=== PATIENT | female | born 1990 | race Caucasian/White ===

== ENCOUNTER 2016-11-01 17:18 | Emergency (ER) | payer OTHER ==
[~2016-11-01] VITALS: Ht 152.4 cm; Wt 67.6 kg
[~2016-11-01 17:18] MED LIST: ALBU0.08 INH; ALBUAER19 INH; BCPILLS PO; ESCI1TAB10 PO; HYOS0.1255 PO; MRC50 PO; ONDA4TAB7 SL; RMCI IV; TRAM-10 PO
[2016-11-01 17:34] VITALS: Ht 152.4 cm; Wt 67.6 kg
[2016-11-01] MEDS ORDERED: SODIUM CHLORIDE 0.9% 1000ML 1,000 ML IV STA (18:01)
[2016-11-01] MEDS ORDERED: ONDANSETRON INJ 2 MG/ML 2 ML VIAL IV STA (18:01)
[2016-11-01] MEDS ORDERED: MoRPHine SULFATE 4 MG/ML 1 ML CARP\\VIAL IV STA ×2 (18:01→19:39)
[2016-11-01 18:14] LABS: URINE APPEARANCE CLEAR (CLEAR); URINE BILIRUBIN NEG (NEG); URINE COLOR YELLOW; URINE EPITHELIAL CELL AUTO >30 /lpf (0-5); URINE NITRITE NEG (NEG); URINE SPECIFIC GRAVITY 1.011 (1.000-1.030); UROBILINOGEN NEG (NEG)
[2016-11-01 18:15] LABS: PREG INTERNAL NEGATIVE QC NEG CLEAR BACKGROUND; PREG INTERNAL POSITIVE QC POS CONTROL LINE
[2016-11-01] MEDS ORDERED: VNTHFA/IN INH (18:19)
[2016-11-01] MEDS ORDERED: HYOS1TAB PO (18:19)
[2016-11-01] MEDS ORDERED: JNL12021 PO (18:19)
[2016-11-01 18:21] LABS: MANUAL MICROSCOPIC REQUIRED? NO; REVIEW REQ? NO
[2016-11-01] MEDS ORDERED: ONDA4TAB10 SL (18:21)
[2016-11-01] MEDS ORDERED: ACET-1256 PO (18:24)
[2016-11-01] MEDS ORDERED: ALBINS/ INH (18:24)
[2016-11-01 18:33] LABS: BASO % 1.1 %; BASO ABS # 0.09 K/uL (0-0.2); COMPLETE YES; EOS % 1.6 %; HEMATOCRIT 38.3 % (37-47); IG% 0.1 %; LYMPH % 40.4 %; LYMPH ABS # 3.38 K/uL (1.2-3.4); MEAN CELL VOLUME 85.3 fL (80-100); MEAN CORPUSCULAR HEMOGLOBIN 29.8 pg (25-34); MEAN PLATELET VOLUME 10.8 fL (7.4-10.4); MONO % 5.7 %; NEUT % 51.1 %; PLATELET COUNT 309 K/uL (130-400); RED BLOOD COUNT 4.49 M/uL (4.2-5.4); WHITE BLOOD COUNT 8.36 K/uL (4.8-10.8)
[2016-11-01 18:59] LABS: BUN/CREATININE RATIO 12.1 (10-20); CALCIUM 8.8 mg/dl (8.5-10.1); CREATININE 0.76 mg/dl (0.60-1.20); POTASSIUM 3.4 mmol/L (3.5-5.1)
[2016-11-01] MEDS ORDERED: KETOROLAC TROMETHAMINE 30 MG/ML VIAL IV STA (19:39)
--- NOTE | 2016-11-01 21:01 | DIAGNOSTIC IMAGING REPORT ---
ULTRASOUND OF THE APPENDIX CLINICAL HISTORY: Right lower quadrant abdominal pain. COMPARISON STUDY: Multiple prior abdominal CT scans, most recently dated 09/08/2016 FINDINGS: Real-time, grayscale, and color flow sonography of the right lower quadrant was performed to assess for acute appendicitis. The appendix was not discretely visualized. No inflammatory changes or free fluid are seen in the right lower quadrant. No lymphadenopathy was seen. IMPRESSION: Nonvisualization of the appendix. Note that this does not exclude acute appendicitis. Electronically signed by: Alex Nichole M.D. 11/01/2016 8:59 PM Dictated Date/Time: 11/01/2016 8:59 PM
--- NOTE | 2016-11-01 21:03 | DIAGNOSTIC IMAGING REPORT ---
ULTRASOUND OF THE PELVIS CLINICAL HISTORY: Right pelvic pain. COMPARISON STUDY: Multiple prior pelvic CT scans, most recently dated 09/08/2016. TECHNIQUE: Real-time, grayscale, and color flow sonography of the pelvis is performed both transabdominally and endovaginally. Images are reviewed in the transverse and longitudinal planes. FINDINGS: Uterus: The uterus is normal in size and echotexture, measuring 8.6 x 2.9 x 4.9 cm. A small nabothian cyst is incidentally noted in the cervix. Endometrium: The endometrium is normal in appearance, and the endometrial stripe is normal in thickness measuring up to 0.5 cm. Ovaries: The ovaries are normal in size and morphology . The right ovary was only seen transabdominally. The right ovary measures 3.1 x 1.4 x 2.0 cm and the left ovary measures 2.4 x 1.3 x 1.8 cm. There are bilateral ovarian follicles. Normal Doppler waveforms are shown within both ovaries. Pelvis: There is no free fluid in the cul-de-sac. No concerning adnexal lesion is seen. IMPRESSION: Unremarkable sonographic assessment of the pelvis. Electronically signed by: Alex Nichole M.D. 11/01/2016 9:01 PM Dictated Date/Time: 11/01/2016 9:00 PM
[2016-11-01] MEDS ORDERED: OXYCODONE HCL IR 5 MG TAB (IMMEDIATE RELEASE) PO STA (21:26)
[2016-11-01 21:40] VITALS: BP 122/70; PULSE 87; TEMP 36.9; O2SAT 98
--- NOTE | 2016-11-02 01:20 | EMERGENCY ROOM VISIT NOTE ---
History Report prepared by Rc: Luanne Marina Under the Supervision of: Dr. Luis Jolly M.D. First contact with patient: 17:45 Chief Complaint: ABDOMINAL PAIN Stated Complaint: ABDOMINAL PAIN History of Present Illness The patient is a 25 year old female who presents to the Emergency Room with complaints of persistent lower abdominal pain since yesterday. She describes the pain as sharp. The patient notes that today, she has been increased pain when she tries to push to urinate and defecate. She had about 5 episodes of loose, watery diarrhea today. She also vomited once just prior to arrival, and her mother notes that she does not usually vomit and so brought her in for evaluation. Currently, she feels nauseated. She ate very little yesterday and has not eaten anything today. The patient has a history of Crohn's disease and is on Remicade. She states that she is unsure to tell if her current symptoms feel like Crohn's disease. Her mother notes that she gets abdominal pain frequently, sometimes 1-2 times a week. Her most recent flare-up was about 3 weeks ago. It is typical for her to have a decreased appetite during Crohn's flare ups. Denies fever, abnormal vaginal discomfort/bleeding, chance of , or other complaints. Source of History: patient, parent Onset: yesterday Position: abdomen (lower) Quality: sharp Timing: other (persistent) Modifying Factors (Worsening): urination, defecation Associated Symptoms: + diarrhea, + nausea, + vomiting, No fevers Review of Systems See HPI for pertinent positives & negatives. A total of 10 systems reviewed and were otherwise negative. Past Medical & Surgical Medical Problems: (1) Anemia due to blood loss (2) Asthma (3) Crohns disease (4) Ovarian cyst Surgical Problems: (1) section (2) Hx of cholecystectomy Family History Hypertension Kidney disease Kidney stones Social History Smoking Status: Never Smoker Alcohol Use: none Drug Use: none Marital Status: single Housing Status: lives with family Occupation Status: employed Current/Historical Medications Scheduled Escitalopram Oxalate (Lexapro), 20 MG PO QPM Ethinyl Estradiol/Norethindr (10/27), 1 TAB PO DAILY Infliximab (Remicade), 1 DOSE IV Q8WK Mercaptopurine (Mercaptopurine), 50 MG PO DAILY Scheduled PRN Acetaminophen (Tylenol), 1,000 MG PO Q6H PRN for Pain or Fever Albuterol Hfa (Ventolin Hfa), 2 PUFFS INH QID PRN for Asthma Symptoms Albuterol Sulf (Proventil 0.083% 2.5MG/3ML), 2.5 MG INH QID PRN for Wheezing Hyoscyamine Sulfate (Levsin), 0.25 MG PO TID PRN for Abdominal Pain/Cramping Ondasetron Odt (Zofran Odt), 4 MG SL Q6H PRN for Nausea or Vomiting Allergies Coded Allergies: No Known Allergies (Verified , `, 09/08/16) Physical Exam Vital Signs Date Time Temp Pulse Resp B/P Pulse Ox O2 Delivery O2 Flow Rate FiO2 11/01/16 21:40 36.9 87 16 122/70 98 11/01/16 21:13 87 16 122/70 98 Room Air 11/01/16 19:22 85 16 124/82 100 Room Air 11/01/16 17:34 36.9 108 18 139/87 100 Room Air Physical Exam Constitutional: Vital signs reviewed. Eyes: Pupils are equal round reactive to light. Conjunctiva are noninjected. ENT: Pharynx is clear without erythema or exudate. Mucous membranes are moist. Neck supple without meningeal signs. Respiratory: Clear to auscultation bilaterally. Breath sounds are equal bilaterally. Cardiovascular: Regular rate and rhythm. No rubs or gallops. GI: Soft, nondistended, right lower quadrant tenderness. No guarding. Positive obturator and psoas sign. Negative Rovsing's sign. Bowel sounds are present. Musculoskeletal: No peripheral edema. Integumentary: No cyanosis. Neurological: The patient is awake and alert. No focal deficits. Psychiatric: Normal affect. Medical Decision & Procedures ER Provider Diagnostic Interpretation: US results as stated below per my review and radiologist interpretation. ULTRASOUND OF THE PELVIS CLINICAL HISTORY: Right pelvic pain. COMPARISON STUDY: Multiple prior pelvic CT scans, most recently dated 09/08/2016. TECHNIQUE: Real-time, grayscale, and color flow sonography of the pelvis is performed both transabdominally and endovaginally. Images are reviewed in the transverse and longitudinal planes. FINDINGS: Uterus: The uterus is normal in size and echotexture, measuring 8.6 x 2.9 x 4.9 cm. A small nabothian cyst is incidentally noted in the cervix. Endometrium: The endometrium is normal in appearance, and the endometrial stripe is normal in thickness measuring up to 0.5 cm. Ovaries: The ovaries are normal in size and morphology . The right ovary was only seen transabdominally. The right ovary measures 3.1 x 1.4 x 2.0 cm and the left ovary measures 2.4 x 1.3 x 1.8 cm. There are bilateral ovarian follicles. Normal Doppler waveforms are shown within both ovaries. Pelvis: There is no free fluid in the cul-de-sac. No concerning adnexal lesion is seen. IMPRESSION: Unremarkable sonographic assessment of the pelvis. Electronically signed by: Alex Nichole M.D. 11/01/2016 9:01 PM Dictated Date/Time: 11/01/2016 9:00 PM ULTRASOUND OF THE PELVIS CLINICAL HISTORY: Right pelvic pain. COMPARISON STUDY: Multiple prior pelvic CT scans, most recently dated 09/08/2016. TECHNIQUE: Real-time, grayscale, and color flow sonography of the pelvis is performed both transabdominally and endovaginally. Images are reviewed in the transverse and longitudinal planes. FINDINGS: Uterus: The uterus is normal in size and echotexture, measuring 8.6 x 2.9 x 4.9 cm. A small nabothian cyst is incidentally noted in the cervix. Endometrium: The endometrium is normal in appearance, and the endometrial stripe is normal in thickness measuring up to 0.5 cm. Ovaries: The ovaries are normal in size and morphology . The right ovary was only seen transabdominally. The right ovary measures 3.1 x 1.4 x 2.0 cm and the left ovary measures 2.4 x 1.3 x 1.8 cm. There are bilateral ovarian follicles. Normal Doppler waveforms are shown within both ovaries. Pelvis: There is no free fluid in the cul-de-sac. No concerning adnexal lesion is seen. IMPRESSION: Unremarkable sonographic assessment of the pelvis. Electronically signed by: Alex Nichole M.D. 11/01/2016 9:01 PM Dictated Date/Time: 11/01/2016 9:00 PM ULTRASOUND OF THE APPENDIX CLINICAL HISTORY: Right lower quadrant abdominal pain. COMPARISON STUDY: Multiple prior abdominal CT scans, most recently dated 09/08/2016 FINDINGS: Real-time, grayscale, and color flow sonography of the right lower quadrant was performed to assess for acute appendicitis. The appendix was not discretely visualized. No inflammatory changes or free fluid are seen in the right lower quadrant. No lymphadenopathy was seen. IMPRESSION: Nonvisualization of the appendix. Note that this does not exclude acute appendicitis. Electronically signed by: Alex Nichole M.D. 11/01/2016 8:59 PM Dictated Date/Time: 11/01/2016 8:59 PM Laboratory Results 11/01/16 18:19 Red Blood Count 4.49, Mean Corpuscular Volume 85.3, Mean Corpuscular Hemoglobin 29.8, Mean Corpuscular Hemoglobin Concent 35.0, Mean Platelet Volume 10.8, Neutrophils (%) (Auto) 51.1, Lymphocytes (%) (Auto) 40.4, Monocytes (%) (Auto) 5.7, Eosinophils (%) (Auto) 1.6, Basophils (%) (Auto) 1.1, Neutrophils # (Auto) 4.27, Lymphocytes # (Auto) 3.38, Monocytes # (Auto) 0.48, Eosinophils # (Auto) 0.13, Basophils # (Auto) 0.09 11/01/16 18:19 Test 11/01/16 18:00 11/01/16 18:19 Urine Color YELLOW Urine Appearance CLEAR (CLEAR) Urine pH 7.0 (4.5-7.5) Urine Specific [place] 1.011 (1.000-1.030) Urine Protein NEG (NEG) Urine Glucose (UA) NEG (NEG) Urine Ketones NEG (NEG) Urine Occult Blood NEG (NEG) Urine Nitrite NEG (NEG) Urine Bilirubin NEG (NEG) Urine Urobilinogen NEG (NEG) Urine Leukocyte Esterase TRACE (NEG) Urine WBC (Auto) 5-10 /hpf (0-5) Urine RBC (Auto) 0-4 /hpf (0-4) Urine Hyaline Casts (Auto) 1-5 /lpf (0-5) Urine Epithelial Cells (Auto) >30 /lpf (0-5) Urine Bacteria (Auto) NEG (NEG) Urine Test NEG (NEG) White Blood Count 8.36 K/uL (4.8-10.8) Red Blood Count 4.49 M/uL (4.2-5.4) Hemoglobin 13.4 g/dL (12.0-16.0) Hematocrit 38.3 % (37-47) Mean Corpuscular Volume 85.3 fL (80-100) Mean Corpuscular Hemoglobin 29.8 pg (25-34) Mean Corpuscular Hemoglobin Concent 35.0 g/dl (32-36) Platelet Count 309 K/uL (130-400) Mean Platelet Volume 10.8 fL (7.4-10.4) Neutrophils (%) (Auto) 51.1 % Lymphocytes (%) (Auto) 40.4 % Monocytes (%) (Auto) 5.7 % Eosinophils (%) (Auto) 1.6 % Basophils (%) (Auto) 1.1 % Neutrophils # (Auto) 4.27 K/uL (1.4-6.5) Lymphocytes # (Auto) 3.38 K/uL (1.2-3.4) Monocytes # (Auto) 0.48 K/uL (0.11-0.59) Eosinophils # (Auto) 0.13 K/uL (0-0.5) Basophils # (Auto) 0.09 K/uL (0-0.2) RDW Standard Deviation 39.5 fL (36.4-46.3) RDW Coefficient of Variation 12.6 % (11.5-14.5) Immature Granulocyte % (Auto) 0.1 % Immature Granulocyte # (Auto) 0.01 K/uL (0.00-0.02) Anion Gap 12.0 mmol/L (3-11) Est Creatinine Clear Calc Drug Dose 95.4 ml/min Estimated GFR () 124.6 Estimated GFR (Non- 107.5 BUN/Creatinine Ratio 12.1 (10-20) Calcium Level 8.8 mg/dl (8.5-10.1) Total Bilirubin 0.6 mg/dl (0.2-1) Direct Bilirubin 0.1 mg/dl (0-0.2) Aspartate Amino Transf (AST/SGOT) 16 U/L (15-37) Alanine Aminotransferase (ALT/SGPT) 16 U/L (12-78) Alkaline Phosphatase 65 U/L (45-117) Total Protein 8.3 gm/dl (6.4-8.2) Albumin 4.0 gm/dl (3.4-5.0) Lipase 167 U/L (73-393) Laboratory results as reviewed by me. Medications Administered Medications (Trade) Dose Ordered Sig/Justice Route Start Time Stop Time Status Last Admin Dose Admin Morphine Sulfate (MoRPHine SULFATE INJ) 4 mg ONE STAT IV 11/01/16 18:01 11/01/16 18:03 DC 11/01/16 18:51 4 MG Ondansetron HCl 4 mg 4 mg NOW STAT IV 11/01/16 18:01 11/01/16 18:03 DC 11/01/16 18:50 4 MG Sodium Chloride (Nss 1000ml) 1,000 ml @ 999 mls/hr Q1H1M STAT IV 11/01/16 18:01 11/01/16 19:01 DC 11/01/16 18:49 999 MLS/HR Ketorolac Tromethamine (Toradol Inj) 10 mg NOW STAT IV 11/01/16 19:39 11/01/16 19:41 DC 11/01/16 20:01 10 MG Morphine Sulfate (MoRPHine SULFATE INJ) 4 mg NOW STAT IV 11/01/16 19:39 11/01/16 19:41 DC 11/01/16 20:01 4 MG Oxycodone HCl (Roxicodone Immediate Rel Tab) 5 mg NOW STAT PO 11/01/16 21:26 11/01/16 21:27 DC 11/01/16 21:41 5 MG ED Course 1750: The patient was evaluated in room C11. A complete history and physical exam was performed. 1800: Ordered NSS 1000 ml @ 999 mls/hr IV, Zofran Inj 4 mg IV, Morphine Sulfate 4 mg IV. 1938: I reassessed the patient. She was still having pain. We talked further and she does not want a CT scan but agrees to a ultrasound of the pelvis and right lower quadrant. Ordered Morphine Sulfate 4 mg IV, Toradol Inj 10 mg IV. 2119: I reassessed the patient. She still does not want a CT scan. She feels better, but said that it hurt when her abdomen was pressed on with the ultrasound probe. She said that she will follow up with her doctor tomorrow. The patient will be discharged home. 2125: Ordered Oxycodone HCl 5 mg PO. Medical Decision This is a 25-year-old female presents with right lower quadrant pain. Differential diagnosis includes Crohn's disease exacerbation, appendicitis, ovarian cyst, ectopic , ovarian torsion. I did perform a limited focused review of portions of the patient's old chart on the electronic medical record. She has been here multiple times for abdominal pain from Crohn's disease. She was most recently here September 08 and had an abdominal CT which was negative for acute process. I did evaluate the patient as noted above. The patient is presenting with pain in her right lower quadrant. This is where she frequently gets pain due to her Crohn's disease. Today her pain feels similar to her prior episodes but she vomited which is not common for her. She gets pain from her Crohn's disease at least 1-2 times a week according to her mother. She is tender in the right lower quadrant which is also common for her when she has this pain. 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 IV access was established. I did treat patient with IV morphine and Zofran. I did order and personally review the patient's urinalysis as described above. I did order and review the patient's blood work as noted in the electronic medical record. Her white blood cell count is not elevated. I did reevaluate the patient. She is still having pain and was given additional morphine IV. I did have a discussion with her about the possibility of appendicitis and obtaining a CT scan. I was hesitant to do so given the number frequent CTs she has had and the risk of radiation exposure. She and her mother agreed that such exposure was not desirable. She does understand that I cannot definitively rule out appendicitis without a CT scan. After further discussion I did order an ultrasound of the right lower quadrant and pelvis. I did review the images myself as well as the radiology report as described above. There is no evidence of ovarian cyst or torsion. Her right lower quadrant ultrasound was indeterminate. I did reassess the patient. She does state that her pain is better but was somewhat worsened by the pressure from the ultrasound probe. After further discussion with her and her mother it was decided that she would wait 12-24 hours and be reassessed rather than have a CT scan at this time. She was given an oxycodone for pain because of the ultrasound but she will return immediately should her pain get much worse or she develop fever. She will try to see her doctor tomorrow for reassessment but in the event that she is unable to do so and has significant pain she will return here for assessment and possible CT scan depending on her symptoms. While her symptoms may be due to Crohn's disease I did not wish to give her prednisone at this time as it may falsely elevate her white blood cell count and if she is assessed tomorrow I did not wish for this to undergo a influence the decision-making regarding a CT scan. She was in agreement with this. She was discharged in good condition. Impression Primary Impression: RLQ abdominal pain Additional Impression: Crohns disease Scribe Attestation I did perform a limited focused review of portions of the patient's old chart on the electronic medical record. The patient has had no recent pertinent visits to this hospital. Departure Information Dispostion Home / Self-Care Referrals No Doctor, Assigned (PCP) Patient Instructions ED Abd Pain Appendx Poss Fem, My [facility] Additional Instructions You have been examined and treated today on an emergency basis only. This is not a substitute for, or an effort to provide, complete comprehensive medical care. It is impossible to recognize and treat all injuries or illnesses in a single emergency department visit. It is therefore important that you follow up closely with your physician in 24 hours. Call as soon as possible for an appointment. Return for worsening symptoms or if you develop fever, vomiting, or any other concerning symptoms. Return here if unable to see your doctor and you are still having persistent pain. Problem Qualifiers Additional Impression: Crohns disease Gastrointestinal tract location: unspecified location
== END 2016-11-01 21:40 | disposition home or self-care (01) ==
LOC: C.EDB 17:19 → C.EDC 21:40
DX: R10.31 Right lower quadrant pain (principal); K50.90 Crohn's disease, unspecified, without complications; J45.909 Unspecified asthma, uncomplicated; Z90.49 Acquired absence of other specified parts of digestive tract; Z82.49 Family history of ischemic heart disease and other diseases of the circulatory system; Z79.899 Other long term (current) drug therapy

== ENCOUNTER → 2017-08-16 | Outpatient (CLI) | payer OTHER ==
[~2017-08-16] MED LIST changes: +ACET-1256 PO; +ALBINS/ INH; -ALBU0.08 INH; -ALBUAER19 INH; -BCPILLS PO; +GADAVIST IV PRN; +GLUCAGON FOR INJ 1 MG VIAL ONE; -HYOS0.1255 PO; +HYOS1TAB PO; +JNL12021 PO; +NURSING VERBAL MED ORDER ONE; +ONDA4TAB10 SL; -ONDA4TAB7 SL; -TRAM-10 PO; +VNTHFA/IN INH
--- NOTE | 2017-08-16 10:38 | DIAGNOSTIC IMAGING REPORT ---
MRI ENTEROGRAPHY OF THE ABDOMEN AND PELVIS WITH AND WITHOUT CONTRAST CLINICAL HISTORY: Crohn's disease. COMPARISON STUDY: CT of the abdomen and pelvis 09/08/2016. Abdominal enterography 06/23/2016. TECHNIQUE: The patient ingested 2 bottles of the Volumen. 1 mg of glucagon was administered IM at 9:30 AM. Utilizing 1.5 Ava magnet, multiplanar, multi echo imaging the abdomen and pelvis was performed pre and postcontrast ministration. Injection of 7.5 cc of Gadavist IV was uneventful. 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 The dominant 1.6 cm lesion within the upper pole of the left kidney is now T1 hyperintense consistent with a proteinaceous/hemorrhagic cyst. There is a duplicated IVC. Normal appendix. The liver, spleen, adrenal glands and pancreas are normal. There is no ascites or lymphadenopathy within the abdomen or the pelvis. There is no evidence for a bowel obstruction. There is apparent mild wall thickening of the terminal ileum that extends for 3 cm. This is best shown on coronal postcontrast image 43 of 88. This has improved. No additional sites of bowel wall thickening are present. No fistula or abscess is identified within the abdomen or the pelvis. IMPRESSION: Slight wall thickening with a 3 cm segment of the terminal ileum which has improved. This favors a mild ileitis rather than underdistention and would be consistent with the provided history of Crohn's disease. No abscess, fistula or bowel obstruction. No additional sites of bowel wall thickening. Electronically signed by: Farzad Conde M.D. 08/16/2017 10:36 AM Dictated Date/Time: 08/16/2017 10:18 AM
== END | disposition home or self-care (01) ==
LOC: C.MRI 07:49
PROVIDERS: ATTEND Internal Medicine
DX: K50.90 Crohn's disease, unspecified, without complications (principal)

== ENCOUNTER → 2017-09-20 | Outpatient (CLI) | payer OTHER ==
[~2017-09-20] MED LIST changes: -GADAVIST IV PRN; -GLUCAGON FOR INJ 1 MG VIAL ONE; -NURSING VERBAL MED ORDER ONE
[2017-09-20 13:02] LABS: BASO % 0.5 %; BASO ABS # 0.03 K/uL (0-0.2); COMPLETE YES; EOS % 8.8 %; HEMATOCRIT 37.5 % (37-47); IG% 0.2 %; LYMPH % 28.4 %; LYMPH ABS # 1.64 K/uL (1.2-3.4); MEAN CELL VOLUME 87.8 fL (80-100); MEAN CORPUSCULAR HEMOGLOBIN 30.7 pg (25-34); MEAN CORPUSCULAR HGB CONC 34.9 g/dl (32-36); MEAN PLATELET VOLUME 11.5 fL (7.4-10.4); MONO % 8.8 %; NEUT % 53.3 %; PLATELET COUNT 263 K/uL (130-400); RED BLOOD COUNT 4.27 M/uL (4.2-5.4); WHITE BLOOD COUNT 5.77 K/uL (4.8-10.8)
[2017-09-20 13:30] LABS: ALT/SGPT 31 U/L (12-78); AST/SGOT 34 U/L (15-37); BLOOD UREA NITROGEN 8 mg/dl (7-18); BUN/CREATININE RATIO 11.3 (10-20); C-REACTIVE PROTEIN 0.72 mg/dl (0-0.29); CALCIUM 7.9 mg/dl (8.5-10.1); CARBON DIOXIDE 22 mmol/L (21-32); CHLORIDE 107 mmol/L (98-107); CREATININE 0.71 mg/dl (0.60-1.20); GLUCOSE 92 mg/dl (70-99); POTASSIUM 3.5 mmol/L (3.5-5.1); SODIUM 137 mmol/L (136-145)
[2017-09-20 13:33] LABS: ALB/GLOB RATIO 0.9 (0.9-2); ALKALINE PHOSPHATASE 68 U/L (45-117)
== END | disposition home or self-care (01) ==
LOC: C.LAB1850 12:08
PROVIDERS: ATTEND Physician Assistant
DX: K50.90 Crohn's disease, unspecified, without complications (principal); R19.7 Diarrhea, unspecified

== ENCOUNTER → 2017-10-15 | Day surgery (SDC) | payer OTHER ==
[2017-09-27 13:20] VITALS: Ht 152.4 cm; Wt 74.1 kg
[~2017-10-15] VITALS: Ht 152.4 cm; Wt 74.1 kg
[~2017-10-15] MED LIST changes: -ACET-1256 PO; -ESCI1TAB10 PO; +FENTANYL CITRATE INJ 50 MCG/1 ML 2 ML VIAL ONE; +LIDOCAINE HCL 2% 2 ML VIAL (20MG/ML) ONE; -ONDA4TAB10 SL; +ONDA4TAB46 PO; +PRED10TA PO; +PROPOFOL IV EMULSION 10 MG/ML 20 ML VIAL IV ONE; +SODIUM CHLORIDE 0.9% 500ML 500 ML IV ONE
[2017-10-15 14:03] VITALS: TEMP 37.1
--- NOTE | 2017-10-15 14:25 | Endo History and Physical ---
History & Physical Date of Service: Oct 15, 2017. Chief Complaint: Crohn's Disease Referring Physician: Dr. Charles History of Present Illness 26 yo CF who presents for colonoscopy secondary to Crohn's Disease. Past Medical History Asthma, Gastrointestinal Disorder, Depression Past Surgical History Hx Cardiac Surgery: No Hx Internal Defibrillator: No Hx Pacemaker: No Hx Abdominal Surgery: Yes (VISH, X 1) Hx of Implantable Prosthesis: No Hx Post-Op Nausea and Vomiting: No Hx Cancer Surgery: No Hx Thoracic Surgery: No Hx Orthopedic: No Hx Urinary Tract Surgery: No Family History None Social History Smoking Status: Never Smoker Hx Substance Use: No Hx Alcohol Use: No Allergies Coded Allergies: No Known Allergies (Verified , `, 10/15/17) Current Medications Reported Home Medications Medications Dose Route/Sig Max Daily Dose Days Date Category Dose Instructions Prednisone 10 Mg Tab 0 PO UD 09/27/17 Reported STERAPRED 10MG 12 DAY Zofran (Ondansetron HCl) 4 Mg Tab 4 Mg PO Q6H PRN 09/27/17 Reported Levsin (Hyoscyamine Sulfate) 0.125 Mg Tab 0.125 Mg PO TID PRN 09/27/17 Reported Proventil 0.083% 2.5MG/3ML (Albuterol Sulf) 2.5 Mg/3 Ml Nebu 2.5 Mg INH QID PRN 11/01/16 Reported Ventolin Hfa (Albuterol) 200 Puffs/05114 Mcg Aers 2 Puffs INH QID PRN 11/01/16 Reported Junel 10/27 (Ethinyl Estradiol/Norethindrone) 1 Ea Tab 1 Tab PO QAM 11/01/16 Reported Mercaptopurine 50 Mg Tab 50 Mg PO QAM 11/18/15 Reported Remicade (Infliximab) 100 Mg/10 Ml Inj 1 Dose IV Q8WK 11/05/15 Reported Vital Signs Weight (Kilograms): 74.09 Height (Feet): 5 Height (Inches): 0 Date Time Temp Pulse Resp B/P (MAP) Pulse Ox O2 Delivery O2 Flow Rate FiO2 10/15/17 14:03 37.1 77 24 120/68 (85) 96 Room Air Physical Exam General Appearance: WD/WN, no apparent distress Respiratory/Chest: Auscultation: breath sounds normal Cardiovascular: Heart Auscultation: RRR Abdomen: Bowel Sounds: normal Inspection & Palpation: soft, non-distended, no tenderness, guarding & rebound Assessment and Plan Assessment: 26 yo CF who presents for colonoscopy secondary to Crohn's Disease. Plan: Proceed with colonoscopy.
--- NOTE | 2017-10-15 15:14 | GI REPORT ---
Procedure Date: 10/15/2017 2:23 PM Procedure: Colonoscopy Indications: Follow-up of Crohn's disease Medicines: Monitored Anesthesia Care Complications: No immediate complications. Estimated Blood Loss: Estimated blood loss: none. Procedure: Pre-Anesthesia Assessment: - Prior to the procedure, a History and Physical was performed, and patient medications and allergies were reviewed. The patient's tolerance of previous anesthesia was also reviewed. The risks and benefits of the procedure and the sedation options and risks were discussed with the patient. All questions were answered, and informed consent was obtained. Prior Anticoagulants: The patient has taken no previous anticoagulant or antiplatelet agents. ASA Grade Assessment: II - A patient with mild systemic disease. After reviewing the risks and benefits, the patient was deemed in satisfactory condition to undergo the procedure. After I obtained informed consent, the scope was passed under direct vision. Throughout the procedure, the patient's blood pressure, pulse, and oxygen saturations were monitored continuously. The scope was introduced through the anus and advanced to the terminal ileum. The colonoscopy was performed without difficulty. The patient tolerated the procedure well. The quality of the bowel preparation was good. The terminal ileum, ileocecal valve, appendiceal orifice, and rectum were photographed. Findings: The perianal and digital rectal examinations were normal. The terminal ileum appeared normal. Biopsies were taken with a cold forceps for histology. The colon (entire examined portion) appeared normal. Biopsies were taken with a cold forceps for histology. Impression: - The examined portion of the ileum was normal. Biopsied. - The entire examined colon is normal. Biopsied. Recommendation: - Resume previous diet. - Continue present medications. - Repeat colonoscopy for surveillance based on pathology results. - Return to GI office as previously scheduled. Shay Yeager DO 10/15/2017 3:13:57 PM This report has been signed electronically. Note Initiated On: 10/15/2017 2:23 PM I attest to the content of the Intraoperative Record and orders documented therein, exceptions below
--- NOTE | 2017-10-15 15:20 | Anesthesiology Progress Note ---
Anesthesia Post Op Note Date & Time Oct 15, 2017 at 15:19 Vital Signs Pain Intensity: 0 Vital Signs Past 12 Hours Date Time Temp Pulse Resp B/P (MAP) Pulse Ox O2 Delivery O2 Flow Rate FiO2 10/15/17 15:10 89 16 100/58 (72) 94 Room Air 10/15/17 14:03 37.1 77 24 120/68 (85) 96 Room Air Notes Mental Status: alert / awake / arousable, participated in evaluation Pt Amnestic to Procedure: Yes Nausea / Vomiting: adequately controlled Pain: adequately controlled Airway Patency, RR, SpO2: stable & adequate BP & HR: stable & adequate Hydration State: stable & adequate Anesthetic Complications: no major complications apparent
--- NOTE | 2017-10-15 15:21 | Discharge Instructions ---
Endoscopy Patient Instructions Date / Procedure(s) Performed Oct 15, 2017. Colonoscopy Allergy Information Coded Allergies: No Known Allergies (Verified , `, 10/15/17) Discharge Date / Findings Oct 15, 2017. Random biopsies of Terminal ileum and colon. No evidence of Crohn's disease activity on this exam. Medication Instructions OK to resume all medications today as prescribed Reported Home Medications Medications Dose Route/Sig Max Daily Dose Days Date Category Dose Instructions Prednisone 10 Mg Tab 0 PO UD 09/27/17 Reported STERAPRED 10MG 12 DAY Zofran (Ondansetron HCl) 4 Mg Tab 4 Mg PO Q6H PRN 09/27/17 Reported Levsin (Hyoscyamine Sulfate) 0.125 Mg Tab 0.125 Mg PO TID PRN 09/27/17 Reported Proventil 0.083% 2.5MG/3ML (Albuterol Sulf) 2.5 Mg/3 Ml Nebu 2.5 Mg INH QID PRN 11/01/16 Reported Ventolin Hfa (Albuterol) 200 Puffs/[id number] Mcg Aers 2 Puffs INH QID PRN 11/01/16 Reported Junel 10/27 (Ethinyl Estradiol/Norethindrone) 1 Ea Tab 1 Tab PO QAM 11/01/16 Reported Mercaptopurine 50 Mg Tab 50 Mg PO QAM 11/18/15 Reported Remicade (Infliximab) 100 Mg/10 Ml Inj 1 Dose IV Q8WK 11/05/15 Reported Provider Instructions Activity Restrictions - No exercising or heavy lifting for 24 hours. - Do not drink alcohol the day of the procedure. - Do not drive a car or operate machinery until the day after the procedure. - Do not make any important decisions or sign important papers in 24 hours after the procedure. Following Day: - Return to full activity which may include returning to work/school. Diet Start your diet with liquids and light foods (jello, soup, juice, toast). Then eat your usual diet if not nauseated. Treatment For Common After Affects For mild abdominal pain, bloating, or excessive gas: - Rest - Eat lightly - Lie on right side Follow-Up Information Follow-up with Dr. Charles as scheduled Anesthesia Information What You Should Know You have had a procedure that required some medicine to reduce anxiety and discomfort. This treatment is called moderate sedation. After receiving the treatment, you may be sleepy, but you will be able to breathe on your own. The effects of the treatment may last for several hours. Follow these instructions along with Activity/Diet recommendations noted above: * Do NOT do anything where dizziness or clumsiness would be dangerous. * Rest quietly at home today, then you can be up and about tomorrow. * Have a responsible person stay with you the rest of today. * You may have had an I.V. today. If so, you may take the dressing off later today. Recommendations Call your doctor if: * Trouble breathing * Continuous vomiting for more than 24 hours * Temperature above 101 degrees * Severe abdominal pain or bloating * Pain not relieved by pain medicine ordered * There is increased drainage or redness from any incision * A large amount of rectal bleeding greater than 2-3 tablespoons. (If you had a polyp/s removed or have hemorrhoids, a small amount of blood - from the rectum is to be expected.) * You have any unanswered questions or concerns. IN THE EVENT OF A SERIOUS EMERGENCY, GO TO THE NEAREST EMERGENCY ROOM Your discharge instructions were prepared by provider Shay Yeager. Patient Instructions Signature Page Chiquita Gama Patient (or Guardian) Signature/Date: I have read and understand the instructions given to me by my caregivers. Caregiver/RN/Doctor Signature/Date: The above-named patient and/or guardian has received patient instructions on this date. + Original Patient Signature Page (only) stays with chart. Please make copy for patient.
[2017-10-15 15:40] VITALS: BP 103/57; PULSE 81; O2SAT 97
== END | disposition home or self-care (01) ==
LOC: C.GI 13:38
PROVIDERS: ATTEND Internal Medicine
DX: Z09 Encounter for follow-up examination after completed treatment for conditions other than malignant neoplasm (principal); K50.90 Crohn's disease, unspecified, without complications; J45.909 Unspecified asthma, uncomplicated; Z79.899 Other long term (current) drug therapy; E66.9 Obesity, unspecified; Z68.31 Body mass index [BMI] 31.0-31.9, adult; Z90.89 Acquired absence of other organs; Z90.49 Acquired absence of other specified parts of digestive tract

== ENCOUNTER 2018-05-26 19:11 | Emergency (ER) | payer OTHER ==
[~2018-05-26] VITALS: Ht 152.4 cm; Wt 71.3 kg
[~2018-05-26 19:11] MED LIST changes: -FENTANYL CITRATE INJ 50 MCG/1 ML 2 ML VIAL ONE; -LIDOCAINE HCL 2% 2 ML VIAL (20MG/ML) ONE; -PRED10TA PO; -PROPOFOL IV EMULSION 10 MG/ML 20 ML VIAL IV ONE; +RIFA550T2 PO; -SODIUM CHLORIDE 0.9% 500ML 500 ML IV ONE
[2018-05-26 19:14] VITALS: TEMP 36.8; Ht 152.4 cm; Wt 71.3 kg
[2018-05-26] MEDS ORDERED: KETOROLAC TROMETHAMINE 30 MG/ML VIAL IV STA (19:28)
[2018-05-26] MEDS ORDERED: ONDANSETRON INJ 2 MG/ML 2 ML VIAL IV STA (19:28)
[2018-05-26] MEDS ORDERED: SODIUM CHLORIDE 0.9% 1000ML 1,000 ML IV STA (19:28)
[2018-05-26] MEDS ORDERED: OPTIRAY 320 IV PRN (19:45)
[2018-05-26 19:51] LABS: BASO % 0.8 %; BASO ABS # 0.07 K/uL (0-0.2); EOS % 1.5 %; EOS ABS # 0.14 K/uL (0-0.5); HEMATOCRIT 36.5 % (37-47); IG# 0.02 K/uL (0.00-0.02); LYMPH % 36.8 %; LYMPH ABS # 3.43 K/uL (1.2-3.4); MEAN CELL VOLUME 83.9 fL (80-100); MEAN CORPUSCULAR HEMOGLOBIN 27.6 pg (25-34); MEAN CORPUSCULAR HGB CONC 32.9 g/dl (32-36); MEAN PLATELET VOLUME 10.9 fL (7.4-10.4); MONO % 6.4 %; NEUT % 54.3 %; NEUT ABS # 5.07 K/uL (1.4-6.5); PLATELET COUNT 264 K/uL (130-400); RED CELL DISTRIBUTION WIDTH CV 13.1 % (11.5-14.5); RED CELL DISTRIBUTION WIDTH SD 39.9 fL (36.4-46.3); WHITE BLOOD COUNT 9.33 K/uL (4.8-10.8)
[2018-05-26 20:11] LABS: ALBUMIN 3.2 gm/dl (3.4-5.0); ALKALINE PHOSPHATASE 65 U/L (45-117); ALT/SGPT 10 U/L (12-78); AST/SGOT 7 U/L (15-37); BLOOD UREA NITROGEN 9 mg/dl (7-18); CALCIUM 8.5 mg/dl (8.5-10.1); CARBON DIOXIDE 25 mmol/L (21-32); GLUCOSE 98 mg/dl (70-99); LIPASE 179 U/L (73-393); POTASSIUM 3.1 mmol/L (3.5-5.1); SODIUM 141 mmol/L (136-145); TOTAL PROTEIN 7.7 gm/dl (6.4-8.2)
--- NOTE | 2018-05-26 20:24 | EMERGENCY ROOM VISIT NOTE ---
History Report prepared by Rc: Paty Hutchins Under the Supervision of: Dr. Juice Amaral D.O. First contact with patient: 19:17 Chief Complaint: FLANK PAIN Stated Complaint: STOMACH PAIN, BACK PAIN, R FLANK PAIN History of Present Illness The patient is a 27 year old female who presents to the Emergency Room with complaints of constant right flank pain starting 2 days ago. The patient states that she awoke with abdominal pain 2 days ago that radiates into her back. She states that she went to her PCP that day who recommended she come to the ED, but she didn't want to come at that time. The patient complains of nausea and pain when trying to push to urinate. The patient denies vomiting, anything making it better or worse, the pain wrapping around her side to her back, vaginal discharge, chance of , burning with urination, and a history of UTIs. The patient notes a history of a cholecystectomy, but denies a history of an appendectomy. The patient notes that she is on oral control and her LNMP was a week ago. She notes that she has been having spotting for the past 2 weeks. Source of History: patient Onset: 2 days ago Position: other (right flank) Quality: other (radiating) Timing: constant Associated Symptoms: + nausea, + back pain, + urinary symptoms (pain when trying to urinate), No vomiting Note: The patient complains of spotting. The patient denies anything making it better/ worse, the pain wrapping around her side to her back, vaginal discharge, chance of , and burning with urination. Review of Systems See HPI for pertinent positives & negatives. A total of 10 systems reviewed and were otherwise negative. Past Medical & Surgical Medical Problems: (1) Anemia due to blood loss (2) Asthma (3) Crohns disease (4) Ovarian cyst Surgical Problems: (1) section (2) Hx of cholecystectomy Family History Hypertension Kidney disease Kidney stones Social History Smoking Status: Never Smoker Alcohol Use: none Drug Use: none Marital Status: single Housing Status: lives with family Occupation Status: employed Current/Historical Medications Scheduled Cephalexin (Keflex), 1 CAP PO TID Ethinyl Estradiol/Norethindr (Junel 10/27), 1 TAB PO QAM Infliximab (Remicade), 1 DOSE IV Q8WK Mercaptopurine (Mercaptopurine), 50 MG PO QAM Rifaximin (Xifaxan), 1 TAB PO BID Scheduled PRN Albuterol Hfa (Ventolin Hfa), 2 PUFFS INH QID PRN for Asthma Symptoms Albuterol Sulf (Proventil 0.083% 2.5MG/3ML), 2.5 MG INH QID PRN for Wheezing Hyoscyamine Sulfate (Levsin), 0.125 MG PO TID PRN for Pain Ondansetron Hcl (Zofran), 4 MG PO Q6H PRN for Nausea Allergies Coded Allergies: No Known Allergies (Verified , `, 05/23/18) Physical Exam Vital Signs Date Time Temp Pulse Resp B/P (MAP) Pulse Ox O2 Delivery O2 Flow Rate FiO2 05/26/18 21:15 05/26/18 20:50 90 16 120/66 96 Room Air 05/26/18 19:14 36.8 89 18 137/88 97 Room Air Physical Exam GENERAL: Sitting up in bed, alert, well appearing, well nourished, no distress, non-toxic EYE EXAM: normal conjunctiva. OROPHARYNX: no exudate, no erythema, lips, buccal mucosa, and tongue normal and mucous membranes are moist NECK: supple, no nuchal rigidity, no adenopathy, non-tender LUNGS: Clear to auscultation. Normal chest wall mechanics HEART: no murmurs, S1 normal and S2 normal ABDOMEN: abdomen soft, minimal tenderness in RLQ, normo-active bowel sounds, no masses, no rebound or guarding. BACK: Back is symmetrical on inspection and there is no deformity, no midline tenderness, no CVA tenderness. SKIN: no rashes and no bruising UPPER EXTREMITIES: upper extremities are grossly normal. LOWER EXTREMITIES: No pitting edema. NEURO EXAM: Normal sensorium, cranial nerves II-XII grossly intact, normal speech, no gross weakness of arms, no gross weakness of legs. Medical Decision & Procedures ER Provider Diagnostic Interpretation: Radiology results as stated below per my review and the radiologist's interpretation: CT OF THE ABDOMEN AND PELVIS WITH CONTRAST CLINICAL HISTORY: Right lower quadrant abdominal pain. COMPARISON STUDY: CT of the abdomen and pelvis September 08, 2016 and pelvic ultrasound November 01, 2016. TECHNIQUE: Following IV administration of 122 mL of Optiray-320, axial images of the abdomen and pelvis were obtained from the lung bases to the proximal femurs. Images were reviewed in the axial, sagittal, and coronal planes. IV contrast was administered without complication. A dose lowering technique was utilized adhering to the principles of ALARA. CT DOSE: 294.08 mGy.cm FINDINGS: Lung bases are clear. The liver, spleen, adrenal glands and pancreas are normal. There is no biliary ductal dilatation status post cholecystectomy. There is no peripancreatic infiltration. 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 Prominence of the collecting systems is unchanged. A few cysts are noted within the kidney. A 1.3 cm intermediate attenuation focus within the upper aspect of the left renal moiety has decreased in size since prior CT. Therefore, this is benign. The caliber and wall thickness of small and large bowel are normal. The appendix is normal. There is no free fluid. There is no lymphadenopathy. No suspicious osseous lesion is present. No ureteral calculi are identified. IMPRESSION: 1. No acute process within the abdomen and pelvis. 2. Normal appendix. No bowel obstruction. 3. Horseshoe kidney. Electronically signed by: David Arreguin M.D. 05/26/2018 8:44 PM Dictated Date/Time: 05/26/2018 8:37 PM Laboratory Results 05/26/18 19:35 Red Blood Count 4.35, Mean Corpuscular Volume 83.9, Mean Corpuscular Hemoglobin 27.6, Mean Corpuscular Hemoglobin Concent 32.9, Mean Platelet Volume 10.9, Neutrophils (%) (Auto) 54.3, Lymphocytes (%) (Auto) 36.8, Monocytes (%) (Auto) 6.4, Eosinophils (%) (Auto) 1.5, Basophils (%) (Auto) 0.8, Neutrophils # (Auto) 5.07, Lymphocytes # (Auto) 3.43, Monocytes # (Auto) 0.60, Eosinophils # (Auto) 0.14, Basophils # (Auto) 0.07 05/26/18 19:35 Test 05/26/18 19:35 05/26/18 19:40 White Blood Count 9.33 K/uL (4.8-10.8) Red Blood Count 4.35 M/uL (4.2-5.4) Hemoglobin 12.0 g/dL (12.0-16.0) Hematocrit 36.5 % (37-47) Mean Corpuscular Volume 83.9 fL (80-100) Mean Corpuscular Hemoglobin 27.6 pg (25-34) Mean Corpuscular Hemoglobin Concent 32.9 g/dl (32-36) Platelet Count 264 K/uL (130-400) Mean Platelet Volume 10.9 fL (7.4-10.4) Neutrophils (%) (Auto) 54.3 % Lymphocytes (%) (Auto) 36.8 % Monocytes (%) (Auto) 6.4 % Eosinophils (%) (Auto) 1.5 % Basophils (%) (Auto) 0.8 % Neutrophils # (Auto) 5.07 K/uL (1.4-6.5) Lymphocytes # (Auto) 3.43 K/uL (1.2-3.4) Monocytes # (Auto) 0.60 K/uL (0.11-0.59) Eosinophils # (Auto) 0.14 K/uL (0-0.5) Basophils # (Auto) 0.07 K/uL (0-0.2) RDW Standard Deviation 39.9 fL (36.4-46.3) RDW Coefficient of Variation 13.1 % (11.5-14.5) Immature Granulocyte % (Auto) 0.2 % Immature Granulocyte # (Auto) 0.02 K/uL (0.00-0.02) Anion Gap 9.0 mmol/L (3-11) Est Creatinine Clear Calc Drug Dose 91.4 ml/min Estimated GFR () 115.5 Estimated GFR (Non- 99.6 BUN/Creatinine Ratio 11.6 (10-20) Calcium Level 8.5 mg/dl (8.5-10.1) Total Bilirubin 0.2 mg/dl (0.2-1) Direct Bilirubin < 0.1 mg/dl (0-0.2) Aspartate Amino Transf (AST/SGOT) 7 U/L (15-37) Alanine Aminotransferase (ALT/SGPT) 10 U/L (12-78) Alkaline Phosphatase 65 U/L (45-117) Total Protein 7.7 gm/dl (6.4-8.2) Albumin 3.2 gm/dl (3.4-5.0) Lipase 179 U/L (73-393) Urine Color RED Urine Appearance CLOUDY (CLEAR) Urine pH 8.5 (4.5-7.5) Urine Specific [place] 1.021 (1.000-1.030) Urine Protein NEG (NEG) Urine Glucose (UA) NEG (NEG) Urine Ketones TRACE (NEG) Urine Occult Blood 3+ (NEG) Urine Nitrite NEG (NEG) Urine Bilirubin NEG (NEG) Urine Urobilinogen NEG (NEG) Urine Leukocyte Esterase TRACE (NEG) Urine WBC (Auto) 10-30 /hpf (0-5) Urine RBC (Auto) >30 /hpf (0-4) Urine Hyaline Casts (Auto) 5-10 /lpf (0-5) Urine Epithelial Cells (Auto) >30 /lpf (0-5) Urine Bacteria (Auto) NEG (NEG) Urine Test NEG (NEG) Laboratory results per my review. Medications Administered Medications (Trade) Dose Ordered Sig/Justice Route Start Time Stop Time Status Last Admin Dose Admin Sodium Chloride 1,000 ml @ 999 mls/hr Q1H1M STAT IV 05/26/18 19:28 05/26/18 20:28 DC 05/26/18 19:37 999 MLS/HR Ondansetron HCl (Zofran Inj) 4 mg NOW STAT IV 05/26/18 19:28 05/26/18 19:30 DC 05/26/18 19:37 4 MG Ketorolac Tromethamine (Toradol Inj) 30 mg NOW STAT IV 05/26/18 19:28 05/26/18 19:30 DC 05/26/18 19:37 30 MG Cephalexin Monohydrate (Keflex Cap) 500 mg NOW ONCE PO 05/26/18 21:15 05/26/18 21:16 DC 05/26/18 21:16 500 MG ED Course ED COURSE: Vital signs were reviewed and showed that they were normal. The patients medical record was reviewed The above diagnostic studies were performed and reviewed. ED treatments and interventions as stated above. 1924: The patient was evaluated in room C9. A complete history and physical examination was performed. 1927: Ordered Toradol Inj 30 mg IV, Zofran Inj 4 mg IV, NSS 1000 ml @ 999 mls/ hr IV. 2101: Upon reevaluation, the patient is resting comfortably. I discussed my findings with the patient and she understands and agrees with the treatment plan. Based on the patients age, coexisting illnesses, exam and lab findings the decision to treat as an outpatient was made. The patient remained stable while under my care. The patient appeared well at the time of discharge. 2114: Ordered Keflex Cap 500 mg PO. Medical Decision Differential diagnoses includes but is not limited to gastritis, peptic ulcer disease, GERD, gallbladder disease, pancreatitis, small bowel obstruction, acute coronary syndrome, pericarditis, ischemic bowel, irritable bowel disease, irritable bowel syndrome, appendicitis, diverticulitis, malignancy, hernia, urinary tract infection, torsion, /ectopic , perforation, trauma, infectious. Patient is a 27-year-old female who presents the ER for right lower quadrant abdominal pain which is been present since this past Sunday. She does admit to some urinary complaints per vitals are stable. CBC along with BMP shows a mild hypokalemia. Bilirubin along with LFTs and lipase was normal. negative. UA was contaminated. With urinary symptoms did elect to place on Keflex. CT abdomen pelvis shows no signs of acute appendicitis. No obvious signs of ovarian torsion. Patient was updated bedside. She was given fluids and Toradol. She is discharged to follow-up with PCP as an outpatient. Discussed with Pt concerning signs and symptoms to watch out for. Pt was instructed to follow up with their PCP and discussed with the patient their option to return to the ED at anytime for persistent or worsening symptoms. The appropriate anticipatory guidance and out-patient management, including indications for return to the emergency department, were explained at length to the patient and understood. Medication Reconcilliation Current Medication List: was personally reviewed by me Blood Pressure Screening Patient's blood pressure: Normal blood pressure Blood pressure disposition: Did not require urgent referral Impression Primary Impression: Abdominal pain Scribe Attestation The scribe's documentation has been prepared under my direction and personally reviewed by me in its entirety. I confirm that the note above accurately reflects all work, treatment, procedures, and medical decision making performed by me. Departure Information Dispostion Home / Self-Care Prescriptions Cephalexin (KEFLEX) 500 Mg Cap 1 CAP PO TID for 7 Days, #21 CAP Prov: Juice Amaral, DO 05/26/18 Referrals Evaristo Charles M.D.([facility]) (PCP) Forms HOME CARE DOCUMENTATION FORM, IMPORTANT VISIT INFORMATION Patient Instructions My [facility] Additional Instructions Please follow up with your primary care doctor with in the next 24 hours. Any worsening of your symptoms, please return to the ED immediately. This includes any fevers greater than 100.4, worsening pain, chest pain, shortness breath, persistent nausea, vomiting, unable to eat or drink, or any other concerning signs or symptoms from your standpoint. Please take antibiotics as prescribed. Problem Qualifiers Primary Impression: Abdominal pain Abdominal location: unspecified location Qualified Codes: R10.9 - Unspecified abdominal pain
--- NOTE | 2018-05-26 20:45 | DIAGNOSTIC IMAGING REPORT ---
CT OF THE ABDOMEN AND PELVIS WITH CONTRAST CLINICAL HISTORY: Right lower quadrant abdominal pain. COMPARISON STUDY: CT of the abdomen and pelvis September 08, 2016 and pelvic ultrasound November 01, 2016. TECHNIQUE: Following IV administration of 122 mL of Optiray-320, axial images of the abdomen and pelvis were obtained from the lung bases to the proximal femurs. Images were reviewed in the axial, sagittal, and coronal planes. IV contrast was administered without complication. A dose lowering technique was utilized adhering to the principles of ALARA. CT DOSE: 294.08 mGy.cm FINDINGS: Lung bases are clear. The liver, spleen, adrenal glands and pancreas are normal. There is no biliary ductal dilatation status post cholecystectomy. There is no peripancreatic infiltration. 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 Prominence of the collecting systems is unchanged. A few cysts are noted within the kidney. A 1.3 cm intermediate attenuation focus within the upper aspect of the left renal moiety has decreased in size since prior CT. Therefore, this is benign. The caliber and wall thickness of small and large bowel are normal. The appendix is normal. There is no free fluid. There is no lymphadenopathy. No suspicious osseous lesion is present. No ureteral calculi are identified. IMPRESSION: 1. No acute process within the abdomen and pelvis. 2. Normal appendix. No bowel obstruction. 3. Horseshoe kidney. Electronically signed by: David Arreguin M.D. 05/26/2018 8:44 PM Dictated Date/Time: 05/26/2018 8:37 PM
[2018-05-26 20:50] VITALS: BP 120/66; PULSE 90; O2SAT 96
[2018-05-26] MEDS ORDERED: CEPH-571 PO (21:05)
[2018-05-26] MEDS ORDERED: CEPHALEXIN MONOHYDRATE 250 MG CAP PO ONE (21:15)
--- NOTE | 2018-05-28 13:13 | Pharmacy Progress Note ---
ED Pharmacist Culture FollowUp Date of Service: May 28, 2018. Patient was sent home with a prescription for Cephalexin 500mg PO TID x 7 days, which should cover the e coli and Grp B strep growing from the patient's URINE culture.
== END 2018-05-26 21:15 | disposition home or self-care (01) ==
LOC: C.EDB 19:16 → C.EDC 21:15
DX: R10.31 Right lower quadrant pain (principal); E87.6 Hypokalemia; Z90.49 Acquired absence of other specified parts of digestive tract; K50.90 Crohn's disease, unspecified, without complications; J45.909 Unspecified asthma, uncomplicated; Z79.3 Long term (current) use of hormonal contraceptives; Z79.899 Other long term (current) drug therapy; Z82.49 Family history of ischemic heart disease and other diseases of the circulatory system; Z84.1 Family history of disorders of kidney and ureter

== ENCOUNTER 2019-01-11 15:18 | Inpatient (IN) ==
[2019-01-11] MEDS ORDERED: ONDANSETRON INJ 2 MG/ML 2 ML VIAL IV STA (15:38)
[2019-01-11] MEDS ORDERED: SODIUM CHLORIDE 0.9% 1000ML 1,000 ML IV SCH (15:45)
[2019-01-11] MEDS: MoRPHine SULFATE 4 MG/ML 1 ML CARP\\VIAL IV PRN ×3 (15:54→18:58)
[2019-01-11 15:55] LABS: Basophils # (auto) 0.04 K/uL (0-0.2); Basophils % (auto) 0.5 %; Eosinophils # (auto) 0.09 K/uL (0-0.5); Eosinophils % (auto) 1.1 %; Hematocrit (blood only) 37.3 % (37-47); Hemoglobin 13.2 g/dL (12.0-16.0); Immature Granulocytes # (auto) 0.01 K/uL (0.00-0.02); Immature Granulocytes % (auto) 0.1 %; Lymphocytes % (auto) 24.5 %; Mean Corpuscular Hgb Conc 35.4 g/dL (32-36); Monocytes # (auto) 0.47 K/uL (0.11-0.59); Monocytes % (auto) 5.8 %; Neutrophils # (auto) 5.55 K/uL (1.4-6.5); Platelet Count 251 K/uL (130-400); RDW Coefficient of Variation 13.4 % (11.5-14.5); RDW Standard Deviation 40.7 fL (36.4-46.3); Red Blood Count 4.44 M/uL (4.2-5.4); White Blood Count 8.16 K/uL (4.8-10.8)
--- NOTE | 2019-01-11 15:55 | Emergency Department Note ---
Entered by Malik Acosta acting as a scribe for History of Present Illness General Chief complaint: Flank Pain Stated complaint: LOWER RIGHT SIDE AND BACK PAIN Time Seen by Provider: 01/11/19 15:32 Source: patient Limitations: no limitations History of Present Illness Onset (ago): day(s) 5 Location: right (flank) Pain Consistency: + constant Maximum Pain Intensity: 8 Quality: + constant Associated symptoms: + nausea/vomiting and + other (losing weight); no fever/chills The patient is a 28 year old female who presents to the Emergency Room with complaints of constant right flank and abdominal pain starting 5 days ago. The patient states she saw here PCP today and her PCP sent her to the ED. The patient states she lost 10 pounds in the past couple of days. The patient notes she has been taking Tylenol. The patient notes she has vomited. She denies any fevers. The patient notes she has crohn's disease and states she has not gotten any surgeries for Crohn's. She states she had her gallbladder removed. I saw the patient on January 07 for LLQ pain. Renal and pelvic US were unrevealing. Lab work was unrevealing. Urine suggested possible UTI. Patient was discharged on Omnicef. Of note, her pain is now on the right. Home Medications Home Medications Medication Instructions Recorded Confirmed Type albuterol sulfate [Ventolin HFA] 2 puff INHALATION Q6H PRN 06/15/18 01/11/19 History Remicade 100 mg IV .EVERY 6 WEEKS 11/13/18 01/11/19 History hyoscyamine sulfate 0.25 mg PO TID PRN 01/07/19 01/11/19 History mercaptopurine 75 mg PO DAILY 01/07/19 01/11/19 History ondansetron 8 mg TRANSLINGUAL Q6 PRN 01/07/19 01/11/19 History cephalexin 500 mg PO TID 01/11/19 01/11/19 History tramadol 50 mg PO Q6H PRN 01/11/19 01/11/19 History Allergies Allergy/AdvReac Type Severity Reaction Status Date / Time No Known Allergies Allergy ` Verified 01/11/19 15:52 Past Med/Surg History Medical History Depression (Chronic) Asthma (Chronic) USED RESCUE INHALER LAST "A COUPLE MONTHS" Crohns disease (Chronic) Anxiety Crohn's disease GERD (gastroesophageal reflux disease) Headache HX IBS (irritable bowel syndrome) Surgical History History of cholecystectomy (Resolved) History of colonoscopy (Resolved) History of colposcopy (Resolved) History of (Resolved) History of adenoidectomy History of tonsillectomy History of tooth extraction Family History Grandmother Kidney stone Social History Preferred Language: Northern Irish Communication Ability: Effective Beliefs That Will Affect Care: None Current Living Situation: Family Feels Safe at Home: Yes Smoking Status: Never smoker Hx Alcohol Use: No Hx Substance Use: No Review of Systems See HPI for pertinent positives & negatives. and A total of 10 systems reviewed and were otherwise negative Physical Exam Vital Signs Vital Signs - 24 hr 01/11/19 15:22 01/11/19 16:58 01/11/19 18:52 Temperature 36.5 C Temperature Source Oral Sepsis Recent Fever Within 48 Hours No Sepsis New/Unexplained Change in Mental Status No Sepsis Action Taken by Nursing No Action Required Pulse Rate 108 H Pulse Rate [Apical] 77 75 Pulse Rhythm [Apical] Regular Regular Pulse Strength [Apical] Normal Normal Respiratory Rate 18 20 18 Respiratory Effort / Characteristics Non-Labored Non-Labored Spontaneous Non-Labored Spontaneous Respiratory Depth Normal Normal Normal Blood Pressure 130/83 Blood Pressure [Right Arm] 122/79 116/80 Blood Pressure Mean 98 Blood Pressure Mean [Right Arm] 93 92 Blood Pressure Position [Right Arm] Sitting Pulse Oximetry 99 98 98 Oxygen Delivery Method Room Air Room Air Room Air GENERAL: Patient is in no acute distress. HEENT: No acute trauma, normocephalic atraumatic, mucous membranes are dry, no nasal congestion, no scleral icterus. NECK: No stridor, no adenopathy, no meningismus, trachea is midline. LUNGS: Clear to auscultation bilaterally, no wheeze, no rhonchi, breath sounds equal. HEART: Without murmurs gallops or rubs, regular rate and rhythm. ABDOMEN: Soft, bowel sounds positive, no hernias, no peritonitis. Moderately tender to RLQ and pelvis. EXTREMITIES: No cyanosis or edema, full range of motion of all the joints without pain or difficulty, no signs for acute trauma. NEUROLOGIC: Oriented x 3, no acute motor or sensory deficits, no focal weakness. SKIN: No rash, no jaundice, no diaphoresis. Course 1531: Past medical records reviewed. The patient was evaluated in room B6, and a complete history and physical examination were performed. 1745: I reevaluated the patient. I updated the patient on her labs and imaging results. I discussed the plan of admission and she agrees. 175: I reviewed the patient's case with Camille Ordonez PA-C. She will evaluate the patient for further management. Administered Medications Ioversol (Optiray 320 100ml) 94 ml IV ONCE PRN PRN Reason: Interaction Checking Stop: 01/15/19 17:11 Last Admin: 01/11/19 17:12 Dose: 94 ml Documented by: [id number] Morphine Sulfate (Morphine Sulfate) 4 mg IV Q15M PRN PRN Reason: Pain Stop: 01/25/19 15:37 Last Admin: 01/11/19 18:58 Dose: 4 mg Documented by: [id number] Admin: 01/11/19 17:02 Dose: 4 mg Documented by: [id number] Admin: 01/11/19 15:54 Dose: 4 mg Documented by: [id number] Discontinued Medications Sodium Chloride (Nss 1000ml) 1,000 mls @ 999 mls/hr IV .Q1H1M DEYSI Stop: 01/11/19 16:45 Last Infusion: 01/11/19 18:45 Dose: 0 mls/hr Documented by: [id number] Admin: 01/11/19 15:53 Dose: 999 mls/hr Documented by: [id number] Ondansetron HCl (Zofran) 4 mg IV NOW STA Stop: 01/11/19 15:39 Last Admin: 01/11/19 15:54 Dose: 4 mg Documented by: [id number] Medical Decision Making Differential Diagnosis Differential Diagnosis: Pyelonephritis, UTI, Crohn's flare-up, diverticulitis, appendicitis, ovarian cyst, dehydration, electrolyte imbalance, and hernia. Medical Records Attestation: I reviewed the patient's medical records. Home Medications Current Medication List: was personally reviewed by me Laboratory Data Attestation: I reviewed the patient's lab results. Result diagrams: 01/11/19 15:45 01/11/19 15:45 Lab Results 01/11/19 01/11/19 01/11/19 Range/Units 15:45 15:45 15:45 WBC 8.16 (4.8-10.8) K/uL RBC 4.44 (4.2-5.4) M/uL Hgb 13.2 (12.0-16.0) g/dL Hct 37.3 (37-47) % MCV 84.0 (80-100) fL MCH 29.7 (25-34) pg MCHC 35.4 (32-36) g/dL RDW Std Deviation 40.7 (36.4-46.3) fL RDW Coeff of Kervin 13.4 (11.5-14.5) % Plt Count 251 (130-400) K/uL MPV 11.0 H (7.4-10.4) fL Immature Gran % (Auto) 0.1 % Neut % (Auto) 68.0 % Lymph % (Auto) 24.5 % [place] % (Auto) 5.8 % Eos % (Auto) 1.1 % Baso % (Auto) 0.5 % Immature Gran # (Auto) 0.01 (0.00-0.02) K/uL Neut # (Auto) 5.55 (1.4-6.5) K/uL Lymph # (Auto) 2.00 (1.2-3.4) K/uL [place] # (Auto) 0.47 (0.11-0.59) K/uL Eos # (Auto) 0.09 (0-0.5) K/uL Baso # (Auto) 0.04 (0-0.2) K/uL Sodium 141 (136-145) mmol/L Potassium 3.1 L (3.5-5.1) mmol/L Chloride 111 H (98-107) mmol/L Carbon Dioxide 24 (21-32) mmol/L Anion Gap 7.0 (3-11) BUN 11 (7-18) mg/dl Creatinine 0.77 (0.6-1.2) mg/dl Est Cr Clr Drug Dosing 91.1 ml/min Est GFR ( Amer) 120.1 Est GFR (Non-Af Amer) 103.6 BUN/Creatinine Ratio 14.6 (10-20) Glucose 93 (70-99) mg/dl Calcium 9.4 (8.5-10.1) mg/dl Total Bilirubin 0.7 (0.2-1) mg/dl AST 13 L (15-37) U/L ALT 16 (12-78) U/L Alkaline Phosphatase 85 (45-117) U/L Total Protein 8.5 H (6.4-8.2) gm/dl Albumin 4.2 (3.4-5.0) gm/dl Globulin 4.3 H (2.5-4.0) gm/dl Albumin/Globulin Ratio 1.0 (0.9-2) Lipase 257 (73-393) U/L HCG, Qual Negative (Negative) Urine Color Urine Appearance (Clear) Urine pH (4.5-7.5) Ur Specific [place] (1.000-1.030) Urine Protein (Negative) Urine Glucose (UA) (Negative) Urine Ketones (Negative) Urine Blood (Negative) Urine Nitrite (Negative) Urine Bilirubin (Negative) Urine Urobilinogen (Negative) Ur Leukocyte Esterase (Negative) Urine WBC (Auto) (0-5) /hpf Urine RBC (Auto) (0-4) /hpf U Hyaline Cast (Auto) (0-5) /lpf U Epithel Cells (Auto) (0-5) /lpf Urine Bacteria (Auto) (Negative) 01/11/19 Range/Units 15:45 WBC (4.8-10.8) K/uL RBC (4.2-5.4) M/uL Hgb (12.0-16.0) g/dL Hct (37-47) % MCV (80-100) fL MCH (25-34) pg MCHC (32-36) g/dL RDW Std Deviation (36.4-46.3) fL RDW Coeff of Kervin (11.5-14.5) % Plt Count (130-400) K/uL MPV (7.4-10.4) fL Immature Gran % (Auto) % Neut % (Auto) % Lymph % (Auto) % [place] % (Auto) % Eos % (Auto) % Baso % (Auto) % Immature Gran # (Auto) (0.00-0.02) K/uL Neut # (Auto) (1.4-6.5) K/uL Lymph # (Auto) (1.2-3.4) K/uL Hamilton # (Auto) (0.11-0.59) K/uL Eos # (Auto) (0-0.5) K/uL Baso # (Auto) (0-0.2) K/uL Sodium (136-145) mmol/L Potassium (3.5-5.1) mmol/L Chloride (98-107) mmol/L Carbon Dioxide (21-32) mmol/L Anion Gap (3-11) BUN (7-18) mg/dl Creatinine (0.6-1.2) mg/dl Est Cr Clr Drug Dosing ml/min Est GFR ( Amer) Est GFR (Non-Af Amer) BUN/Creatinine Ratio (10-20) Glucose (70-99) mg/dl Calcium (8.5-10.1) mg/dl Total Bilirubin (0.2-1) mg/dl AST (15-37) U/L ALT (12-78) U/L Alkaline Phosphatase (45-117) U/L Total Protein (6.4-8.2) gm/dl Albumin (3.4-5.0) gm/dl Globulin (2.5-4.0) gm/dl Albumin/Globulin Ratio (0.9-2) Lipase (73-393) U/L HCG, Qual (Negative) Urine Color [place] Urine Appearance Cloudy H (Clear) Urine pH 5.0 (4.5-7.5) Ur Specific Bradford 1.023 (1.000-1.030) Urine Protein 1+ H (Negative) Urine Glucose (UA) Negative (Negative) Urine Ketones 1+ H (Negative) Urine Blood 3+ H (Negative) Urine Nitrite Negative (Negative) Urine Bilirubin Negative (Negative) Urine Urobilinogen Negative (Negative) Ur Leukocyte Esterase 1+ H (Negative) Urine WBC (Auto) 5-10 H (0-5) /hpf Urine RBC (Auto) >30 H (0-4) /hpf U Hyaline Cast (Auto) 1-5 (0-5) /lpf U Epithel Cells (Auto) >30 H (0-5) /lpf Urine Bacteria (Auto) Negative (Negative) Imaging Data Radiologist's Impression: Radiology results as stated below per my review and the radiologist's interpretation: ABDOMEN AND PELVIS CT WITH IV CONTRAST CT DOSE: 592.94 mGycm HISTORY: Acute nausea with right lower quadrant abdominal pain. History of inflammatory bowel disease right sided pain, nausea, h/o chrons, poss appy TECHNIQUE: Multiaxial CT images of the abdomen and pelvis were performed following the use of intravenous contrast. A dose lowering technique was utilized adhering to the principles of ALARA. COMPARISON STUDY: CT abdomen and pelvis 06/15/2018. FINDINGS: Artifact is noted secondary to positioning of the patient's upper extremities. Lung bases are generally clear. There is no pneumatosis or pneumoperitoneum. The imaged inferior cardiac chambers appear unremarkable. Prior cholecystectomy. Mild dilation of the common bile duct is likely postsurgical. Suggestion of an indeterminate 3 mm cystic focus of the pancreatic head. Pancreas is otherwise unremarkable. Spleen is mildly enlarged. Liver and adrenal glands appear normal. Cortical scarring noted about the interpolar left kidney. Renal cysts are noted measuring up to 1.2 cm. Portion morphology of the kidneys redemonstrated. There is unchanged right greater than left bilateral urothelial enhancement about the renal pelves and proximal ureters. No renal or ureteral calculi or Dr. uropathy identified. Partial distention of the urinary bladder. Suggestion of nabothian cysts. Uterus and adnexa are otherwise unremarkable. Aorta appears unremarkable. Duplicated IVC. No adenopathy. There is no bowel obstruction. Multiple scattered nondilated air and fluid- filled loops of small bowel with air-fluid levels. There is mild nonspecific wall thickening noted throughout the majority of the colon with partial distention extending from the hepatic flexure through the rectum. The terminal ileum appears unremarkable. The appendix appears noninflamed. There is no ascites. Minimal stranding is noted about the descending colon and proximal sigmoid. Mild scarring noted about the periumbilical subcutaneous tissues. Bones appear to be intact. IMPRESSION: 1. Mild wall thickening about the colon extending from the hepatic flexure through the rectum. Mild pericolonic inflammation is noted about the distal descending colon and sigmoid. Findings are suggestive of a nonspecific colitis, likely infectious or inflammatory. 2. No bowel obstruction, pneumatosis or pneumoperitoneum. 3. Normal appendix. 4. Scattered small bowel air-fluid levels throughout the abdomen. These findings may be physiologic. A mild enteritis or ileus could appear similarly. 5. Prior cholecystectomy. 6. 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 Correlate with urinalysis. Electronically signed by: Vasu Castro M.D. 01/11/2019 5:36 PM Blood Pressure Blood Pressure Findings: Normal blood pressure Blood Pressure Disposition: further management by hospitalist MDM Narrative There is no leukocytosis or concerning anemia. No significant electrolyte abnormality, kidney failure or hepatitis. There is no pancreatitis. testing is negative. Urinalysis shows some contamination and hematuria, no obvious signs of infection. Abdominal and pelvis CT suggests a colitis, the appendix was normal, there was no true bowel obstruction, no free air. On exam, the patient was not toxic or febrile. She did appear dehydrated. She was tender in the right lower quadrant. The patient received IV saline for hydration. She was given IV Zofran and IV morphine. She does feel improved. Patient has failed outpatient treatment for this issue. This is her third visit to a provider for similar symptoms. She initially had pain on the left lower side now she has pain on the right lower side. She carries a history of Crohn's disease and is on chronic Crohn's meds. She has lost weight, she seemed dehydrated. Her pain is not controlled, she is vomiting. She did not improve with antibiotics as an outpatient. I spoke to case management, I talked at length with the patient. I do think a hospital stay is warranted for further workup and care. The on-call hospitalist was consulted. Impression & Plan Lower abdominal pain, Dehydration, Weight loss, Failure of outpatient treatment, Colitis Discharge Plan Visit Data Chief Complaint: Flank Pain Stated Complaint: LOWER RIGHT SIDE AND BACK PAIN ED Provider: Alex Sarah Discharge Problem: Lower abdominal pain, Dehydration, Weight loss, Failure of outpatient treatment, Colitis Patient Disposition: Being Evaluated by Hospitalist Forms Stand Alone Forms: My [facility] [employer] Prescriptions Prescriptions: No Action albuterol sulfate [Ventolin HFA] 90 mcg/actuation Hfa Aerosol Inhaler 2 puff INHALATION Q6H PRN (Reason: Shortness Of Breath Or Wheezing) RF: 0 mercaptopurine 50 mg tablet 75 mg PO DAILY RF: 0 ondansetron 8 mg tablet,disintegrating 8 mg translingual Q6 PRN (Reason: Nausea) RF: 0 hyoscyamine sulfate 0.125 mg tablet 0.25 mg PO TID PRN (Reason: Abdominal Pain) RF: 0 tramadol 50 mg Tablet 50 mg PO Q6H PRN (Reason: Pain) RF: 0 cephalexin 500 mg Capsule 500 mg PO TID RF: 0 Remicade 100 mg Recon Soln 100 mg IV .EVERY 6 WEEKS RF: 0 Referrals Referrals: Evaristo Charles MD [Primary Care Provider] - The scribe's documentation has been prepared under my direction and personally reviewed by me in its entirety. I confirm that the note above accurately reflects all work, treatment, procedures, and medical decision making performed by me.
[2019-01-11 16:12] LABS: Appearance Urine Cloudy (Clear); Bacteria Urine Automated Negative (Negative); Blood Urine 3+ (Negative); Color Urine Orange; Epithelial Cell Urine Auto >30 /lpf (0-5); Glucose Urine UA Negative (Negative); Ketones Urine 1+ (Negative); Leukocyte Esterase Urine 1+ (Negative); Nitrite Urine Negative (Negative); Protein Urine 1+ (Negative); RBC Urine Automated >30 /hpf (0-4); Specific Gravity Urine 1.023 (1.000-1.030); Urobilinogen Urine Negative (Negative)
[2019-01-11 16:14] LABS: Albumin Level 4.2 gm/dl (3.4-5.0); BUN Creatinine Ratio 14.6 (10-20); Calcium 9.4 mg/dl (8.5-10.1); Creatinine Clr Calc Pharmacy 91.1 ml/min; Est GFR (African American) 120.1; Est GFR (Non-African American) 103.6; Potassium 3.1 mmol/L (3.5-5.1)
[2019-01-11 16:15] LABS: Bilirubin Urine Negative (Negative); Ictotest Urine Negative (Negative)
[2019-01-11 16:17] LABS: Bilirubin,Total 0.7 mg/dl (0.2-1); Globulin 4.3 gm/dl (2.5-4.0); Total Protein 8.5 gm/dl (6.4-8.2)
[2019-01-11 16:22] LABS: Pregnancy Test, Serum Negative (Negative)
[2019-01-11] MEDS ORDERED: IOVERSOL 100ml IV PRN (17:12)
--- NOTE | 2019-01-11 17:38 | CT Scan Report ---
ABDOMEN AND PELVIS CT WITH IV CONTRAST CT DOSE: 592.94 mGycm HISTORY: Acute nausea with right lower quadrant abdominal pain. History of inflammatory bowel disease right sided pain, nausea, h/o chrons, poss appy TECHNIQUE: Multiaxial CT images of the abdomen and pelvis were performed following the use of intrave nous contrast. A dose lowering technique was utilized adhering to the principles of ALARA. COMPARISON STUDY: CT abdomen and pelvis 06/15/2018. FINDINGS: Artifact is noted secondary to positioning of the patient's upper extremities. Lung bases are general ly clear. There is no pneumatosis or pneumoperitoneum. The imaged inferior cardiac chambers appear un remarkable. Prior cholecystectomy. Mild dilation of the common bile duct is likely postsurgical. Suggestion of an indeterminate 3 mm cystic focus of the pancreatic head. Pancreas is otherwise unremarkable. Spleen i s mildly enlarged. Liver and adrenal glands appear normal. Cortical scarring noted about the interpol ar left kidney. Renal cysts are noted measuring up to 1.2 cm. Portion morphology of the kidneys redem onstrated. There is unchanged right greater than left bilateral urothelial enhancement about the levar l pelves and proximal ureters. No renal or ureteral calculi or Dr. uropathy identified. Partial diste ntion of the urinary bladder. Suggestion of nabothian cysts. Uterus and adnexa are otherwise unremark able. Aorta appears unremarkable. Duplicated IVC. No adenopathy. There is no bowel obstruction. Multiple scattered nondilated air and fluid-filled loops of small tevin l with air-fluid levels. There is mild nonspecific wall thickening noted throughout the majority of t he colon with partial distention extending from the hepatic flexure through the rectum. The terminal ileum appears unremarkable. The appendix appears noninflamed. There is no ascites. Minimal stranding is noted about the descending colon and proximal sigmoid. Mild scarring noted about the periumbilical subcutaneous tissues. Bones appear to be intact. IMPRESSION: 1. Mild wall thickening about the colon extending from the hepatic flexure through the rectum. Mild p ericolonic inflammation is noted about the distal descending colon and sigmoid. Findings are suggesti ve of a nonspecific colitis, likely infectious or inflammatory. 2. No bowel obstruction, pneumatosis or pneumoperitoneum. 3. Normal appendix. 4. Scattered small bowel air-fluid levels throughout the abdomen. These findings may be physiologic. A mild enteritis or ileus could appear similarly. 5. Prior cholecystectomy. 6. 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 Correlate with u rinalysis. Electronically signed by: Vasu Castro M.D. 01/11/2019 5:36 PM
--- NOTE | 2019-01-11 18:32 | History & Physical Report ---
Date of Service January 11, 2019 Assessment & Plan (1) Colitis: Colitis -unclear of etiology at this time -CT Abdomen 1. Mild wall thickening about the colon extending from the hepatic flexure through the rectum. Mild pericolonic inflammation is noted about the distal descending colon and sigmoid. Findings are suggestive of a nonspecific colitis, likely infectious or inflammatory. 2. No bowel obstruction, pneumatosis or pneumoperitoneum. 3. Normal appendix. 4. Scattered small bowel air-fluid levels throughout the abdomen. These findings may be physiologic. A mild enteritis or ileus could appear similarly. 5. Prior cholecystectomy. 6. 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 -because patient was on oral antibiotic as outpatient for 2 days for possible urinary tract infection, C.diffcile test should be sent -will also send stool culture and FOBT -if C.difficile is rule out, can consider starting of IV Ciprofloxacin and IV Flagyl -given patient has history of Crohn's disease, this might be Crohn's flare, will continue patient's home Crohn's medication will consult gastroenterology service -continue prn tramadol for abdominal pain, prn acetaminophen Diarrhea and dehydration -give IV fluids Hypokalemia from GI loss -serum potassium 3.1 -will give IV and and oral supplements DVT ppx: SCDs, ambulate Full Code Status Family mom [phone] History of Present Illness Chief Complaint: abdominal pain and diarrhea Primary Care Provider: Evaristo Charles MD This is a 28 year old Female with Crohn's disease who was seen in the emergency room on 01/07/19 for low back pain and left quadrant monika. Patient's workup at that time was generally unremarkable with 1+ bacteria in the urine and ultrasound of horse shoe kidney but was discharged from emergency room with omnicef antibiotic in case of urinary tract infection or pyelonephritis. Patient reports since that time, she may have been taking oral antibiotics for 2 days. She reports on this presentation to the emergency [facility] on 01/11/19 that she has been having more diarrhea and this time the pain is of right lower quadrant. Urinalysis is negative and CT abdomen did not find evidence for any urinary tract obstructions. CT abdomen remarkable for Mild wall thickening about the colon extending from the hepatic flexure through the rectum. Mild pericolonic inflammation is noted about the distal descending colon and sigmoid. Findings are suggestive of a nonspecific colitis Patient on review of systems denies fever. reports poor oral intake but no vomiting. denies blood in the diarrhea. denies chest pain. denies shortness of breath. no problems with urination. denies headache or lightheadedness. all other review of systems were negative Allergies: denies Past Surgical History: history of , history of gallbladder removed Family History: mother with kidney stones Allergies Allergy/AdvReac Type Severity Reaction Status Date / Time No Known Allergies Allergy ` Verified 01/11/19 15:52 Home Medications Home Medications Medication Instructions Recorded Confirmed Type albuterol sulfate [Ventolin HFA] 2 puff INHALATION Q6H PRN 06/15/18 01/11/19 History Remicade 100 mg IV .EVERY 6 WEEKS 11/13/18 01/11/19 History hyoscyamine sulfate 0.25 mg PO TID PRN 01/07/19 01/11/19 History mercaptopurine 75 mg PO DAILY 01/07/19 01/11/19 History ondansetron 8 mg TRANSLINGUAL Q6 PRN 01/07/19 01/11/19 History cephalexin 500 mg PO TID 01/11/19 01/11/19 History tramadol 50 mg PO Q6H PRN 01/11/19 01/11/19 History Past Med/Surg History Medical History Depression (Chronic) Asthma (Chronic) USED RESCUE INHALER LAST "A COUPLE MONTHS" Crohns disease (Chronic) Anxiety Crohn's disease GERD (gastroesophageal reflux disease) Headache HX IBS (irritable bowel syndrome) Surgical History History of cholecystectomy (Resolved) History of colonoscopy (Resolved) History of colposcopy (Resolved) History of (Resolved) History of adenoidectomy History of tonsillectomy History of tooth extraction Family History Grandmother Kidney stone Social History Preferred Language: Guatemalan Communication Ability: Effective Beliefs That Will Affect Care: None Current Living Situation: Family Feels Safe at Home: Yes Smoking Status: Never smoker Hx Alcohol Use: No Hx Substance Use: No Review of Systems All systems reviewed & are unremarkable except as noted in HPI & below Physical Exam Vital Signs (Past 24 Hours): Last Vital Signs Temp 36.5 C 01/11/19 15:22 Pulse 77 01/11/19 16:58 Resp 20 01/11/19 16:58 BP 122/79 01/11/19 16:58 Pulse Ox 98 01/11/19 16:58 Constitutional: WD/WN, vitals as above Eyes: PERRL, conjunctivae normal, anicteric sclerae EOM intact bilaterally ENMT: external ear and nose normal, oropharynx normal Neck: trachea midline, no thyromegaly normal visual inspection Respiratory: normal respiratory effort, lungs clear to auscultation Cardiovascular: RRR, no murmur, no edema Gastrointestinal (Abdomen): soft, bowel sounds present, tenderness on right lower quadrant Musculoskeletal: no cyanosis or clubbing, extremities motor strength 5/5 Head/Neck/Chest: normocephalic and head atraumatic Neurologic: PERRL, EOMI, accommodation nl, no face palsy, no dysarthria CN's II-XI intact bilaterally Psychiatric: A+Ox3, euthymic affect
[2019-01-11] MEDS ORDERED: ALBUTEROL HFA 8 GM INHALER INH PRN (19:53)
[2019-01-11] MEDS ORDERED: ACETAMINOPHEN 325 MG TAB PO PRN (19:53)
[2019-01-11] MEDS ORDERED: HYOSCYAMINE SULFATE 0.125 MG TAB PO PRN (19:53)
[2019-01-11] MEDS ORDERED: POTASSIUM CHLORIDE 20 MEQ TABCR PO STA (19:53)
[2019-01-11] MEDS ORDERED: NSS + 20MEQ KCL 20 MEQ/1,000 ML BAG IV SCH (20:30)
[2019-01-11] MEDS ORDERED: MoRPHine SULFATE 4 MG/ML 1 ML CARP\\VIAL IV STA (21:31)
[2019-01-11] MEDS: ONDANSETRON INJ 2 MG/ML 2 ML VIAL IV PRN (21:44)
[2019-01-12] MEDS: TRAMADOL HCL 50 MG TABLET PO PRN ×2 (05:36→12:44)
[2019-01-12 06:08] LABS: Hemoglobin 11.4 g/dL (12.0-16.0); Mean Corpuscular Hgb Conc 34.5 g/dL (32-36); Mean Corpuscular Volume 86.4 fL (80-100); Mean Platelet Volume 11.1 fL (7.4-10.4); Platelet Count 215 K/uL (130-400); RDW Coefficient of Variation 13.7 % (11.5-14.5); RDW Standard Deviation 43.3 fL (36.4-46.3); Red Blood Count 3.82 M/uL (4.2-5.4); White Blood Count 6.17 K/uL (4.8-10.8)
[2019-01-12 06:26] LABS: BUN Creatinine Ratio 14.4 (10-20); Creatinine Clr Calc Pharmacy 101.7 ml/min; Est GFR (African American) 135.4; Est GFR (Non-African American) 116.8; Potassium 3.5 mmol/L (3.5-5.1)
[2019-01-12] MEDS ORDERED: POTASSIUM CHLORIDE 20 MEQ TABCR PO STA (07:49)
[2019-01-12] MEDS: MERCAPTOPURINE 50 MG TAB PO SCH (08:21)
[2019-01-12] MEDS: SODIUM CHLORIDE 0.9% 1000ML 1,000 ML IV SCH ×2 (08:22→21:46)
[2019-01-12] MEDS ORDERED: SODIUM CHLORIDE 0.9% 1000ML 1,000 ML IV SCH (09:00)
--- NOTE | 2019-01-12 09:28 | History & Physical Report ---
Date of Service January 12, 2019 Assessment & Plan (1) Crohn's disease: Patient with a history of inflammatory bowel disease presenting with abdominal discomfort and alteration of bowel habits. Given her long history of inflammatory bowel disease perhaps it would be reasonable to start her on low- dose prednisone at 20 mg/day. I would also suggest continued therapy for the suspected pyelonephritis as suggested on imaging studies and by urinalysis. She will be followed by Dr. Yeager upon his return tomorrow will determine if endoscopic evaluation is needed. Recommendations Continue broad-spectrum antibiotics Begin prednisone 20 mg/day Please call with any questions or concerns History of Present Illness Chief Complaint: Abdominal pain Primary Care Provider: Evaristo Charles MD The patient is a 28-year-old female with a long history of inflammatory bowel disease. She is typically managed by Dr. Yeager with the [facility]. He has been maintained on both 6-MP in addition to Remicade over several years which is resulted in long-term remission. She last had a colonoscopy and upper endoscopy several months ago which were thought to be within normal limits. She presented to the emergency room yesterday after an evaluation at an outpatient facility for persistent abdominal discomfort and alteration of her bowel habits. She reports having loose to liquid stools several times a day associate with some abdominal discomfort. Upon admission the bowel habits actually improved although she was able to have a small bowel movement this morning culture results are pending. Eyes having hematochezia, nausea or vomiting. Allergies Allergy/AdvReac Type Severity Reaction Status Date / Time No Known Allergies Allergy ` Verified 01/11/19 15:52 Home Medications Home Medications Medication Instructions Recorded Confirmed Type albuterol sulfate [Ventolin HFA] 2 puff INHALATION Q6H PRN 06/15/18 01/11/19 History Remicade 100 mg IV .EVERY 6 WEEKS 11/13/18 01/11/19 History hyoscyamine sulfate 0.25 mg PO TID PRN 01/07/19 01/11/19 History mercaptopurine 75 mg PO DAILY 01/07/19 01/11/19 History ondansetron 8 mg TRANSLINGUAL Q6 PRN 01/07/19 01/11/19 History cephalexin 500 mg PO TID 01/11/19 01/11/19 History tramadol 50 mg PO Q6H PRN 01/11/19 01/11/19 History Past Med/Surg History Medical History Depression (Chronic) Asthma (Chronic) USED RESCUE INHALER LAST "A COUPLE MONTHS" Crohns disease (Chronic) Anxiety Crohn's disease GERD (gastroesophageal reflux disease) Headache HX IBS (irritable bowel syndrome) Surgical History History of cholecystectomy (Resolved) History of colonoscopy (Resolved) History of colposcopy (Resolved) History of (Resolved) History of adenoidectomy History of tonsillectomy History of tooth extraction Family History Grandmother Kidney stone Social History Preferred Language: Cambodian Communication Ability: Effective Bulldozer Operator Required: No Beliefs That Will Affect Care: None Current Living Situation: Family Other Information That Helps Us Care for You: No Feels Safe at Home: Yes Safety Concerns: Feels Safe At This Time Smoking Status: Never smoker Hx Alcohol Use: No Hx Substance Use: No Review of Systems Constitutional: no sweats and no malaise Eyes: no diplopia Ear, Nose, Mouth, Throat: no foul smell and no facial pain Respiratory: no hemoptysis Cardiovascular: no chest pain with activity and no dyspnea at rest Gastrointestinal: + change in stools; no bloating, no nausea, no hematemesis, no fecal incontinence and no melena Genitourinary (Female): no urinary frequency and no urinary incontinence Musculoskeletal: no radicular pain Neurologic: no paralysis Psychiatric: no hopelessness and no change in appetite Endocrine: no polydipsia and no polyphagia Hematologic / Lymphatic: no easy bleeding and no coagulopathy Physical Exam Vital Signs (Past 24 Hours): Last Vital Signs Temp 36.7 C 01/12/19 07:01 Pulse 82 01/12/19 07:01 Resp 18 01/12/19 07:01 BP 104/65 01/12/19 07:01 Pulse Ox 97 01/12/19 07:01 Constitutional: well developed; not ill appearing Eyes: PERRL, conjunctivae normal, anicteric sclerae Neck: trachea midline, no thyromegaly Cardiovascular: Rate/Rhythm: regular rate and regular rhythm Gastrointestinal (Abdomen): normal bowel sounds, soft, nontender, no hepatosplenomegaly Skin: no rashes, warm and dry Results & Data Laboratory Results Laboratory Results - last 24 hr 01/11/19 01/11/19 01/11/19 15:45 15:45 15:45 WBC 8.16 RBC 4.44 Hgb 13.2 Hct 37.3 MCV 84.0 MCH 29.7 MCHC 35.4 RDW Std Deviation 40.7 RDW Coeff of Kervin 13.4 Plt Count 251 MPV 11.0 H Immature Gran % (Auto) 0.1 Neut % (Auto) 68.0 Lymph % (Auto) 24.5 [place] % (Auto) 5.8 Eos % (Auto) 1.1 Baso % (Auto) 0.5 Immature Gran # (Auto) 0.01 Neut # (Auto) 5.55 Lymph # (Auto) 2.00 [place] # (Auto) 0.47 Eos # (Auto) 0.09 Baso # (Auto) 0.04 Sodium 141 Potassium 3.1 L Chloride 111 H Carbon Dioxide 24 Anion Gap 7.0 BUN 11 Creatinine 0.77 Est Cr Clr Drug Dosing 91.1 Est GFR ( Amer) 120.1 Est GFR (Non-Af Amer) 103.6 BUN/Creatinine Ratio 14.6 Glucose 93 Calcium 9.4 Total Bilirubin 0.7 AST 13 L ALT 16 Alkaline Phosphatase 85 Total Protein 8.5 H Albumin 4.2 Globulin 4.3 H Albumin/Globulin Ratio 1.0 Lipase 257 HCG, Qual Negative Urine Color Urine Appearance Urine pH Ur Specific [place] Urine Protein Urine Glucose (UA) Urine Ketones Urine Blood Urine Nitrite Urine Bilirubin Urine Urobilinogen Ur Leukocyte Esterase Urine WBC (Auto) Urine RBC (Auto) U Hyaline Cast (Auto) U Epithel Cells (Auto) Urine Bacteria (Auto) Stool Occult Bld Scrn Stl C. diff Tox B Gene 01/11/19 01/12/19 01/12/19 15:45 05:33 05:33 WBC 6.17 RBC 3.82 L Hgb 11.4 L Hct 33.0 L MCV 86.4 MCH 29.8 MCHC 34.5 RDW Std Deviation 43.3 RDW Coeff of Kervin 13.7 Plt Count 215 MPV 11.1 H Immature Gran % (Auto) Neut % (Auto) Lymph % (Auto) [place] % (Auto) Eos % (Auto) Baso % (Auto) Immature Gran # (Auto) Neut # (Auto) Lymph # (Auto) [place] # (Auto) Eos # (Auto) Baso # (Auto) Sodium 143 Potassium 3.5 Chloride 113 H Carbon Dioxide 23 Anion Gap 7.0 BUN 10 Creatinine 0.69 Est Cr Clr Drug Dosing 101.7 Est GFR ( Amer) 135.4 Est GFR (Non-Af Amer) 116.8 BUN/Creatinine Ratio 14.4 Glucose 91 Calcium 8.0 L Total Bilirubin AST ALT Alkaline Phosphatase Total Protein Albumin Globulin Albumin/Globulin Ratio Lipase HCG, Qual Urine Color [place] Urine Appearance Cloudy H Urine pH 5.0 Ur Specific [place] 1.023 Urine Protein 1+ H Urine Glucose (UA) Negative Urine Ketones 1+ H Urine Blood 3+ H Urine Nitrite Negative Urine Bilirubin Negative Urine Urobilinogen Negative Ur Leukocyte Esterase 1+ H Urine WBC (Auto) 5-10 H Urine RBC (Auto) >30 H U Hyaline Cast (Auto) 1-5 U Epithel Cells (Auto) >30 H Urine Bacteria (Auto) Negative Stool Occult Bld Scrn Stl C. diff Tox B Gene 01/12/19 01/12/19 07:31 07:31 WBC RBC Hgb Hct MCV MCH MCHC RDW Std Deviation RDW Coeff of Kevrin Plt Count MPV Immature Gran % (Auto) Neut % (Auto) Lymph % (Auto) [place] % (Auto) Eos % (Auto) Baso % (Auto) Immature Gran # (Auto) Neut # (Auto) Lymph # (Auto) [place] # (Auto) Eos # (Auto) Baso # (Auto) Sodium Potassium Chloride Carbon Dioxide Anion Gap BUN Creatinine Est Cr Clr Drug Dosing Est GFR ( Amer) Est GFR (Non-Af Amer) BUN/Creatinine Ratio Glucose Calcium Total Bilirubin AST ALT Alkaline Phosphatase Total Protein Albumin Globulin Albumin/Globulin Ratio Lipase HCG, Qual Urine Color Urine Appearance Urine pH Ur Specific [place] Urine Protein Urine Glucose (UA) Urine Ketones Urine Blood Urine Nitrite Urine Bilirubin Urine Urobilinogen Ur Leukocyte Esterase Urine WBC (Auto) Urine RBC (Auto) U Hyaline Cast (Auto) U Epithel Cells (Auto) Urine Bacteria (Auto) Stool Occult Bld Scrn Negative Stl C. diff Tox B Gene Negative Cdiff Gene Diagnostic Findings ABDOMEN AND PELVIS CT WITH IV CONTRAST CT DOSE: 592.94 mGycm HISTORY: Acute nausea with right lower quadrant abdominal pain. History of inflammatory bowel disease right sided pain, nausea, h/o chrons, poss appy TECHNIQUE: Multiaxial CT images of the abdomen and pelvis were performed following the use of intravenous contrast. A dose lowering technique was utilized adhering to the principles of ALARA. COMPARISON STUDY: CT abdomen and pelvis 06/15/2018. FINDINGS: Artifact is noted secondary to positioning of the patient's upper extremities. Lung bases are generally clear. There is no pneumatosis or pneumoperitoneum. The imaged inferior cardiac chambers appear unremarkable. Prior cholecystectomy. Mild dilation of the common bile duct is likely postsurgical. Suggestion of an indeterminate 3 mm cystic focus of the pancreatic head. Pancreas is otherwise unremarkable. Spleen is mildly enlarged. Liver and adrenal glands appear normal. Cortical scarring noted about the interpolar left kidney. Renal cysts are noted measuring up to 1.2 cm. Portion morphology of the kidneys redemonstrated. There is unchanged right greater than left bilateral urothelial enhancement about the renal pelves and proximal ureters. No renal or ureteral calculi or Dr. uropathy identified. Partial distention of the urinary bladder. Suggestion of nabothian cysts. Uterus and adnexa are otherwise unremarkable. Aorta appears unremarkable. Duplicated IVC. No adenopathy. There is no bowel obstruction. Multiple scattered nondilated air and fluid- filled loops of small bowel with air-fluid levels. There is mild nonspecific wall thickening noted throughout the majority of the colon with partial distention extending from the hepatic flexure through the rectum. The terminal ileum appears unremarkable. The appendix appears noninflamed. There is no asc ites. Minimal stranding is noted about the descending colon and proximal sigmoid. Mild scarring noted about the periumbilical subcutaneous tissues. Bones appear to be intact. IMPRESSION: 1. Mild wall thickening about the colon extending from the hepatic flexure through the rectum. Mild pericolonic inflammation is noted about the distal descending colon and sigmoid. Findings are suggestive of a nonspecific colitis, likely infectious or inflammatory. 2. No bowel obstruction, pneumatosis or pneumoperitoneum. 3. Normal appendix. 4. Scattered small bowel air-fluid levels throughout the abdomen. These findings may be physiologic. A mild enteritis or ileus could appear similarly. 5. Prior cholecystectomy. 6. 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 Correlate with urinalysis. (1) Crohn's disease Digestive disease complication type: without complication Gastrointestinal tract location: unspecified location Qualified Code(s): K50.90 - Crohn's disease, unspecified, without complications
[2019-01-12] MEDS: MoRPHine SULFATE 2 MG/ML CARP IV PRN ×2 (09:55→18:39)
--- NOTE | 2019-01-12 10:21 | Hospitalist Progress Note ---
Date of Service January 12, 2019 Assessment & Plan (1) Colitis: Colitis -unclear of etiology at this time -CT Abdomen 1. Mild wall thickening about the colon extending from the hepatic flexure through the rectum. Mild pericolonic inflammation is noted about the distal descending colon and sigmoid. Findings are suggestive of a nonspecific colitis, likely infectious or inflammatory. 2. No bowel obstruction, pneumatosis or pneumoperitoneum. 3. Normal appendix. 4. Scattered small bowel air-fluid levels throughout the abdomen. These findings may be physiologic. A mild enteritis or ileus could appear similarly. 5. Prior cholecystectomy. 6. 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 -because patient was on oral antibiotic as outpatient for 2 days for possible urinary tract infection, C.diffcile test was sent -C.difficile is negative and will start can consider starting of IV Ciprofloxacin and IV Flagyl -send stool culture pending -FOBT negative -given patient has history of Crohn's disease, this might be Crohn's flare, will continue patient's home Crohn's medication or mercaptopurine 75 mg daily, (patient takes remicade 100 mg IV q6 weeks as outpatient and reports she last had colonoscopy from Joann Yeager in November 2018) will start prednisone [address] Rolon from [facility] gastroenterology service saw initial consultation on 01/12/19 and reports that Joann Yeager will continue to follow the patient on 01/13/19 will continue clear liquid diet for now and keep NPO after midnight in case any need for GI procedures -continue prn tramadol and prn morphine for abdominal pain, prn acetaminophen on review of previous ED presentation 01/07/19 imaging and urine studies of 1 + bacteria and negative urine studies on this admission with normal CT abdomen of urinary tract There is no indication that patient ever had a Pyelonephritis recently Diarrhea and dehydration -give IV fluids and replete electrolytes Hypokalemia from GI loss -serum potassium 3.1 on admission and after initial IV and and oral supplements, serum potassium improved to 3.5 - give additional potassium supplements DVT ppx: SCDs, ambulate Full Code Status Family mom [phone] Subjective Patient did not have more bowel movements after ED presentation on 01/11/19. Made bowel movements on 01/12/19 with stool studies sent. Then reports multiple episodes of diarrhea. Yesterday night also had vomiting x 1. No vomiting today. Afebrile. Normal vital signs. Continue to have abdominal pain around right lower quadrant. no chest pain. no shortness of breath Physical Exam Vital Signs (Past 24 Hours): Last Vital Signs Temp 36.7 C 01/12/19 07:01 Pulse 82 01/12/19 07:01 Resp 18 01/12/19 07:01 BP 104/65 01/12/19 07:01 Pulse Ox 97 01/12/19 07:01 Constitutional: WD/WN, vitals as above Eyes: PERRL, conjunctivae normal, anicteric sclerae EOM intact bilaterally ENMT: external ear and nose normal, oropharynx normal Neck: trachea midline, no thyromegaly normal visual inspection Respiratory: normal respiratory effort, lungs clear to auscultation Cardiovascular: RRR, no murmur, no edema Gastrointestinal (Abdomen): Inspection/Auscultation: normal bowel sounds Percussion/Palpation: abdomen soft patient continues to report pain of right lower quadrant but no guarding on palpation Musculoskeletal: no cyanosis or clubbing, extremities motor strength 5/5 Head/Neck/Chest: normocephalic and head atraumatic Neurologic: PERRL, EOMI, accommodation nl, no face palsy, no dysarthria CN's II-XI intact bilaterally Psychiatric: A+Ox3, euthymic affect
[2019-01-12] MEDS: metroNIDAZOLE 500 MG/100 ML BAG IV SCH ×2 (10:28→20:16)
[2019-01-12] MEDS: CIPROFLOXACIN 400 MG/200 ML BAG IV SCH ×2 (10:28→21:47)
[2019-01-12] MEDS: predniSONE 20 MG TAB PO SCH (11:10)
[2019-01-12] MEDS ORDERED: KETOROLAC TROMETHAMINE 15 MG/ML VIAL IV PRN (13:12)
[2019-01-12] MEDS: OXYCODONE HCL IR 5 MG TAB (IMMEDIATE RELEASE) PO PRN ×2 (16:07→22:31)
[2019-01-12] MEDS: ONDANSETRON INJ 2 MG/ML 2 ML VIAL IV PRN (22:32)
[2019-01-13] MEDS: metroNIDAZOLE 500 MG/100 ML BAG IV SCH ×2 (02:45→12:03)
[2019-01-13] MEDS: ONDANSETRON INJ 2 MG/ML 2 ML VIAL IV PRN ×3 (05:41→19:08)
[2019-01-13] MEDS: OXYCODONE HCL IR 5 MG TAB (IMMEDIATE RELEASE) PO PRN ×3 (05:42→19:08)
[2019-01-13 06:25] LABS: BUN Creatinine Ratio 8.4 (10-20); Creatinine Clr Calc Pharmacy 106.3 ml/min; Est GFR (African American) 137.4; Est GFR (Non-African American) 118.5; Potassium 3.4 mmol/L (3.5-5.1)
[2019-01-13] MEDS ORDERED: POTASSIUM CHLORIDE 20 MEQ TABCR PO STA (07:34)
[2019-01-13] MEDS: MERCAPTOPURINE 50 MG TAB PO SCH (07:44)
[2019-01-13] MEDS: predniSONE 20 MG TAB PO SCH ×2 (07:44→20:25)
[2019-01-13] MEDS: SODIUM CHLORIDE 0.9% 1000ML 1,000 ML IV SCH ×2 (07:44→20:24)
[2019-01-13] MEDS: MoRPHine SULFATE 2 MG/ML CARP IV PRN ×2 (07:51→16:30)
--- NOTE | 2019-01-13 09:16 | Gastroenterology Progress Note ---
Date of Service January 13, 2019 Assessment & Plan (1) Crohn's disease: Patient is presently on IV steroids. She is now reported her diarrhea is improving and her pain is predominantly right sided now. CT scan was performed and indicated left sided inflammation, however the study was without po contrast. 1) Continue Prednisone, but increase to 20 mg BID. 2) Check CRP. 3) Advance to light diet as patient feels she is capable of eating at this point. 4) Supportive care per primary team. Thank you for allowing us to participate in the care of this patient. If you should have any further questions or concerns, do not hesitate to contact us. Present on Admission?: Yes Supervising Physician Co-Signing Physician Notes Agree with ROSALINA Cat as above Abd: Soft, Tender RLQ, ND, +BS Continue current therapy Continue supportive care Subjective Patient is a 28 yo female who is hospitalized with abdominal pain and diarrhea. She has a history of Crohn's Disease. She last had a colonoscopy in November 2018 that was unremarkable for disease activity as well as a normal EGD. She has had a work-up recently due to worsening symptoms, including a normal fecal calprotectin and normal trough/antibody testing in October 2018. She is currently managed on 75 mg 6MP daily along with max dose Remicade 10 mg/kg every 6 weeks. She was seen by Dr. Rolon of [facility] GI this admission. She was started on Prednisone 20 mg daily. She reports that her diarrhea has slowed down since that. She had a CT scan that indicated mild wall thickening of the hepatic flexure to the rectum and mild pericolonic inflammation noted about the distal descending colon and sigmoid. She had negative C diff testing, but other stool studies are pending. Her reported abdominal pain is right sided. It has improved some since admission. Her last Remicade infusion was 12/26/2018. Constitutional: no fever Respiratory: no cough and no dyspnea Cardiovascular: no chest pain Gastrointestinal: + abdominal pain (right sided) diarrhea Neurologic: + headache(s) Physical Exam Vital Signs (Past 24 Hours): Last Vital Signs Temp 37.0 C 01/13/19 08:18 Pulse 80 01/13/19 08:18 Resp 20 01/13/19 08:18 BP 107/71 01/13/19 08:18 Pulse Ox 96 01/13/19 08:18 Constitutional: WD/WN, vitals as above Respiratory: normal respiratory effort, lungs clear to auscultation Cardiovascular: RRR, no murmur, no edema Gastrointestinal (Abdomen): Percussion/Palpation: + abdomen tender and abdomen soft Skin: no rashes, warm and dry (1) Crohn's disease Digestive disease complication type: without complication Gastrointestinal tract location: unspecified location Qualified Code(s): K50.90 - Crohn's disease, unspecified, without complications
[2019-01-13] MEDS: CIPROFLOXACIN 400 MG/200 ML BAG IV SCH (12:03)
--- NOTE | 2019-01-13 13:53 | Hospitalist Progress Note ---
Date of Service January 13, 2019 Assessment & Plan (1) Colitis: Colitis Diarrhea, Right Lower quadrant abdominal pain -History of Crohn's disease ( had a colonoscopy in November 2018 that was unremarkable for disease activity as well as a normal EGD. She has had a work-up recently due to worsening symptoms, including a normal fecal calprotectin and normal trough/antibody testing in October 2018. She is currently managed on 75 mg 6MP daily along with max dose Remicade 10 mg/kg every 6 weeks as per [facility] gastroenterology) -admission CT Abdomen 1. Mild wall thickening about the colon extending from the hepatic flexure through the rectum. Mild pericolonic inflammation is noted about the distal descending colon and sigmoid. Findings are suggestive of a nonspecific colitis, likely infectious or inflammatory. 2. No bowel obstruction, pneumatosis or pneumoperitoneum. 3. Normal appendix. 4. Scattered small bowel air-fluid levels throughout the abdomen. These findings may be physiologic. A mild enteritis or ileus could appear similarly. 5. Prior cholecystectomy. 6. 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 -FOBT negative -because patient was on oral antibiotic as outpatient for 2 days for possible urinary tract infection, C.difficile test was sent -C.difficile is negative, was started on on IV Ciprofloxacin and IV Flagyl on 01/12/19, but stool culture returns as negative on 01/13/19 and will discontinue the antibiotics -patient was started on prednisone 20 mg on 01/13/19 in case of Crohn's flare and was increased from 20 mg BID as per [facility] gastroenterology -continue patient's home Crohn's medication or mercaptopurine 75 mg daily (have been on max dose Remicade 10 mg/kg every 6 weeks as per [facility] gastroenterology) -abdominal pain control (right lower quadrant pain): continue prn oxycodone and prn morphine for abdominal pain, and prn acetaminophen on review of previous ED presentation 01/07/19 imaging and urine studies of 1 + bacteria and negative urine studies on this admission with normal CT abdomen of urinary tract There is no indication that patient ever had a Pyelonephritis recently Diarrhea and dehydration -give IV fluids and replete electrolytes Hypokalemia from GI loss -serum potassium 3.1 on admission -give oral and IV potassium as needed to maintain serum potassium above 3.5 DVT ppx: SCDs, ambulate Full Code Status mother [phone] Subjective Continue to have abdominal pain around right lower quadrant. no chest pain. no shortness of breath. Reports 11 episodes of diarrhea yesterday. Reports 3 more episodes of diarrhea today Physical Exam Vital Signs (Past 24 Hours): Last Vital Signs Temp 37.0 C 01/13/19 08:18 Pulse 80 01/13/19 08:18 Resp 20 01/13/19 08:18 BP 107/71 01/13/19 08:18 Pulse Ox 96 01/13/19 08:18 Constitutional: WD/WN, vitals as above Eyes: PERRL, conjunctivae normal, anicteric sclerae EOM intact bilaterally ENMT: external ear and nose normal, oropharynx normal Neck: trachea midline, no thyromegaly normal visual inspection Respiratory: normal respiratory effort, lungs clear to auscultation Cardiovascular: RRR, no murmur, no edema Gastrointestinal (Abdomen): Inspection/Auscultation: normal bowel sounds Percussion/Palpation: abdomen soft Musculoskeletal: no cyanosis or clubbing, extremities motor strength 5/5 Head/Neck/Chest: normocephalic and head atraumatic Neurologic: PERRL, EOMI, accommodation nl, no face palsy, no dysarthria CN's II-XI intact bilaterally Psychiatric: A+Ox3, euthymic affect
[2019-01-14] MEDS: MoRPHine SULFATE 2 MG/ML CARP IV PRN ×3 (00:49→20:40)
[2019-01-14] MEDS: ONDANSETRON INJ 2 MG/ML 2 ML VIAL IV PRN ×2 (01:35→17:36)
[2019-01-14] MEDS: OXYCODONE HCL IR 5 MG TAB (IMMEDIATE RELEASE) PO PRN ×3 (03:10→17:36)
[2019-01-14] MEDS: SODIUM CHLORIDE 0.9% 1000ML 1,000 ML IV SCH (06:04)
[2019-01-14] MEDS ORDERED: Nursing to Pharmacy Communication ONE (07:38)
[2019-01-14 08:11] LABS: Basophils # (auto) 0.02 K/uL (0-0.2); Basophils % (auto) 0.3 %; Hematocrit (blood only) 33.5 % (37-47); Hemoglobin 11.7 g/dL (12.0-16.0); Immature Granulocytes # (auto) 0.01 K/uL (0.00-0.02); Immature Granulocytes % (auto) 0.1 %; Lymphocytes # (auto) 2.42 K/uL (1.2-3.4); Mean Corpuscular Volume 85.9 fL (80-100); Mean Platelet Volume 10.8 fL (7.4-10.4); Monocytes % (auto) 5.1 %; Neutrophils # (auto) 4.95 K/uL (1.4-6.5); Neutrophils % (auto) 63.5 %; Platelet Count 242 K/uL (130-400); RDW Coefficient of Variation 13.4 % (11.5-14.5)
[2019-01-14 08:19] LABS: Mean Corpuscular Hgb Conc 34.9 g/dL (32-36)
[2019-01-14 08:41] LABS: Albumin Level 3.5 gm/dl (3.4-5.0); BUN Creatinine Ratio 7.3 (10-20); Bilirubin,Total 0.6 mg/dl (0.2-1); Calcium 8.4 mg/dl (8.5-10.1); Creatinine Clr Calc Pharmacy 98.8 ml/min; Est GFR (African American) 132.5; Est GFR (Non-African American) 114.3; Globulin 3.6 gm/dl (2.5-4.0); Potassium 3.6 mmol/L (3.5-5.1); Total Protein 7.1 gm/dl (6.4-8.2)
--- NOTE | 2019-01-14 09:34 | Gastroenterology Progress Note ---
Date of Service January 14, 2019 Assessment & Plan (1) Crohn's disease: Patient is a 28 yo female with a history of Crohn's Disease who is hospitalized with RLQ abdominal pain and frequent bowel movements. The patient has a normal CRP, normal stool studies as an inpatient, normal Infliximab trough and antibody levels, recent normal fecal calprotectin, and an unremarkable colonoscopy [address] during this admission was without po contrast and suggested possible left sided colitis. Her pain is right sided. She is transitioning to the maximum dosage of Remicade as an outpatient. She takes 6MP 75 mg daily. 1) Continue Prednisone. Would recommend discharge on a taper starting at 40 mg daily and decreasing by 5 mg every week for a total of 8 weeks. Recommend utilizing a daily calcium & vitamin D supplement while on corticosteroid therapy. 2) Plan for outpatient MRE to assess the small bowel. If unremarkable, symptoms not likely to be related to her IBD. If abnormal, she is already scheduled to begin her new Remicade interval of 10 mg/kg q 6 weeks and will be discharged on a steroid taper. Our office will contact her to arrange the MRE. 3) Okay for discharge from a GI standpoint. Thank you for allowing us to participate in the care of this patient. If you should have any further questions or concerns, do not hesitate to contact us. Supervising Physician Co-Signing Physician Notes Agree with ROSALINA Cat as above Abd: Soft, NT, ND, +BS Continue current therapy Advance diet as tolerated Subjective Patient is a 28 yo female with Crohn's Disease currently hospitalized with abdominal pain and diarrhea. She reports improvement of her pain. She reports 10 bowel movements in the past 24 hours. She would like to go home. Constitutional: no fever and no chills Respiratory: no cough and no dyspnea Cardiovascular: no chest pain Gastrointestinal: + abdominal pain Musculoskeletal: no back pain Physical Exam Vital Signs (Past 24 Hours): Last Vital Signs Temp 36.5 C 01/14/19 07:45 Pulse 59 L 01/14/19 07:45 Resp 20 01/14/19 07:45 BP 105/69 01/14/19 07:45 Pulse Ox 98 01/14/19 07:45 Constitutional: WD/WN, vitals as above Respiratory: normal respiratory effort, lungs clear to auscultation Cardiovascular: RRR, no murmur, no edema Gastrointestinal (Abdomen): Percussion/Palpation: + abdomen tender and abdomen soft Skin: no rashes, warm and dry (1) Crohn's disease Digestive disease complication type: without complication Gastrointestinal tract location: unspecified location Qualified Code(s): K50.90 - Crohn's disease, unspecified, without complications
[2019-01-14] MEDS: predniSONE 20 MG TAB PO SCH ×2 (10:00→20:40)
[2019-01-14] MEDS: MERCAPTOPURINE 50 MG TAB PO SCH (10:00)
[2019-01-14] MEDS ORDERED: POTASSIUM CHLORIDE 20 MEQ TABCR PO STA (10:08)
--- NOTE | 2019-01-14 14:52 | Hospitalist Progress Note ---
Date of Service January 14, 2019 Assessment & Plan (1) Colitis: Colitis Diarrhea, Right Lower quadrant abdominal pain -History of Crohn's disease ( had a colonoscopy in November 2018 that was unremarkable for disease activity as well as a normal EGD. She has had a work-up recently due to worsening symptoms, including a normal fecal calprotectin and normal trough/antibody testing in October 2018. She is currently managed on 75 mg 6MP daily along with max dose Remicade 10 mg/kg every 6 weeks as per [facility] gastroenterology) -admission CT Abdomen 1. Mild wall thickening about the colon extending from the hepatic flexure through the rectum. Mild pericolonic inflammation is noted about the distal descending colon and sigmoid. Findings are suggestive of a nonspecific colitis, likely infectious or inflammatory. 2. No bowel obstruction, pneumatosis or pneumoperitoneum. 3. Normal appendix. 4. Scattered small bowel air-fluid levels throughout the abdomen. These findings may be physiologic. A mild enteritis or ileus could appear similarly. 5. Prior cholecystectomy. 6. 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 -FOBT negative -because patient was on oral antibiotic as outpatient for 2 days for possible urinary tract infection, C.difficile test was sent -C.difficile is negative, was started on on IV Ciprofloxacin and IV Flagyl on 01/12/19, but stool culture returns as negative on 01/13/19 and will discontinue the antibiotics -patient was started on prednisone 20 mg on 01/13/19 in case of Crohn's flare and was increased from 20 mg BID as per [facility] gastroenterology -continue patient's home Crohn's medication or mercaptopurine 75 mg daily (have been on max dose Remicade 10 mg/kg every 6 weeks as per [facility] gastroenterology) -abdominal pain control (right lower quadrant pain): continue prn oxycodone and prn morphine for abdominal pain, and prn acetaminophen on review of previous ED presentation 01/07/19 imaging and urine studies of 1 + bacteria and negative urine studies on this admission with normal CT abdomen of urinary tract There is no indication that patient ever had a Pyelonephritis recently Diarrhea and dehydration -has had IV fluids since admission up until today on 01/14/19 when decision made to hold off IV fluids and observe renal function as less episodes of diarrhea -will check renal function tomorrow AM Hypokalemia from GI loss -serum potassium 3.1 on admission -give oral and IV potassium as needed to maintain serum potassium above 3.5 -serum potassium 3.6 today and got additional oral potassium to maintain serum levels with losses from diarrhea DVT ppx: SCDs, ambulate Full Code Status mother [phone] disposition: keep in hospital until diarrhea improves further and/or abdominal pain improvements Subjective Patient reported 10 + diarrhea yesterday. today a total of 6 episodes so far. but diarrhea less in volume as per patient. reports abdominal pain still present. no chest pain. no shortness of breath. able to eat. denies dsyuria Physical Exam Vital Signs (Past 24 Hours): Last Vital Signs Temp 36.5 C 01/14/19 07:45 Pulse 59 L 01/14/19 07:45 Resp 20 01/14/19 07:45 BP 105/69 01/14/19 07:45 Pulse Ox 98 01/14/19 07:45 Constitutional: WD/WN, vitals as above Eyes: PERRL, conjunctivae normal, anicteric sclerae EOM intact bilaterally ENMT: external ear and nose normal, oropharynx normal Neck: trachea midline, no thyromegaly normal visual inspection Respiratory: normal respiratory effort, lungs clear to auscultation Cardiovascular: RRR, no murmur, no edema Gastrointestinal (Abdomen): Inspection/Auscultation: normal bowel sounds Percussion/Palpation: abdomen soft Musculoskeletal: no cyanosis or clubbing, extremities motor strength 5/5 He ad/Neck/Chest: normocephalic and head atraumatic Neurologic: PERRL, EOMI, accommodation nl, no face palsy, no dysarthria CN's II-XI intact bilaterally Psychiatric: A+Ox3, euthymic affect
[2019-01-15] MEDS: ONDANSETRON INJ 2 MG/ML 2 ML VIAL IV PRN ×2 (00:13→06:45)
[2019-01-15] MEDS: OXYCODONE HCL IR 5 MG TAB (IMMEDIATE RELEASE) PO PRN ×3 (00:13→13:38)
[2019-01-15] MEDS: MoRPHine SULFATE 2 MG/ML CARP IV PRN (04:42)
[2019-01-15] MEDS: predniSONE 20 MG TAB PO SCH (08:09)
[2019-01-15] MEDS: MERCAPTOPURINE 50 MG TAB PO SCH (08:09)
--- NOTE | 2019-01-15 13:32 | Hospitalist Progress Note ---
Date of Service January 15, 2019 Assessment & Plan (1) Colitis: Colitis H/O Crohn's Disease --CT ABD: Mild wall thickening about the colon extending from the hepatic flexure through the rectum. Mild pericolonic inflammation is noted about the distal descending colon and sigmoid. Findings are suggestive of a nonspecific colitis, likely infectious or inflammatory. No bowel obstruction, pneumatosis or pneumoperitoneum. Scattered small bowel air-fluid levels throughout the abdomen. These findings may be physiologic. A mild enteritis or ileus could appear similarly. Last colonoscopy in November 2018 that was unremarkable --Continue 6MP daily; Also on Remicade 10 mg/kg every 6 weeks --Appreciate GI Input --Continue Prednisone taper--- for total of 8 weeks as per GI --Planned for MRE as outpatient --Abd Pain and Diarrhea improved --Need FU with GI as outpatient Diarrhea and dehydration Received IV fluids Monitor Hypokalemia: Due to GI loss Replace electrolytes as needed Resolved DVT Px: SCDs, Encourage to ambulate Code Status Full Code Disposition: Plan to discharge home today Subjective Patient is seen and examined at bedside Abd pain and diarrhea much improved Denies chest pain, SOB, dizziness Offers no other complaints Prefers to be discharged home today Physical Exam Vital Signs (Past 24 Hours): Last Vital Signs Temp 36.7 C 01/15/19 07:29 Pulse 58 L 01/15/19 07:29 Resp 18 01/15/19 07:29 BP 98/61 L 01/15/19 07:29 Pulse Ox 98 01/15/19 07:29 Physical Exam: Physical Exam: Vitals signs as noted above General Appearance:Moderately built and nourished, no apparent distress Head: normocephalic, Atraumatic Eyes: normal inspection, EOMI Neck: supple, Trachea midline Respiratory/Chest: Normal breath sounds, CTA Cardiovascular: S1, S2, No murmur Abdomen/GI:Soft, mild tender--right side, Bowel sounds present Extremities/Musculoskelatal:normal inspection, no edema Neurologic/Psych:AAOX3, grossly no focal neurological deficits Skin: normal color, warm
--- NOTE | 2019-01-15 13:45 | Discharge Summary ---
Date of Service January 15, 2019 Admission HPI Per Admitting Provider The patient is a 28-year-old female with a long history of inflammatory bowel disease. She is typically managed by Dr. Yeager with the [facility] group. He has been maintained on both 6-MP in addition to Remicade over several years which is resulted in long-term remission. She last had a colonoscopy and upper endoscopy several months ago which were thought to be within normal limits. She presented to the emergency room yesterday after an evaluation at an outpatient facility for persistent abdominal discomfort and alteration of her bowel habits. She reports having loose to liquid stools several times a day associate with some abdominal discomfort. Upon admission the bowel habits actually improved although she was able to have a small bowel movement this morning culture results are pending. Eyes having hematochezia, nausea or vomiting. Admission Exam Per Admitting Provider Constitutional: WD/WN, vitals as above Eyes: PERRL, conjunctivae normal, anicteric sclerae EOM intact bilaterally ENMT: external ear and nose normal, oropharynx normal Neck: trachea midline, no thyromegaly normal visual inspection Respiratory: normal respiratory effort, lungs clear to auscultation Cardiovascular: RRR, no murmur, no edema Gastrointestinal (Abdomen): soft, bowel sounds present, tenderness on right lower quadrant Musculoskeletal: no cyanosis or clubbing, extremities motor strength 5/5 Head/Neck/Chest: normocephalic and head atraumatic Neurologic: PERRL, EOMI, accommodation nl, no face palsy, no dysarthria CN's II-XI intact bilaterally Psychiatric: A+Ox3, euthymic affect Principal Diagnosis Discharge Information Discharge Diagnosis Colitis Discharge Goals Decrease discomfort,Improve disease control, Improve function Discharge Activity Limitations Resume your previous activity Discharge Data Allergies Allergy/AdvReac Type Severity Reaction Status Date / Time No Known Allergies Allergy ` Verified 01/11/19 15:52 Consultations 01/11/19 17:48 ED Decision to Admit Stat 01/11/19 19:53 Consult Gastroenterology Routine Procedures Performed CT ABD: 1. Mild wall thickening about the colon extending from the hepatic flexure through the rectum. Mild pericolonic inflammation is noted about the distal descending colon and sigmoid. Findings are suggestive of a nonspecific colitis, likely infectious or inflammatory. 2. No bowel obstruction, pneumatosis or pneumoperitoneum. 3. Normal appendix. 4. Scattered small bowel air-fluid levels throughout the abdomen. These findings may be physiologic. A mild enteritis or ileus could appear similarly. 5. Prior cholecystectomy. 6. 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 Correlate with urinalysis. Ordered Studies 01/11/19 15:38 CT abd pelvis IV con only Stat Hospital Course (1) Colitis: Colitis H/O Crohn's Disease --CT ABD: Mild wall thickening about the colon extending from the hepatic flexure through the rectum. Mild pericolonic inflammation is noted about the distal descending colon and sigmoid. Findings are suggestive of a nonspecific colitis, likely infectious or inflammatory. No bowel obstruction, pneumatosis or pneumoperitoneum. Scattered small bowel air-fluid levels throughout the abdomen. These findings may be physiologic. A mild enteritis or ileus could appear similarly. Last colonoscopy in November 2018 that was unremarkable --Continue 6MP daily; Also on Remicade 10 mg/kg every 6 weeks --Appreciate GI Input --Continue Prednisone taper--- for total of 8 weeks as per GI --Planned for MRE as outpatient --Abd Pain and Diarrhea improved --Need FU with GI as outpatient Diarrhea and dehydration Received IV fluids Monitor Hypokalemia: Due to GI loss Replace electrolytes as needed Resolved DVT Px: SCDs, Encourage to ambulate Code Status Full Code Disposition: Plan to discharge home today Total Time Total Time Spent Total Time Spent (In Minutes): 38 minutes Total Time Includes: Examination of the Patient, Discharge Planning, Medication Reconciliation, Communication With Other Providers and Other Discharge Plan Discharge Items Patient Disposition: Home - Self-Care Reason For Visit: COLITIS Discharge Diagnosis: Colitis Discharge Goals: Decrease discomfort, Improve disease control and Improve function Activity: Resume your previous activity Exercise/Sports: Gradually increase as tolerated Non-emergency contact: Primary Care Provider and Funeral Car Driver Call non-emergency contact if: you have any medication questions, your symptoms worsen, your pain is not controlled, your pain is worsening, your pain is unusual for you, your pain is concerning for you and you have a fever Follow-up/Referrals: Evaristo Charles MD [Primary Care Provider] - Diet: Regular Addtl Provider Instructions: Follow up with your PCP on January 16, 2019 at 10:55 AM Follow up with your Funeral Car Driver in 2 weeks Complete the Prednisone course as prescribed Seek immediate medical attention if your symptoms reoccur or worsen Prednisone Taper Course: Start taking Prednisone 40mg for 5 days, then 35mg for 7 days, then 30mg for 7 days, then 25mg for 7 days, then 20mg for 7 days, then 15mg for 7 days, then 10mg for 7 days, then 5mg for 7 days and STOP Prescriptions: New prednisone 10 mg tablet 10 mg PO UD Qty: 104 RF: 0 prednisone 5 mg tablet 5 mg PO UD Qty: 28 RF: 0 Continued albuterol sulfate [Ventolin HFA] 90 mcg/actuation Hfa Aerosol Inhaler 2 puff INHALATION Q6H PRN (Reason: Shortness Of Breath Or Wheezing) RF: 0 mercaptopurine 50 mg tablet 75 mg PO DAILY RF: 0 ondansetron 8 mg tablet,disintegrating 8 mg translingual Q6 PRN (Reason: Nausea) RF: 0 hyoscyamine sulfate 0.125 mg tablet 0.25 mg PO TID PRN (Reason: Abdominal Pain) RF: 0 tramadol 50 mg Tablet 50 mg PO Q6H PRN (Reason: Pain) 2 Days Qty: 6 RF: 0 Remicade 100 mg Recon Soln 100 mg IV .EVERY 6 WEEKS RF: 0 Discontinued cephalexin 500 mg Capsule 500 mg PO TID RF: 0 Stand-Alone Forms: [facility]charge Orders: Discharge Order (Routine); Ordered 01/15/19 Ordered By: Meir Bueno Admission Data Admit Date/Time: 01/13/19 14:06 Attending Provider: Meir Bueno Admit Provider: Miguel Amaral Primary Care Provider: Evaristo Charles Other Providers: Christopher Rolon ; Miguel Amaral Service: Medical Other Interventions: Discharge Summary Assessment (RN) Last Done: 01/15/19 13:46 Pending Studies at Discharge: No DC Date/Time DO NOT enter until pt leaves facility: 01/15/19 14:02
--- NOTE | 2019-01-16 12:17 | Coding Query ---
CODING QUERY To promote full compliance with coding requirements relating to patient care, provider participation is requested in all cases of hands hanger uncertainty. Please assist us with the question(s) below: Coding Question(s): The Discharge Summary documents Colitis and H/O Crohn's Disease. Please clarify below, in your clinical opinion. ( ) Colitis is unspecified and not likely related to the history of Crohn's Disease ( ) Colitis is infectious and not likely related to the history of Crohn's Disease ( ) Colitis is Crohn's Disease (X ) Other: Please Specify Colitis--Unsure currently if it is IBD/Crohn's disease Physician's Response(s): Thank you Demetra Quintanilla Principal Diagnosis: "that condition established after study, to be chiefly responsible for occasioning the admission of the patient to the hospital for care." Co-Existing Principal Diagnosis: "when two or more diagnoses equally meet the criteria for principal diagnosis as determined by the circumstances of admission, diagnostic work up, and/or therapy provided, and the Alphabetic Index, Tabular List, or another coding guideline does not provide sequencing direction, any one of the diagnoses may be sequenced first." "When the physician has documented what appears to be a current diagnosis in the body of the record, but has not included the diagnosis in the final diagnostic statement, the physician should be asked whether the diagnosis should be added." (Source Coding [facility] 2 QTR90. p3-4) RANDY
== END 2019-01-15 14:02 | disposition home or self-care (01) | DRG 386 ==
LOC: ED 15:18 → 2W 15:18 → SUATTDRO 01-13 14:06 → 4W 01-14 01:17

== ENCOUNTER 2019-03-02 21:11 | Inpatient (IN) ==
[2019-03-02] MEDS ORDERED: KETOROLAC TROMETHAMINE 15 MG/ML VIAL IV STA (21:40)
[2019-03-02] MEDS ORDERED: ONDANSETRON INJ 2 MG/ML 2 ML VIAL IV STA (21:40)
[2019-03-02] MEDS ORDERED: SODIUM CHLORIDE 0.9% 1000ML 1,000 ML IV ONE ×2 (21:40→23:30)
[2019-03-02] MEDS ORDERED: MoRPHine SULFATE 4 MG/ML 1 ML CARP\\VIAL IV STA ×2 (21:40→23:23)
[2019-03-02 22:09] LABS: Appearance Urine Cloudy (Clear); Bacteria Urine Automated 4+ (Negative); Bilirubin Urine Negative (Negative); Color Urine Dark Yellow; Epithelial Cell Urine Auto >30 /lpf (0-5); Glucose Urine UA Negative (Negative); Ketones Urine Negative (Negative); Leukocyte Esterase Urine 2+ (Negative); Nitrite Urine Positive (Negative); Protein Urine 1+ (Negative); Specific Gravity Urine 1.021 (1.000-1.030); Urobilinogen Urine Negative (Negative); WBC Urine Automated >30 /hpf (0-5); pH Urine 5.5 (4.5-7.5)
[2019-03-02 22:19] LABS: Basophils # (auto) 0.02 K/uL (0-0.2); Basophils % (auto) 0.1 %; Hematocrit (blood only) 30.4 % (37-47); Immature Granulocytes # (auto) 0.03 K/uL (0.00-0.02); Immature Granulocytes % (auto) 0.2 %; Lymphocytes # (auto) 1.01 K/uL (1.2-3.4); Lymphocytes % (auto) 7.6 %; Mean Corpuscular Hgb Conc 36.2 g/dL (32-36); Mean Corpuscular Volume 82.8 fL (80-100); Monocytes # (auto) 2.54 K/uL (0.11-0.59); Neutrophils # (auto) 9.75 K/uL (1.4-6.5); Neutrophils % (auto) 73.1 %; Platelet Count 206 K/uL (130-400); RDW Coefficient of Variation 12.7 % (11.5-14.5); RDW Standard Deviation 38.6 fL (36.4-46.3); Red Blood Count 3.67 M/uL (4.2-5.4); White Blood Count 13.35 K/uL (4.8-10.8)
--- NOTE | 2019-03-02 22:20 | Emergency Department Note ---
History of Present Illness General Chief complaint: Abdominal Pain Stated complaint: BACK PAIN,LOWER PELVIC PAIN, FEVER Source: patient Mode of arrival: ambulatory Limitations: no limitations History of Present Illness Maximum Pain Intensity: 8 This patient is a 28-year-old female who presents to the emergency department complaining of right lower abdominal/pelvic pain. The patient states that she has had a sharp pain in her right lower abdomen with radiation into the back and legs for the past 4 days. She reports that she has had fevers for the past 2 days up to 103 F. She has been taking Tylenol for this. She does have nausea and vomiting, but has been taking Zofran for this. She reports she has a hi story of Crohn's and follows with Dr. Yeager of gastroenterology. She is currently on Remicade and 6-MP and has been fairly well controlled. She states that her Crohn's flareups do typically cause right-sided pain, however her pain today is different. She states the pain is worsened when she is breathing, walking or moving and rates her discomfort an 8/10. She has had a prior C- section and cholecystectomy. She denies urinary symptoms, changes in bowel movements or abnormal vaginal discharge. Home Medications Home Medications Medication Instructions Recorded Confirmed Type albuterol sulfate [Ventolin HFA] 2 puff INHALATION Q6H PRN 06/15/18 03/02/19 History Remicade 100 mg IV .EVERY 6 WEEKS 11/13/18 03/02/19 History hyoscyamine sulfate 0.25 mg PO TID PRN 01/07/19 03/02/19 History mercaptopurine 75 mg PO DAILY 01/07/19 03/02/19 History ondansetron 8 mg TRANSLINGUAL Q6 PRN 01/07/19 03/02/19 History acetaminophen [Tylenol Extra 2,000 mg PO BID PRN 03/02/19 03/02/19 History Strength] Allergies Allergy/AdvReac Type Severity Reaction Status Date / Time No Known Allergies Allergy ` Verified 03/02/19 21:47 Past Med/Surg History Medical History Depression (Chronic) Asthma (Chronic) USED RESCUE INHALER LAST "A COUPLE MONTHS" Crohns disease (Chronic) Anxiety Crohn's disease GERD (gastroesophageal reflux disease) Headache HX IBS (irritable bowel syndrome) Surgical History History of cholecystectomy (Resolved) History of colonoscopy (Resolved) History of colposcopy (Resolved) H/O cystoscopy History of (Resolved) History of adenoidectomy History of tonsillectomy History of tooth extraction Social History Preferred Language: Kosovan Communication Ability: Effective Beliefs That Will Affect Care: None Current Living Situation: Family current occupation: [employer] Other Information That Helps Us Care for You: No Feels Safe at Home: Yes Safety Concerns: Feels Safe At This Time Smoking Status: Never smoker Do You Dip or Chew Tobacco: No Second Hand Exposure: No Hx Alcohol Use: No Hx Substance Use: No Review of Systems A total of 10 systems reviewed and were otherwise negative Physical Exam Vital Signs Vital Signs - 24 hr 03/02/19 21:13 03/02/19 21:59 03/02/19 22:01 Temperature 38.2 C H Temperature Source Oral Sepsis Recent Fever Within 48 Hours No Sepsis Action Taken by Nursing No Action Required Pulse Rate 118 H 82 Pulse Rate [Finger] 94 H Pulse Rate from SpO2 Sensor Pulse Rhythm Regular Pulse Strength Normal Respiratory Rate 20 20 17 Respiratory Effort / Characteristics Non-Labored Spontaneous Respiratory Depth Normal Respiratory Pattern Regular Blood Pressure 128/73 101/79 Blood Pressure [Right Arm] 128/102 H Blood Pressure Mean 91 86 Blood Pressure Mean [Right Arm] 110 Blood Pressure Position Sitting Pulse Oximetry 97 98 Oxygen Delivery Method Room Air Room Air 03/02/19 22:18 03/02/19 22:20 03/02/19 22:30 Temperature Temperature Source Sepsis Recent Fever Within 48 Hours Sepsis Action Taken by Nursing Pulse Rate 84 82 83 Pulse Rate [Finger] Pulse Rate from SpO2 Sensor 87 83 Pulse Rhythm Pulse Strength Respiratory Rate 15 17 14 Respiratory Effort / Characteristics Respiratory Depth Respiratory Pattern Blood Pressure Blood Pressure [Right Arm] Blood Pressure Mean Blood Pressure Mean [Right Arm] Blood Pressure Position Pulse Oximetry 97 97 Oxygen Delivery Method 03/02/19 22:31 03/02/19 22:40 03/02/19 22:50 Temperature Temperature Source Sepsis Recent Fever Within 48 Hours Sepsis Action Taken by Nursing Pulse Rate 83 85 86 Pulse Rate [Finger] Pulse Rate from SpO2 Sensor 83 84 87 Pulse Rhythm Pulse Strength Respiratory Rate 15 16 17 Respiratory Effort / Characteristics Respiratory Depth Respiratory Pattern Blood Pressure 101/54 L Blood Pressure [Right Arm] Blood Pressure Mean 69 Blood Pressure Mean [Right Arm] Blood Pressure Position Pulse Oximetry 98 97 98 Oxygen Delivery Method 03/02/19 22:57 03/02/19 23:00 03/02/19 23:01 Temperature Temperature Source Sepsis Recent Fever Within 48 Hours Sepsis Action Taken by Nursing Pulse Rate 90 105 H Pulse Rate [Finger] 98 H Pulse Rate from SpO2 Sensor 89 104 H Pulse Rhythm Pulse Strength Respiratory Rate 17 16 16 Respiratory Effort / Characteristics Respiratory Depth Respiratory Pattern Blood Pressure 92/52 L Blood Pressure [Right Arm] 101/54 L Blood Pressure Mean 65 Blood Pressure Mean [Right Arm] 69 Blood Pressure Position Pulse Oximetry 98 97 98 Oxygen Delivery Method Room Air 03/02/19 23:35 03/02/19 23:36 03/02/19 23:39 Temperature Temperature Source Sepsis Recent Fever Within 48 Hours Sepsis Action Taken by Nursing Pulse Rate 91 H 86 Pulse Rate [Finger] 85 Pulse Rate from SpO2 Sensor 85 Pulse Rhythm Pulse Strength Respiratory Rate 14 19 Respiratory Effort / Characteristics Respiratory Depth Respiratory Pattern Blood Pressure 90/40 L Blood Pressure [Right Arm] 90/40 L Blood Pressure Mean 56 Blood Pressure Mean [Right Arm] 56 Blood Pressure Position Pulse Oximetry 97 98 Oxygen Delivery Method Room Air 03/02/19 23:40 03/02/19 23:50 03/03/19 00:00 Temperature Temperature Source Sepsis Recent Fever Within 48 Hours Sepsis Action Taken by Nursing Pulse Rate 85 84 89 Pulse Rate [Finger] Pulse Rate from SpO2 Sensor 85 84 88 Pulse Rhythm Pulse Strength Respiratory Rate 14 17 16 Respiratory Effort / Characteristics Respiratory Depth Respiratory Pattern Blood Pressure Blood Pressure [Right Arm] Blood Pressure Mean Blood Pressure Mean [Right Arm] Blood Pressure Position Pulse Oximetry 98 100 100 Oxygen Delivery Method 03/03/19 00:01 03/03/19 00:02 03/03/19 00:31 Temperature Temperature Source Sepsis Recent Fever Within 48 Hours Sepsis Action Taken by Nursing Pulse Rate 83 86 86 Pulse Rate [Finger] Pulse Rate from SpO2 Sensor 84 86 Pulse Rhythm Pulse Strength Respiratory Rate 14 15 Respiratory Effort / Characteristics Respiratory Depth Respiratory Pattern Blood Pressure 70/49 L Blood Pressure [Right Arm] Blood Pressure Mean 56 Blood Pressure Mean [Right Arm] Blood Pressure Position Pulse Oximetry 100 100 Oxygen Delivery Method 03/03/19 00:33 03/03/19 00:40 03/03/19 00:41 Temperature Temperature Source Sepsis Recent Fever Within 48 Hours Sepsis Action Taken by Nursing Pulse Rate 88 89 Pulse Rate [Finger] 102 H 90 Pulse Rate from SpO2 Sensor 89 Pulse Rhythm Pulse Strength Respiratory Rate 19 17 17 Respiratory Effort / Characteristics Respiratory Depth Respiratory Pattern Blood Pressure 93/50 L Blood Pressure [Right Arm] 93/50 L Blood Pressure Mean 64 Blood Pressure Mean [Right Arm] 64 Blood Pressure Position Pulse Oximetry 98 100 Oxygen Delivery Method Room Air Room Air 03/03/19 00:50 03/03/19 01:00 03/03/19 01:01 Temperature Temperature Source Sepsis Recent Fever Within 48 Hours Sepsis Action Taken by Nursing Pulse Rate 87 95 H 95 H Pulse Rate [Finger] Pulse Rate from SpO2 Sensor 88 95 H 95 H Pulse Rhythm Pulse Strength Respiratory Rate 16 15 17 Respiratory Effort / Characteristics Respiratory Depth Respiratory Pattern Blood Pressure 91/55 L Blood Pressure [Right Arm] Blood Pressure Mean 67 Blood Pressure Mean [Right Arm] Blood Pressure Position Pulse Oximetry 93 99 99 Oxygen Delivery Method 03/03/19 01:10 03/03/19 01:20 03/03/19 01:30 Temperature Temperature Source Sepsis Recent Fever Within 48 Hours Sepsis Action Taken by Nursing Pulse Rate 105 H 113 H 93 H Pulse Rate [Finger] Pulse Rate from SpO2 Sensor 106 H 112 H 93 H Pulse Rhythm Pulse Strength Respiratory Rate 20 21 24 Respiratory Effort / Characteristics Respiratory Depth Respiratory Pattern Blood Pressure Blood Pressure [Right Arm] Blood Pressure Mean Blood Pressure Mean [Right Arm] Blood Pressure Position Pulse Oximetry 100 99 99 Oxygen Delivery Method 03/03/19 01:31 03/03/19 01:40 03/03/19 01:50 Temperature Temperature Source Sepsis Recent Fever Within 48 Hours Sepsis Action Taken by Nursing Pulse Rate 95 H 102 H 107 H Pulse Rate [Finger] Pulse Rate from SpO2 Sensor 95 H 102 H Pulse Rhythm Pulse Strength Respiratory Rate 24 27 H 21 Respiratory Effort / Characteristics Respiratory Depth Respiratory Pattern Blood Pressure 94/55 L Blood Pressure [Right Arm] Blood Pressure Mean 68 Blood Pressure Mean [Right Arm] Blood Pressure Position Pulse Oximetry 100 99 Oxygen Delivery Method 03/03/19 01:55 03/03/19 02:00 03/03/19 02:01 Temperature Temperature Source Sepsis Recent Fever Within 48 Hours Sepsis Action Taken by Nursing Pulse Rate 99 H 96 H Pulse Rate [Finger] 94 H Pulse Rate from SpO2 Sensor 99 H 100 H Pulse Rhythm Pulse Strength Respiratory Rate 17 24 15 Respiratory Effort / Characteristics Respiratory Depth Respiratory Pattern Blood Pressure 100/52 L Blood Pressure [Right Arm] 94/55 L Blood Pressure Mean 68 Blood Pressure Mean [Right Arm] 68 Blood Pressure Position Pulse Oximetry 99 98 99 Oxygen Delivery Method Room Air 03/03/19 02:10 03/03/19 02:20 03/03/19 02:30 Temperature Temperature Source Sepsis Recent Fever Within 48 Hours Sepsis Action Taken by Nursing Pulse Rate 94 H 97 H 101 H Pulse Rate [Finger] Pulse Rate from SpO2 Sensor 94 H 98 H 102 H Pulse Rhythm Pulse Strength Respiratory Rate 24 25 H 26 H Respiratory Effort / Characteristics Respiratory Depth Respiratory Pattern Blood Pressure Blood Pressure [Right Arm] Blood Pressure Mean Blood Pressure Mean [Right Arm] Blood Pressure Position Pulse Oximetry 96 96 96 Oxygen Delivery Method 03/03/19 02:31 03/03/19 02:40 03/03/19 02:44 Temperature Temperature Source Sepsis Recent Fever Within 48 Hours Sepsis Action Taken by Nursing Pulse Rate 102 H 100 H Pulse Rate [Finger] 108 H Pulse Rate from SpO2 Sensor 102 H 100 H Pulse Rhythm Pulse Strength Respiratory Rate 24 26 H 18 Respiratory Effort / Characteristics Respiratory Depth Respiratory Pattern Blood Pressure 101/66 Blood Pressure [Right Arm] 101/66 Blood Pressure Mean 77 Blood Pressure Mean [Right Arm] 77 Blood Pressure Position Pulse Oximetry 97 96 97 Oxygen Delivery Method Room Air VITALS: Vitals are noted on the nurse's note and reviewed by myself. Vital signs stable. GENERAL: This is a 28-year-old female, uncomfortable appearing, well-developed well-nourished. SKIN: The skin was without rashess. EARS: External auditory canals clear, tympanic membranes pearly forte without erythema or effusion bilaterally. EYES: Pupils equal round and reactive to light and accommodation. MOUTH: Mucous membranes moist. Tonsils are not enlarged. Pharynx without erythema or exudate. NECK: Supple without nuchal rigidity. No lymphadenopathy. HEART: Regular rate and rhythm without murmurs gallops or rubs. LUNGS: Clear to auscultation bilaterally without wheezes, rales or rhonchi. ABDOMEN: Positive bowel sounds x 4. Soft, moderate tenderness to palpation in the right lower quadrant. No guarding or rebound tenderness. NEURO: Patient was alert and oriented to person place and time. Course Reevaluation(s) Reevaluation #1: Patient was reassessed and informed of the findings. She was ordered a K rider and a dose of oral potassium. A dose of Rocephin was ordered for UTI. She is agreeable to admission. Consultations Consultation #1: Dr. Fatemeh Ordonez hospitalist Administered Medications Acetaminophen (Tylenol) 650 mg PO Q4H PRN PRN Reason: Pain or Fever Stop: 04/02/19 03:43 Last Admin: 03/03/19 11:14 Dose: 650 mg Documented by: [id number] Admin: 03/03/19 04:07 Dose: 650 mg Documented by: [id number] Enoxaparin Sodium (Lovenox) 30 mg SQ QAM [facility] Stop: 04/02/19 08:59 Last Admin: 03/03/19 09:29 Dose: 30 mg Documented by: [id number] Cefepime HCl (Maxipime) 2,000 mg in 20 mls @ 5 mls/min IV Q12H [facility]; Protocol Stop: 03/13/19 05:59 Last Admin: 03/03/19 17:01 Dose: 5 mls/min Documented by: [id number] Admin: 03/03/19 05:47 Dose: 5 mls/min Documented by: [id number] Promethazine HCl 12.5 mg/ (Sodium Chloride) 50.5 mls @ 202 mls/hr IV Q6H PRN PRN Reason: Nausea And Vomiting Stop: 04/02/19 03:43 Last Admin: 03/03/19 17:31 Dose: 202 mls/hr Documented by: [id number] Infusion: 03/03/19 11:29 Dose: 0 mls/hr Documented by: [id number] Admin: 03/03/19 11:14 Dose: 202 mls/hr Documented by: [id number] Sodium Chloride (Nss 1000ml) 1,000 mls @ 80 mls/hr IV .[id number] [facility] Stop: 04/02/19 10:14 Last Admin: 03/03/19 10:30 Dose: 80 mls/hr Documented by: [id number] Ketorolac Tromethamine (Toradol) 15 mg IV Q4H PRN PRN Reason: Pain Stop: 03/08/19 03:43 Last Admin: 03/03/19 17:00 Dose: 15 mg Documented by: [id number] Admin: 03/03/19 08:04 Dose: 15 mg Documented by: [id number] Admin: 03/03/19 03:59 Dose: 15 mg Documented by: [id number] Oxycodone/Acetaminophen (Percocet 5mg/325mg) 1 tab PO Q4H PRN PRN Reason: Pain Stop: 03/17/19 04:49 Last Admin: 03/03/19 15:39 Dose: 1 tab Documented by: [id number] Admin: 03/03/19 10:33 Dose: 1 tab Documented by: [id number] Admin: 03/03/19 05:46 Dose: 1 tab Documented by: [id number] Discontinued Medications Acetaminophen (Tylenol) 650 mg PO NOW STA Stop: 03/02/19 23:49 Last Admin: 03/03/19 02:54 Dose: Not Given Documented by: [id number] Acetaminophen (Tylenol) 650 mg PO NOW STA Stop: 03/03/19 02:23 Last Admin: 03/03/19 02:47 Dose: Not Given Documented by: [id number] Sodium Chloride (Nss 1000ml) 1,000 mls @ 999 mls/hr IV .Q1H1M ONE Stop: 03/02/19 22:40 Last Infusion: 03/02/19 23:22 Dose: 0 mls/hr Documented by: [id number] Admin: 03/02/19 22:07 Dose: 999 mls/hr Documented by: [id number] Potassium Chloride (K Ra / Wtr) 10 meq in 100 mls @ 100 mls/hr IV ONE ONE Stop: 03/02/19 23:54 Last Infusion: 03/03/19 01:19 Dose: 0 mls/hr Documented by: [id number] Admin: 03/02/19 23:37 Dose: 100 mls/hr Documented by: [id number] Ceftriaxone Sodium (Rocephin) 1,000 mg in 50 mls @ 100 mls/hr IV NOW STA Stop: 03/02/19 23:46 Last Infusion: 03/03/19 00:29 Dose: 0 mls/hr Documented by: [id number] Admin: 03/02/19 23:38 Dose: 100 mls/hr Documented by: [id number] Sodium Chloride (Nss 1000ml) 1,000 mls @ 999 mls/hr IV .Q1H1M ONE Stop: 03/03/19 00:30 Last Infusion: 03/03/19 00:29 Dose: 0 mls/hr Documented by: [id number] Admin: 03/02/19 23:40 Dose: 999 mls/hr Documented by: [id number] Potassium Chloride/Sodium Chloride (Normal Saline W/20 Meq Kcl) 20 meq in 1,000 mls @ 80 mls/hr IV .[id number] DEYSI Stop: 04/02/19 01:44 Last Infusion: 03/03/19 04:39 Dose: 0 mls/hr Documented by: [id number] Infusion: 03/03/19 03:04 Dose: 200 mls/hr Documented by: [id number] Admin: 03/03/19 01:52 Dose: 80 mls/hr Documented by: [id number] Sodium Chloride (Nss 1000ml) 1,000 mls @ 999 mls/hr IV .Q1H1M ONE Stop: 03/03/19 01:44 Last Infusion: 03/03/19 01:31 Dose: 0 mls/hr Documented by: [id number] Admin: 03/03/19 00:30 Dose: 999 mls/hr Documented by: [id number] Promethazine HCl (Phenergan) 12.5 mg in 50.5 mls @ 202 mls/hr IV NOW STA Stop: 03/03/19 00:58 Last Infusion: 03/03/19 01:30 Dose: 0 mls/hr Documented by: [id number] Admin: 03/03/19 01:12 Dose: 202 mls/hr Documented by: [id number] Acetaminophen (Ofirmev) 1,000 mg in 100 mls @ 400 mls/hr IV NOW STA Stop: 03/03/19 01:27 Last Infusion: 03/03/19 01:49 Dose: 0 mls/hr Documented by: [id number] Admin: 03/03/19 01:19 Dose: 400 mls/hr Documented by: [id number] Potassium Chloride/Sodium Chloride (Normal Saline W/20 Meq Kcl) 20 meq in 1,000 mls @ 200 mls/hr IV .Q5H ONE Stop: 03/03/19 08:02 Last Infusion: 03/03/19 09:52 Dose: 0 mls/hr Documented by: [id number] Admin: 03/03/19 04:38 Dose: 200 mls/hr Documented by: [id number] Potassium Chloride (K Ra / Wtr) 10 meq in 100 mls @ 100 mls/hr IV Q1H DEYSI Stop: 03/03/19 08:59 Last Infusion: 03/03/19 11:29 Dose: 0 mls/hr Documented by: [id number] Admin: 03/03/19 09:57 Dose: 100 mls/hr Documented by: [id number] Infusion: 03/03/19 08:57 Dose: 100 mls/hr Documented by: [id number] Admin: 03/03/19 07:57 Dose: 100 mls/hr Documented by: [id number] Infusion: 03/03/19 07:39 Dose: 100 mls/hr Documented by: [id number] Admin: 03/03/19 06:39 Dose: 100 mls/hr Documented by: [id number] Infusion: 03/03/19 06:39 Dose: 100 mls/hr Documented by: [id number] Admin: 03/03/19 05:47 Dose: 100 mls/hr Documented by: [id number] Infusion: 03/03/19 05:47 Dose: 100 mls/hr Documented by: [id number] Admin: 03/03/19 04:53 Dose: 100 mls/hr Documented by: [id number] Ioversol (Optiray 320 100ml) 94 ml IV ONCE PRN PRN Reason: Interaction Checking Stop: 03/06/19 23:11 Last Admin: 03/02/19 23:13 Dose: 94 ml Documented by: [id number] Ketorolac Tromethamine (Toradol) 15 mg IV NOW STA Stop: 03/02/19 21:41 Last Admin: 03/02/19 22:07 Dose: 15 mg Documented by: [id number] Ketorolac Tromethamine (Toradol) 15 mg IV NOW ONE Stop: 03/03/19 04:50 Last Admin: 03/03/19 05:08 Dose: 15 mg Documented by: [id number] Morphine Sulfate (Morphine Sulfate) 4 mg IV NOW STA Stop: 03/02/19 21:41 Last Admin: 03/02/19 22:07 Dose: 4 mg Documented by: [id number] Morphine Sulfate (Morphine Sulfate) 4 mg IV NOW STA Stop: 03/02/19 23:24 Last Admin: 03/02/19 23:32 Dose: 4 mg Documented by: [id number] Ondansetron HCl (Zofran) 4 mg IV NOW STA Stop: 03/02/19 21:41 Last Admin: 03/02/19 22:07 Dose: 4 mg Documented by: [id number] Potassium Chloride (Klor-Con M20) 40 meq PO NOW STA Stop: 03/02/19 23:41 Last Admin: 03/03/19 00:25 Dose: Not Given Documented by: [id number] Potassium Chloride (Klor-Con M20) 60 meq PO NOW STA Stop: 03/02/19 23:50 Last Admin: 03/03/19 00:25 Dose: 60 meq Documented by: [id number] Potassium Chloride (Klor-Con M20) 50 meq PO NOW STA Stop: 03/03/19 02:56 Last Admin: 03/03/19 03:26 Dose: Not Given Documented by: [id number] Tramadol HCl (Ultram) 25 - 50 mg PO Q4H PRN PRN Reason: Pain Stop: 04/02/19 03:43 Last Admin: 03/03/19 03:59 Dose: 50 mg Documented by: [id number] Medical Decision Making Differential Diagnosis Differential diagnosis includes Crohn's flare, UTI, pyelonephritis, appendicitis, diverticulitis, perforated viscus, intra-abdominal abscess, PID, among others. Medical Records Attestation: I reviewed the patient's medical records. Home Medications Current Medication List: was personally reviewed by me Laboratory Data Attestation: I reviewed the patient's lab results. Result diagrams: 03/03/19 06:39 03/03/19 06:39 Lab Results 03/02/19 03/02/19 03/02/19 Range/Units 21:58 22:03 22:03 WBC 13.35 H (4.8-10.8) K/uL RBC 3.67 L (4.2-5.4) M/uL Hgb 11.0 L (12.0-16.0) g/dL Hct 30.4 L (37-47) % MCV 82.8 (80-100) fL MCH 30.0 (25-34) pg MCHC 36.2 H (32-36) g/dL RDW Std Deviation 38.6 (36.4-46.3) fL RDW Coeff of Kervin 12.7 (11.5-14.5) % Plt Count 206 (130-400) K/uL MPV 11.0 H (7.4-10.4) fL Immature Gran % (Auto) 0.2 % Neut % (Auto) 73.1 % Lymph % (Auto) 7.6 % [place] % (Auto) 19.0 % Eos % (Auto) 0.0 % Baso % (Auto) 0.1 % Immature Gran # (Auto) 0.03 H (0.00-0.02) K/uL Neut # (Auto) 9.75 H (1.4-6.5) K/uL Lymph # (Auto) 1.01 L (1.2-3.4) K/uL [place] # (Auto) 2.54 H (0.11-0.59) K/uL Eos # (Auto) 0.00 (0-0.5) K/uL Baso # (Auto) 0.02 (0-0.2) K/uL Sodium (136-145) mmol/L Potassium (3.5-5.1) mmol/L Chloride (98-107) mmol/L Carbon Dioxide (21-32) mmol/L Anion Gap (3-11) BUN (7-18) mg/dl Creatinine (0.6-1.2) mg/dl Est Cr Clr Drug Dosing ml/min Est GFR ( Amer) Est GFR (Non-Af Amer) BUN/Creatinine Ratio (10-20) Glucose (70-99) mg/dl Lactate 0.8 (0.4-2.0) mmol/L Calcium (8.5-10.1) mg/dl Magnesium (1.8-2.4) mg/dl Total Bilirubin (0.2-1) mg/dl AST (15-37) U/L ALT (12-78) U/L Alkaline Phosphatase (45-117) U/L Total Protein (6.4-8.2) gm/dl Albumin (3.4-5.0) gm/dl Globulin (2.5-4.0) gm/dl Albumin/Globulin Ratio (0.9-2) HCG, Qual (Negative) Urine Color Dark Yellow Urine Appearance Cloudy A (Clear) Urine pH 5.5 (4.5-7.5) Ur Specific [place] 1.021 (1.000-1.030) Urine Protein 1+ H (Negative) Urine Glucose (UA) Negative (Negative) Urine Ketones Negative (Negative) Urine Blood 1+ H (Negative) Urine Nitrite Positive A (Negative) Urine Bilirubin Negative (Negative) Urine Urobilinogen Negative (Negative) Ur Leukocyte Esterase 2+ H (Negative) Urine WBC (Auto) >30 H (0-5) /hpf Urine RBC (Auto) 5-10 H (0-4) /hpf U Hyaline Cast (Auto) 1-5 (0-5) /lpf U Epithel Cells (Auto) >30 H (0-5) /lpf Urine Bacteria (Auto) 4+ H (Negative) 03/02/19 03/02/19 Range/Units 22:03 22:03 WBC (4.8-10.8) K/uL RBC (4.2-5.4) M/uL Hgb (12.0-16.0) g/dL Hct (37-47) % MCV (80-100) fL MCH (25-34) pg MCHC (32-36) g/dL RDW Std Deviation (36.4-46.3) fL RDW Coeff of Kervin (11.5-14.5) % Plt Count (130-400) K/uL MPV (7.4-10.4) fL Immature Gran % (Auto) % Neut % (Auto) % Lymph % (Auto) % [place] % (Auto) % Eos % (Auto) % Baso % (Auto) % Immature Gran # (Auto) (0.00-0.02) K/uL Neut # (Auto) (1.4-6.5) K/uL Lymph # (Auto) (1.2-3.4) K/uL [place] # (Auto) (0.11-0.59) K/uL Eos # (Auto) (0-0.5) K/uL Baso # (Auto) (0-0.2) K/uL Sodium 135 L (136-145) mmol/L Potassium 2.3 L* (3.5-5.1) mmol/L Chloride 101 (98-107) mmol/L Carbon Dioxide 24 (21-32) mmol/L Anion Gap 11.0 (3-11) BUN 11 (7-18) mg/dl Creatinine 0.93 (0.6-1.2) mg/dl Est Cr Clr Drug Dosing 75.0 ml/min Est GFR ( Amer) 95.6 Est GFR (Non-Af Amer) 82.5 BUN/Creatinine Ratio 12.2 (10-20) Glucose 102 H (70-99) mg/dl Lactate (0.4-2.0) mmol/L Calcium 8.4 L (8.5-10.1) mg/dl Magnesium 1.7 L (1.8-2.4) mg/dl Total Bilirubin 1.2 H (0.2-1) mg/dl AST 17 (15-37) U/L ALT 12 (12-78) U/L Alkaline Phosphatase 81 (45-117) U/L Total Protein 8.0 (6.4-8.2) gm/dl Albumin 3.3 L (3.4-5.0) gm/dl Globulin 4.7 H (2.5-4.0) gm/dl Albumin/Globulin Ratio 0.7 L (0.9-2) HCG, Qual Negative (Negative) Urine Color Urine Appearance (Clear) Urine pH (4.5-7.5) Ur Specific [place] (1.000-1.030) Urine Protein (Negative) Urine Glucose (UA) (Negative) Urine Ketones (Negative) Urine Blood (Negative) Urine Nitrite (Negative) Urine Bilirubin (Negative) Urine Urobilinogen (Negative) Ur Leukocyte Esterase (Negative) Urine WBC (Auto) (0-5) /hpf Urine RBC (Auto) (0-4) /hpf U Hyaline Cast (Auto) (0-5) /lpf U Epithel Cells (Auto) (0-5) /lpf Urine Bacteria (Auto) (Negative) Imaging Data Attestation: I personally reviewed and interpreted this imaging study as follows: Radiologist's Impression: CT ABDOMEN & PELVIS With Contrast: Fluid levels in the colon without obstruction or wall thickening, likely mild intestinal illness Normal appendix Radiologist: Keanu Xiao MD Blood Pressure Blood Pressure Findings: Low blood pressure Blood Pressure Disposition: further management by hospitalist HELEN Narrative The patient is a 28-year-old female who presents today complaining of abdominal pain and fevers. Labs revealed a leukocytosis of 13,000, mild anemia. Patient was found to have hypokalemia with potassium of 2.3. Potassium was repleted. Urinalysis was suggestive of infection. She was ordered [address] scan showed no acute findings. Patient's fever and abdominal/flank pain is most likely secondary to a pyelonephritis. She will be admitted for IV antibiotics as well as for her hypokalemia. She was given multiple doses of pain medication in the ER, including morphine, Toradol as well as IV Tylenol. She received fluid resuscitation. She remained stable throughout her stay in the emergency department. [facility]. The patient's case was discussed with Dr. Anderson, who agreed with my eval uation and treatment plan. Impression & Plan Pyelonephritis, Hypokalemia Discharge Plan Visit Data *Final* Discharge Date/Time: 03/03/19 03:24 Chief Complaint: Abdominal Pain Stated Complaint: BACK PAIN,LOWER PELVIC PAIN, FEVER Other Complaint: Back Injury/Pain ED Provider: Sherman Anderson ED Midlevel Provider: Clarisa Gutierrez Discharge Problem: Pyelonephritis, Hypokalemia Patient Disposition: Admitted As Inpatient Discharge Instructions Interventions: ED Discharge Assessment Last Done: 03/03/19 03:24
[2019-03-02 22:45] LABS: Pregnancy Test, Serum Negative (Negative)
[2019-03-02 22:53] LABS: Albumin Globulin Ratio 0.7 (0.9-2); Albumin Level 3.3 gm/dl (3.4-5.0); BUN Creatinine Ratio 12.2 (10-20); Bilirubin,Total 1.2 mg/dl (0.2-1); Calcium 8.4 mg/dl (8.5-10.1); Est GFR (African American) 95.6; Est GFR (Non-African American) 82.5; Globulin 4.7 gm/dl (2.5-4.0); Potassium 2.3 mmol/L (3.5-5.1)
[2019-03-02] MEDS ORDERED: POTASSIUM CHLORIDE / WTR 10 MEQ/100 ML PLCT IV ONE (22:55)
[2019-03-02] MEDS ORDERED: IOVERSOL 100ml IV PRN (23:12)
[2019-03-02] MEDS ORDERED: cefTRIAXone SODIUM 1,000 MG/50 ML BAG IV STA (23:17)
[2019-03-02] MEDS ORDERED: POTASSIUM CHLORIDE 20 MEQ TABCR PO STA ×2 (23:40→23:49)
[2019-03-02 23:43] LABS: Magnesium 1.7 mg/dl (1.8-2.4)
[2019-03-02] MEDS ORDERED: ACETAMINOPHEN 325 MG TAB PO STA (23:48)
[2019-03-03] MEDS ORDERED: PROMETHAZINE 12.5 MG/50.5 ML BAG IV STA (00:44)
[2019-03-03] MEDS ORDERED: SODIUM CHLORIDE 0.9% 1000ML 1,000 ML IV ONE (00:44)
[2019-03-03] MEDS ORDERED: ACETAMINOPHEN 1,000 MG/100 ML VIAL IV STA (01:13)
[2019-03-03] MEDS ORDERED: NSS + 20MEQ KCL 20 MEQ/1,000 ML BAG IV SCH (01:45)
[2019-03-03] MEDS ORDERED: ACETAMINOPHEN 325 MG TAB PO STA (02:22)
--- NOTE | 2019-03-03 02:55 | History & Physical Report ---
Date of Service March 03, 2019 Assessment & Plan (1) Sepsis: Secondary to complicated UTI Immunocompromised patient hx Crohn's disease on mercaptopurine Possible predisposition to recurrent infection by horseshoe kidney Hypokalemia secondary to illness, clinical dehydration mood disorder, stable chronic anemia baseline hemoglobin of 11 Medical telemetry Cultures, IV Cefepime Hold mercaptopurine for now May benefit from Urology consultation Re: Recurrent UTI, history horseshoe kidney Replace potassium, IVF DVT prophylaxis. Lovenox subcu Full code History of Present Illness Chief Complaint: Back pain, fever chills Primary Care Provider: Yasir Villalobos DO History obtained from patient and records. Medical history significant for Crohn's disease on mercaptopurine, mood disorder, GERD,chronic anemia baseline hemoglobin of 11. Patient confined June 2018 for right flank pain, possible pyelonephritis. 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 Recent confinement January 2019 for colitis. 4 days history of sharp lower abdominal pain going to the back. Patient somewhat constipated the last 2 days. No chest pain, no S OB. No hematuria. Some nausea, poor p.o. intake Patient noted fever chills. At the ER, patient received IV ceftriaxone for sepsis. Allergies Allergy/AdvReac Type Severity Reaction Status Date / Time No Known Allergies Allergy ` Verified 03/02/19 21:47 Home Medications Home Medications Medication Instructions Recorded Confirmed Type albuterol sulfate [Ventolin HFA] 2 puff INHALATION Q6H PRN 06/15/18 03/02/19 History Remicade 100 mg IV .EVERY 6 WEEKS 11/13/18 03/02/19 History hyoscyamine sulfate 0.25 mg PO TID PRN 01/07/19 03/02/19 History mercaptopurine 75 mg PO DAILY 01/07/19 03/02/19 History ondansetron 8 mg TRANSLINGUAL Q6 PRN 01/07/19 03/02/19 History acetaminophen [Tylenol Extra 2,000 mg PO BID PRN 03/02/19 03/02/19 History Strength] Past Med/Surg History Medical History Depression (Chronic) Asthma (Chronic) USED RESCUE INHALER LAST "A COUPLE MONTHS" Crohns disease (Chronic) Anxiety Crohn's disease GERD (gastroesophageal reflux disease) Headache HX IBS (irritable bowel syndrome) Surgical History History of cholecystectomy (Resolved) History of colonoscopy (Resolved) History of colposcopy (Resolved) H/O cystoscopy History of (Resolved) History of adenoidectomy History of tonsillectomy History of tooth extraction Social History Preferred Language: Arabic Communication Ability: Effective Beliefs That Will Affect Care: None Current Living Situation: Family current occupation: [employer] Other Information That Helps Us Care for You: No Feels Safe at Home: Yes Safety Concerns: Feels Safe At This Time Smoking Status: Never smoker Do You Dip or Chew Tobacco: No Second Hand Exposure: No Hx Alcohol Use: No Hx Substance Use: No Review of Systems Review of Systems: As per HPI, all 10 systems reviewed, all other ROS negative Physical Exam Physical Exam: GENERAL: uncomfortable, wane, no respiratory distress SKIN: Pallor , warm HEENT: [place] palpebral conjunctivae, no ptosis, dry buccal mucosa NECK : Supple, no tenderness CHEST : CTA, no tenderness HEART : Tachycardic , no obvious murmurs ABDOMEN: Some distention, hypogastric tenderness EXTREMITIES : No LE swelling/tenderness, no other conspicuous deformities noted NEUROLOGIC : Coherent, no facial asymmetry, no other gross focality Results & Data Vital Signs (Past 12 Hours) Vital Signs Temp Pulse Pulse Resp BP BP Pulse Ox 03/03/19 02:44 108 H 18 101/66 97 03/03/19 02:40 100 H 26 H 96 03/03/19 02:31 102 H 24 101/66 97 03/03/19 02:30 101 H 26 H 96 03/03/19 02:20 97 H 25 H 96 03/03/19 02:10 94 H 24 96 03/03/19 02:01 96 H 15 100/52 L 99 03/03/19 02:00 99 H 24 98 03/03/19 01:55 94 H 17 94/55 L 99 03/03/19 01:50 107 H 21 03/03/19 01:40 102 H 27 H 99 03/03/19 01:31 95 H 24 94/55 L 100 03/03/19 01:30 93 H 24 99 03/03/19 01:20 113 H 21 99 03/03/19 01:10 105 H 20 100 03/03/19 01:01 95 H 17 91/55 L 99 03/03/19 01:00 95 H 15 99 03/03/19 00:50 87 16 93 03/03/19 00:41 89 90 17 93/50 L 93/50 L 100 03/03/19 00:40 88 17 03/03/19 00:33 102 H 19 98 03/03/19 00:31 86 03/03/19 00:02 86 15 100 03/03/19 00:01 83 14 70/49 L 100 03/03/19 00:00 89 16 100 03/02/19 23:50 84 17 100 03/02/19 23:40 85 14 98 03/02/19 23:39 85 19 90/40 L 98 03/02/19 23:36 86 14 90/40 L 97 03/02/19 23:35 91 H 03/02/19 23:01 105 H 16 92/52 L 98 03/02/19 23:00 90 16 97 03/02/19 22:57 98 H 17 101/54 L 98 03/02/19 22:50 86 17 98 03/02/19 22:40 85 16 97 03/02/19 22:31 83 15 101/54 L 98 03/02/19 22:30 83 14 97 03/02/19 22:20 82 17 97 03/02/19 22:18 84 15 03/02/19 22:01 82 17 101/79 03/02/19 21:59 94 H 20 128/102 H 98 03/02/19 21:13 38.2 C H 118 H 20 128/73 97 Laboratory Results Laboratory Results WBC 13.35 K/uL (4.8-10.8) H 03/02/19 22:03 RBC 3.67 M/uL (4.2-5.4) L 03/02/19 22:03 Hgb 11.0 g/dL (12.0-16.0) L 03/02/19 22:03 Hct 30.4 % (37-47) L 03/02/19 22:03 MCV 82.8 fL (80-100) 03/02/19 22:03 MCH 30.0 pg (25-34) 03/02/19 22:03 MCHC 36.2 g/dL (32-36) H 03/02/19 22:03 RDW Std Deviation 38.6 fL (36.4-46.3) 03/02/19 22:03 RDW Coeff of [place]erv[place] 12.7 % (11.5-14.5) 03/02/19 22:03 Plt Count 206 K/uL (130-400) 03/02/19 22:03 MPV 11.0 fL (7.4-10.4) H 03/02/19 22:03 Immature Gran % (Auto) 0.2 % 03/02/19 22:03 Neut % (Auto) 73.1 % 03/02/19 22:03 Lymph % (Auto) 7.6 % 03/02/19 22:03 [place] % (Auto) 19.0 % 03/02/19 22:03 Eos % (Auto) 0.0 % 03/02/19 22:03 Baso % (Auto) 0.1 % 03/02/19 22:03 Immature Gran # (Auto) 0.03 K/uL (0.00-0.02) H 03/02/19 22:03 Neut # (Auto) 9.75 K/uL (1.4-6.5) H 03/02/19 22:03 Lymph # (Auto) 1.01 K/uL (1.2-3.4) L 03/02/19 22:03 [place] # (Auto) 2.54 K/uL (0.11-0.59) H 03/02/19 22:03 Eos # (Auto) 0.00 K/uL (0-0.5) 03/02/19 22:03 Baso # (Auto) 0.02 K/uL (0-0.2) 03/02/19 22:03 Sodium 135 mmol/L (136-145) L 03/02/19 22:03 Potassium 2.3 mmol/L (3.5-5.1) L* 03/02/19 22:03 Chloride 101 mmol/L (98-107) 03/02/19 22:03 Carbon Dioxide 24 mmol/L (21-32) 03/02/19 22:03 11.0 (3-11) 03/02/19 22:03 BUN 11 mg/dl (7-18) 03/02/19 22:03 0.93 mg/dl (0.6-1.2) 03/02/19 22:03 Est Cr Clr Drug Dosing 75.0 ml/min 03/02/19 22:03 Est GFR ( Amer) 95.6 03/02/19 22:03 Est GFR (Non-Af Amer) 82.5 03/02/19 22:03 12.2 (10-20) 03/02/19 22:03 Glucose 102 mg/dl (70-99) H 03/02/19 22:03 0.8 mmol/L (0.4-2.0) 03/02/19 22:03 Calcium 8.4 mg/dl (8.5-10.1) L 03/02/19 22:03 Magnesium 1.7 mg/dl (1.8-2.4) L 03/02/19 22:03 1.2 mg/dl (0.2-1) H 03/02/19 22:03 AST 17 U/L (15-37) 03/02/19 22:03 ALT 12 U/L (12-78) 03/02/19 22:03 81 U/L (45-117) 03/02/19 22:03 8.0 gm/dl (6.4-8.2) 03/02/19 22:03 3.3 gm/dl (3.4-5.0) L 03/02/19 22:03 4.7 gm/dl (2.5-4.0) H 03/02/19 22:03 0.7 (0.9-2) L 03/02/19 22:03 HCG, Qual Negative (Negative) 03/02/19 22:03 Dark Yellow 03/02/19 21:58 Cloudy (Clear) A 03/02/19 21:58 5.5 (4.5-7.5) 03/02/19 21:58 Ur Specific [place] 1.021 (1.000-1.030) 03/02/19 21:58 1+ (Negative) H 03/02/19 21:58 Negative (Negative) 03/02/19 21:58 Negative (Negative) 03/02/19 21:58 1+ (Negative) H 03/02/19 21:58 Positive (Negative) A 03/02/19 21:58 Negative (Negative) 03/02/19 21:58 Negative (Negative) 03/02/19 21:58 Ur Leukocyte Esterase 2+ (Negative) H 03/02/19 21:58 >30 /hpf (0-5) H 03/02/19 21:58 5-10 /hpf (0-4) H 03/02/19 21:58 U Hyaline Cast (Auto) 1-5 /lpf (0-5) 03/02/19 21:58 U Epithel Cells (Auto) >30 /lpf (0-5) H 03/02/19 21:58 4+ (Negative) H 03/02/19 21:[address] abdomen pelvis initial read: Fluid levels in the colon without obstruction or wall thickening, likely mild intestinal illness, normal appendix EKG as per my interpretation rate 95, NSR, T wave flattening anterior leads
[2019-03-03] MEDS: POTASSIUM CHLORIDE 20 MEQ TABCR PO STA ×2 (03:02→03:26)
[2019-03-03] MEDS ORDERED: NSS + 20MEQ KCL 20 MEQ/1,000 ML BAG IV ONE (03:03)
[2019-03-03] MEDS ORDERED: TRAMADOL HCL 50 MG TABLET PO PRN (03:44)
[2019-03-03] MEDS ORDERED: HYOSCYAMINE SULFATE 0.125 MG TAB PO PRN (03:44)
[2019-03-03] MEDS ORDERED: LORazepam 0.25 MG/0.5 ML VIAL IV PRN (03:44)
[2019-03-03] MEDS: KETOROLAC TROMETHAMINE 15 MG/ML VIAL IV PRN ×4 (03:59→23:31)
[2019-03-03] MEDS: ACETAMINOPHEN 325 MG TAB PO PRN ×2 (04:07→11:14)
[2019-03-03] MEDS ORDERED: CEFEPIME CONSULT ACTIVE PRN (04:22)
[2019-03-03] MEDS ORDERED: KETOROLAC TROMETHAMINE 15 MG/ML VIAL IV ONE (04:49)
[2019-03-03] MEDS: POTASSIUM CHLORIDE / WTR 10 MEQ/100 ML PLCT IV SCH ×5 (04:53→09:57)
[2019-03-03] MEDS: OXYCODONE/ACETAMINOPHEN 5mg/325mg TAB PO PRN ×4 (05:46→21:59)
[2019-03-03] MEDS: CEFEPIME 2,000 MG/20 ML VIAL IV SCH ×2 (05:47→17:01)
--- NOTE | 2019-03-03 05:54 | CT Scan Report ---
CT abd pelvis IV con only CT DOSE: 307.73 mGy.cm HISTORY: Pain. Fever. rlq abdominal pain, fever, hx crohns TECHNIQUE: Multiaxial CT images of the abdomen and pelvis were performed following the use of intrave nous contrast. A dose lowering technique was utilized adhering to the principles of ALARA. COMPARISON STUDY: 01/11/2019 FINDINGS: Mild stable splenomegaly. Lung bases are clear. Liver is unremarkable. Prior cholecystectom y. Horseshoe kidney with several cysts unchanged. Slight decreased enhancement lower pole left kidney raising the possibility of focal pyelonephritis. No evidence for hydronephrosis. Uterus is anteflexed. Bladder is midline. Nonobstructive bowel patter n. IMPRESSION: 1. Mild stable splenomegaly. 2. Possible findings of early pyelonephritis. 3. Mild nonobstructive ileus. The above report was generated using voice recognition software. It may contain grammatical, syntax or spelling errors. Electronically signed by: Uriel Brooks M.D. 03/03/2019 5:52 AM
[2019-03-03 06:59] LABS: Basophils # (auto) 0.02 K/uL (0-0.2); Basophils % (auto) 0.2 %; Eosinophils # (auto) 0.01 K/uL (0-0.5); Eosinophils % (auto) 0.1 %; Hematocrit (blood only) 26.8 % (37-47); Hemoglobin 9.7 g/dL (12.0-16.0); Immature Granulocytes # (auto) 0.03 K/uL (0.00-0.02); Immature Granulocytes % (auto) 0.3 %; Lymphocytes # (auto) 0.93 K/uL (1.2-3.4); Lymphocytes % (auto) 9.7 %; Mean Corpuscular Hgb Conc 36.2 g/dL (32-36); Mean Corpuscular Volume 83.2 fL (80-100); Mean Platelet Volume 10.8 fL (7.4-10.4); Monocytes # (auto) 1.65 K/uL (0.11-0.59); Monocytes % (auto) 17.2 %; Neutrophils # (auto) 6.95 K/uL (1.4-6.5); Neutrophils % (auto) 72.5 %; Platelet Count 173 K/uL (130-400); RDW Coefficient of Variation 13.1 % (11.5-14.5); RDW Standard Deviation 39.9 fL (36.4-46.3); Red Blood Count 3.22 M/uL (4.2-5.4); White Blood Count 9.59 K/uL (4.8-10.8)
[2019-03-03 07:09] LABS: INR 1.3 (0.9-1.1); Prothrombin Time 13.4 Seconds (9.0-12.0)
[2019-03-03 07:30] LABS: Calcium 7.8 mg/dl (8.5-10.1); Creatinine Clr Calc Pharmacy 90.3 ml/min; Est GFR (African American) 111.3; Magnesium 1.8 mg/dl (1.8-2.4); Potassium 3.7 mmol/L (3.5-5.1)
[2019-03-03] MEDS: ENOXAPARIN INJ 30 MG/0.3 ML SYR SQ SCH (09:29)
[2019-03-03] MEDS: SODIUM CHLORIDE 0.9% 1000ML 1,000 ML IV SCH ×2 (10:30→23:31)
[2019-03-03] MEDS: PROMETHAZINE HCL 12.5 MG in SODIUM CHLORIDE 0.9% 50 ML IV PRN ×2 (11:14→17:31)
--- NOTE | 2019-03-03 15:46 | Hospitalist Progress Note ---
Date of Service March 03, 2019 Assessment & Plan (1) Sepsis: Secondary to complicated UTI Immunocompromised patient H/O Crohn's disease on mercaptopurine H/O horshoe Kidney with several Cysts CTA:Mild stable splenomegaly. Possible findings of early pyelonephritis. Mild nonobstructive ileus. UA suggestive of UTI Blood/Urine Culture:L pending Continue IV Cefepime, IV fluids, Pain control May need Urology Eval as outpatient Hypokalemia Due to GI loses Replace and monitor electrolytes as needed Check Magnesium levels Mood disorder stable H/O Crohn's disease Chronic diarrhea--unchanged per patient On Remicade, mercaptopurine Hold above Meds in setting of acute infection DVT Px: Lovenox Sq Code Status Full code Subjective Patient is seen and examined at bedside Febrile this morning Complains of right flank pain radiating to the groin, dysuria Reports chills Has chronic diarrhea--unchanged Denies any chest pain, shortness of breath, hematuria, dizziness Offers no other complaints Review of Systems Review of Systems: All systems reviewed & are unremarkable except as noted in HPI & below Physical Exam Physical Exam: Physical Exam: Vitals signs as noted above General Appearance:Moderately built and nourished Head: normocephalic, Atraumatic Eyes: normal inspection, EOMI Neck: supple, Trachea midline Respiratory/Chest: Normal breath sounds, CTA Cardiovascular: S1, S2, No murmur Abdomen/GI:Soft, R flank, RLQ tender, Bowel sounds present Extremities/Musculoskelatal:normal inspection, no edema Neurologic/Psych:AAOX3, grossly no focal neurological deficits Skin: normal color, warm Results & Data Vital Signs (Past 12 Hours) Vital Signs Temp Pulse Pulse Resp BP BP Pulse Ox 03/03/19 13:32 37.5 C 03/03/19 11:00 38.8 C H 109 H 18 103/59 L 98 03/03/19 08:10 92 H 03/03/19 08:02 96/65 L 03/03/19 07:00 37.3 C 93 H 18 82/52 L 100 03/03/19 05:00 37.7 C H 03/03/19 04:00 117 H 03/03/19 03:44 38.1 C H 120 H 20 116/72 99 Pulse Ox 03/03/19 13:32 03/03/19 11:00 03/03/19 08:10 03/03/19 08:02 03/03/19 07:00 03/03/19 05:00 03/03/19 04:00 03/03/19 03:44 99 Laboratory Results Short CBC 03/02/19 03/03/19 Range/Units 22:03 06:39 WBC 13.35 H 9.59 (4.8-10.8) K/uL Hgb 11.0 L 9.7 L (12.0-16.0) g/dL Hct 30.4 L 26.8 L (37-47) % Plt Count 206 173 (130-400) K/uL BMP 03/02/19 03/03/19 22:03 06:39 Sodium 135 L 143 D Potassium 2.3 L* 3.7 D Chloride 101 114 H Carbon Dioxide 24 20 L BUN 11 7 Creatinine 0.93 0.82 Glucose 102 H 110 H Calcium 8.4 L 7.8 L Liver Function 03/02/19 Range/Units 22:03 Total Bilirubin 1.2 H (0.2-1) mg/dl AST 17 (15-37) U/L ALT 12 (12-78) U/L Alkaline Phosphatase 81 (45-117) U/L Albumin 3.3 L (3.4-5.0) gm/dl Urine 03/02/19 Range/Units 21:58 Urine Color Dark Yellow Urine Appearance Cloudy A (Clear) Urine pH 5.5 (4.5-7.5) Ur Specific [place] 1.021 (1.000-1.030) Urine Protein 1+ H (Negative) Urine Glucose (UA) Negative (Negative)
[2019-03-04] MEDS ORDERED: IBUPROFEN 200 MG TAB PO STA (00:15)
[2019-03-04] MEDS ORDERED: PIPERACILLIN/TAZOBACTAM 4.5 GM in DEXTROSE 5% 100 ML IV STA (00:16)
[2019-03-04] MEDS ORDERED: PIPERACILL/TAZOBAC CONSULT ACTIVE PRN (00:16)
--- NOTE | 2019-03-04 00:22 | Hospitalist Progress Note ---
Date of Service March 04, 2019 Subjective Made aware by RN of recurrent fever spikes despite ongoing cefepime Rx. Same achy right flank pain as per patient. AP Recurrent fever spikes Ongoing Cefepime Rx for recurrent complicated UTI, hxCrohn's disease Change Cefepime to Zosyn for expanded coverage. Will relay to AM provider. Results & Data Vital Signs (Past 12 Hours) Vital Signs Temp Pulse Pulse Resp BP BP Pulse Ox 03/04/19 00:00 98 H 03/03/19 23:34 38.5 C H 103 H 20 103/68 98 03/03/19 19:44 37.6 C H 102 H 20 106/70 97 03/03/19 16:00 83 03/03/19 15:00 37.8 C H 90 18 109/75 100 03/03/19 13:32 37.5 C
[2019-03-04] MEDS ORDERED: PIPERACILLIN/TAZOBACTAM 3.375 GM in DEXTROSE 5% 100 ML IV ONE (00:30)
[2019-03-04] MEDS: MoRPHine SULFATE 2 MG/ML CARP IV PRN ×3 (00:58→18:53)
[2019-03-04] MEDS: PIPERACILLIN/TAZOBACTAM 3.375 GM in DEXTROSE 5% 100 ML IV SCH ×3 (05:35→21:34)
[2019-03-04] MEDS: PROMETHAZINE HCL 12.5 MG in SODIUM CHLORIDE 0.9% 50 ML IV PRN ×2 (05:40→21:40)
[2019-03-04 07:29] LABS: Basophils # (auto) 0.03 K/uL (0-0.2); Basophils % (auto) 0.3 %; Eosinophils # (auto) 0.01 K/uL (0-0.5); Eosinophils % (auto) 0.1 %; Hematocrit (blood only) 26.7 % (37-47); Hemoglobin 9.5 g/dL (12.0-16.0); Immature Granulocytes # (auto) 0.04 K/uL (0.00-0.02); Immature Granulocytes % (auto) 0.4 %; Lymphocytes # (auto) 1.52 K/uL (1.2-3.4); Lymphocytes % (auto) 13.5 %; Mean Corpuscular Hgb Conc 35.6 g/dL (32-36); Mean Corpuscular Volume 84.2 fL (80-100); Mean Platelet Volume 10.9 fL (7.4-10.4); Monocytes # (auto) 1.94 K/uL (0.11-0.59); Monocytes % (auto) 17.3 %; Neutrophils % (auto) 68.4 %; Platelet Count 176 K/uL (130-400); RDW Coefficient of Variation 13.4 % (11.5-14.5); Red Blood Count 3.17 M/uL (4.2-5.4); White Blood Count 11.24 K/uL (4.8-10.8)
[2019-03-04 08:11] LABS: BUN Creatinine Ratio 8.4 (10-20); Calcium 7.8 mg/dl (8.5-10.1); Creatinine Clr Calc Pharmacy 108.9 ml/min; Est GFR (Non-African American) 117.4; Magnesium 1.7 mg/dl (1.8-2.4); Potassium 2.9 mmol/L (3.5-5.1)
[2019-03-04] MEDS: OXYCODONE/ACETAMINOPHEN 5mg/325mg TAB PO PRN ×3 (08:32→21:39)
[2019-03-04] MEDS: ENOXAPARIN INJ 30 MG/0.3 ML SYR SQ SCH (08:32)
[2019-03-04] MEDS ORDERED: POTASSIUM CHLORIDE 20 MEQ TABCR PO STA (08:55)
[2019-03-04] MEDS ORDERED: MAGNESIUM SULFATE / D5W 1 GM/100 ML BAG IV SCH (09:15)
[2019-03-04] MEDS: NSS + 20MEQ KCL 20 MEQ/1,000 ML BAG IV SCH ×2 (10:08→22:44)
[2019-03-04] MEDS: POTASSIUM CHLORIDE / WTR 10 MEQ/100 ML PLCT IV SCH ×4 (10:09→12:44)
[2019-03-04] MEDS: KETOROLAC TROMETHAMINE 15 MG/ML VIAL IV PRN (11:50)
[2019-03-04 17:41] LABS: BUN Creatinine Ratio 8.2 (10-20); Calcium 7.8 mg/dl (8.5-10.1); Creatinine Clr Calc Pharmacy 104.3 ml/min; Est GFR (African American) 132.5; Est GFR (Non-African American) 114.3; Potassium 3.9 mmol/L (3.5-5.1)
--- NOTE | 2019-03-04 18:27 | Hospitalist Progress Note ---
Date of Service March 04, 2019 Assessment & Plan (1) Sepsis: Secondary to complicated UTI Immunocompromised patient H/O Crohn's disease on mercaptopurine H/O horseshoe Kidney with several Cysts CTA:Mild stable splenomegaly. Possible findings of early pyelonephritis. Mild nonobstructive ileus. Blood Culture:No growth Urine Culture: E.coli Continue IV Cefepime>> Zosyn Continue IV fluids, Pain control May need Urology Eval as outpatient Hypokalemia Hypomagnesemia Due to GI loses Replace and monitor electrolytes as needed Mood disorder stable H/O Crohn's disease Chronic diarrhea--unchanged per patient On Remicade, mercaptopurine Hold above Meds in setting of acute infection DVT Px: Lovenox Sq Code Status Full code Subjective Patient is seen and examined at bedside Has recurrence of fever spikes overnight Afebrile this morning Antibiotics changed to IV Zosyn Continues to have right flank pain radiating to the groin Dysuria, chills resolved Has chronic diarrhea--unchanged--negative for C. difficile Denies any chest pain, shortness of breath, hematuria, dizziness Offers no other complaints Review of Systems Review of Systems: All systems reviewed & are unremarkable except as noted in HPI & below Physical Exam Physical Exam: Physical Exam: Vitals signs as noted above General Appearance:Moderately built and nourished Head: normocephalic, Atraumatic Eyes: normal inspection, EOMI Neck: supple, Trachea midline Respiratory/Chest: Normal breath sounds, CTA Cardiovascular: S1, S2, No murmur Abdomen/GI:Soft, R flank, RLQ tender, Bowel sounds present Extremities/Musculoskelatal:normal inspection, no edema Neurologic/Psych:AAOX3, grossly no focal neurological deficits Skin: normal color, warm Results & Data Vital Signs (Past 12 Hours) Vital Signs Temp Pulse Pulse Resp BP Pulse Ox 03/04/19 15:41 82 03/04/19 15:24 37.1 C 76 18 94/61 L 97 03/04/19 11:21 37.5 C 103 H 18 111/70 94 03/04/19 08:00 95 H 03/04/19 07:24 37.6 C H 95 H 18 118/69 97 Laboratory Results Short CBC 03/04/19 Range/Units 06:50 WBC 11.24 H (4.8-10.8) K/uL Hgb 9.5 L (12.0-16.0) g/dL Hct 26.7 L (37-47) % Plt Count 176 (130-400) K/uL BMP 03/04/19 03/04/19 06:50 16:59 Sodium 142 138 Potassium 2.9 L D 3.9 D Chloride 112 H 110 H Carbon Dioxide 21 23 BUN 6 L 6 L Creatinine 0.68 0.71 Glucose 94 72 Calcium 7.8 L 7.8 L
[2019-03-04] MEDS ORDERED: LEVALBUTEROL HCL 0.63 MG/3 ML NEB NEB PRN (18:51)
[2019-03-04] MEDS: ACETAMINOPHEN 325 MG TAB PO PRN (18:53)
[2019-03-05] MEDS: OXYCODONE/ACETAMINOPHEN 5mg/325mg TAB PO PRN ×4 (01:18→23:24)
[2019-03-05] MEDS: MoRPHine SULFATE 2 MG/ML CARP IV PRN ×3 (04:39→21:59)
[2019-03-05] MEDS: PROMETHAZINE HCL 12.5 MG in SODIUM CHLORIDE 0.9% 50 ML IV PRN (04:41)
[2019-03-05] MEDS: PIPERACILLIN/TAZOBACTAM 3.375 GM in DEXTROSE 5% 100 ML IV SCH ×3 (05:38→21:58)
[2019-03-05 07:54] LABS: Hematocrit (blood only) 27.2 % (37-47); Hemoglobin 9.3 g/dL (12.0-16.0); Mean Corpuscular Hgb Conc 34.2 g/dL (32-36); Mean Corpuscular Volume 85.8 fL (80-100); Platelet Count 200 K/uL (130-400); RDW Coefficient of Variation 13.6 % (11.5-14.5); Red Blood Count 3.17 M/uL (4.2-5.4); White Blood Count 8.67 K/uL (4.8-10.8)
[2019-03-05 08:28] LABS: BUN Creatinine Ratio 6.9 (10-20); Calcium 7.8 mg/dl (8.5-10.1); Creatinine Clr Calc Pharmacy 119.4 ml/min; Est GFR (Non-African American) 117.4; Magnesium 2.2 mg/dl (1.8-2.4); Potassium 3.5 mmol/L (3.5-5.1)
[2019-03-05] MEDS: ENOXAPARIN INJ 30 MG/0.3 ML SYR SQ SCH (09:06)
[2019-03-05] MEDS ORDERED: POTASSIUM CHLORIDE 20 MEQ TABCR PO STA (09:11)
[2019-03-05] MEDS: NSS + 20MEQ KCL 20 MEQ/1,000 ML BAG IV SCH ×2 (11:32→23:25)
--- NOTE | 2019-03-05 16:16 | Hospitalist Progress Note ---
Date of Service March 05, 2019 Assessment & Plan (1) Sepsis: Secondary to complicated UTI Immunocompromised patient H/O Crohn's disease on mercaptopurine H/O horseshoe Kidney with several Cysts CTA:Mild stable splenomegaly. Possible findings of early pyelonephritis. Mild nonobstructive ileus. Blood Culture:No growth Urine Culture: E.coli--pansensitive Continue IV Cefepime>> Zosyn Continue IV fluids, Pain control May need Urology Eval as outpatient Abd pain improving Hemoglobin drop likely hemo-dilutional secondary to IV fluids Monitor CBC Denies any bleeding issues Hypokalemia Hypomagnesemia Due to GI loses Replace and monitor electrolytes as needed Mood disorder stable H/O Crohn's disease Chronic diarrhea--unchanged per patient On Remicade, mercaptopurine Hold above Meds in setting of acute infection DVT Px: Lovenox Sq Code Status Full code Subjective Patient is seen and examined at bedside Has low-grade fever this morning Abdominal pain improved Nauseous this morning but denies vomiting Has chronic diarrhea--unchanged Denies any chest pain, SOB, dysuria, hematuria, dizziness No other complaints Review of Systems Review of Systems: All systems reviewed & are unremarkable except as noted in HPI & below Physical Exam Physical Exam: Physical Exam: Vitals signs as noted above General Appearance:Moderately built and nourished Head: normocephalic, Atraumatic Eyes: normal inspection, EOMI Neck: supple, Trachea midline Respiratory/Chest: Normal breath sounds, CTA Cardiovascular: S1, S2, No murmur Abdomen/GI:Soft, R flank, RLQ mild tender, Bowel sounds present Extremities/Musculoskelatal:normal inspection, no edema Neurologic/Psych:AAOX3, grossly no focal neurological deficits Skin: normal color, warm Results & Data Vital Signs (Past 12 Hours) Vital Signs Temp Pulse Resp BP BP Pulse Ox 03/05/19 14:31 37.7 C H 89 18 110/74 97 03/05/19 11:31 37.0 C 89 18 111/72 95 03/05/19 07:20 37.9 C H 117 H 18 106/69 96 Laboratory Results Short CBC 03/05/19 Range/Units 07:46 WBC 8.67 (4.8-10.8) K/uL Hgb 9.3 L (12.0-16.0) g/dL Hct 27.2 L (37-47) % Plt Count 200 (130-400) K/uL BMP 03/04/19 03/05/19 16:59 07:46 Sodium 138 141 Potassium 3.9 D 3.5 Chloride 110 H 111 H Carbon Dioxide 23 22 BUN 6 L 5 L Creatinine 0.71 0.68 Glucose 72 100 H Calcium 7.8 L 7.8 L
[2019-03-06] MEDS: PIPERACILLIN/TAZOBACTAM 3.375 GM in DEXTROSE 5% 100 ML IV SCH (05:08)
[2019-03-06] MEDS: MoRPHine SULFATE 2 MG/ML CARP IV PRN (07:52)
[2019-03-06] MEDS: ENOXAPARIN INJ 30 MG/0.3 ML SYR SQ SCH (07:54)
[2019-03-06 08:01] LABS: Hematocrit (blood only) 27.9 % (37-47); Hemoglobin 9.4 g/dL (12.0-16.0); Mean Corpuscular Hgb Conc 33.7 g/dL (32-36); Mean Corpuscular Volume 85.8 fL (80-100); Mean Platelet Volume 10.6 fL (7.4-10.4); Platelet Count 250 K/uL (130-400); RDW Coefficient of Variation 13.5 % (11.5-14.5); RDW Standard Deviation 42.9 fL (36.4-46.3); Red Blood Count 3.25 M/uL (4.2-5.4); White Blood Count 5.65 K/uL (4.8-10.8)
[2019-03-06 08:33] LABS: BUN Creatinine Ratio 8.1 (10-20); Calcium 8.3 mg/dl (8.5-10.1); Creatinine Clr Calc Pharmacy 133.9 ml/min; Est GFR (African American) 141.8; Est GFR (Non-African American) 122.3; Potassium 3.6 mmol/L (3.5-5.1)
[2019-03-06] MEDS: OXYCODONE/ACETAMINOPHEN 5mg/325mg TAB PO PRN ×2 (09:03→14:05)
[2019-03-06 11:35] VITALS: PULSE 67; TEMP 97.9; O2SAT 98
--- NOTE | 2019-03-06 12:53 | Hospitalist Progress Note ---
Date of Service March 06, 2019 Assessment & Plan (1) Sepsis: Secondary to complicated UTI Immunocompromised patient H/O Crohn's disease on mercaptopurine H/O horseshoe Kidney with several Cysts CTA:Mild stable splenomegaly. Possible findings of early pyelonephritis. Mild nonobstructive ileus. Blood Culture:No growth Urine Culture: E.coli--pansensitive Continue IV Cefepime>> Zosyn>> plan to transition to p.o. antibiotics upon discharge Received IV fluids May need Urology Eval as outpatient Hemoglobin drop likely hemo-dilutional secondary to IV fluids No overt bleeding issues Hypokalemia Hypomagnesemia Due to GI loses Replace and monitor electrolytes as needed Mood disorder stable H/O Crohn's disease Chronic diarrhea--unchanged per patient On Remicade, mercaptopurine Hold above Meds in setting of acute infection DVT Px: Lovenox Sq Code Status Full code Disposition: Plan to discharge home today Subjective Patient is seen and examined at bedside Fever resolved Abdominal pain resolved Has chronic diarrhea--unchanged Denies any chest pain, SOB, dysuria, hematuria, dizziness No other complaints Review of Systems Review of Systems: All systems reviewed & are unremarkable except as noted in HPI & below Physical Exam Physical Exam: Physical Exam: Vitals signs as noted above General Appearance:Moderately built and nourished Head: normocephalic, Atraumatic Eyes: normal inspection, EOMI Neck: supple, Trachea midline Respiratory/Chest: Normal breath sounds, CTA Cardiovascular: S1, S2, No murmur Abdomen/GI:Soft, Non tender, Bowel sounds present Extremities/Musculoskelatal:normal inspection, no edema Neurologic/Psych:AAOX3, grossly no focal neurological deficits Skin: normal color, warm Results & Data Vital Signs (Past 12 Hours) Vital Signs Temp Pulse Resp BP BP Pulse Ox 03/06/19 11:34 36.6 C 67 18 102/69 98 03/06/19 07:21 36.8 C 83 18 110/72 96 03/06/19 04:00 36.8 C 70 18 96/66 L 96 Laboratory Results Short CBC 03/06/19 Range/Units 07:41 WBC 5.65 (4.8-10.8) K/uL Hgb 9.4 L (12.0-16.0) g/dL Hct 27.9 L (37-47) % Plt Count 250 (130-400) K/uL [facility] 03/06/19 07:41 Sodium 143 Potassium 3.6 Chloride 112 H Carbon Dioxide 23 BUN 5 L Creatinine 0.60 Glucose 88 Calcium 8.3 L
--- NOTE | 2019-03-06 12:58 | Discharge Summary ---
Date of Service March 06, 2019 Admission HPI Per Admitting Provider History obtained from patient and records. Medical history significant for Crohn's disease on mercaptopurine, mood disorder, GERD,chronic anemia baseline hemoglobin of 11. Patient confined June 2018 for right flank pain, possible pyelonephritis. 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 Recent confinement January 2019 for colitis. 4 days history of sharp lower abdominal pain going to the back. Patient somewhat constipated the last 2 days. No chest pain, no S OB. No hematuria. Some nausea, poor p.o. intake Patient noted fever chills. At the ER, patient received IV ceftriaxone for sepsis. Admission Exam Per Admitting Provider GENERAL: uncomfortable, wane, no respiratory distress SKIN: Pallor , warm HEENT: [place] palpebral conjunctivae, no ptosis, dry buccal mucosa NECK : Supple, no tenderness CHEST : CTA, no tenderness HEART : Tachycardic , no obvious murmurs ABDOMEN: Some distention, hypogastric tenderness EXTREMITIES : No LE swelling/tenderness, no other conspicuous deformities noted NEUROLOGIC : Coherent, no facial asymmetry, no other gross focality Principal Diagnosis Discharge Information Discharge Diagnosis Sepsis Acute Pyelonephritis Hypokalemia Hypomagnesemia Discharge Goals Decrease discomfort,Improve disease control, Improve function Discharge Activity Limitations Resume your previous activity Discharge Data Allergies Allergy/AdvReac Type Severity Reaction Status Date / Time No Known Allergies Allergy ` Verified 03/02/19 21:47 Consultations 03/02/19 23:45 ED Decision to Admit Stat Procedures Performed CT ABD: 1. Mild stable splenomegaly. 2. Possible findings of early pyelonephritis. 3. Mild nonobstructive ileus. Ordered Studies 03/02/19 21:39 CT abd pelvis IV con only Urgent Hospital Course (1) Sepsis: Secondary to complicated UTI Immunocompromised patient H/O Crohn's disease on mercaptopurine H/O horseshoe Kidney with several Cysts CTA:Mild stable splenomegaly. Possible findings of early pyelonephritis. Mild nonobstructive ileus. Blood Culture:No growth Urine Culture: E.coli--pansensitive Continue IV Cefepime>> Zosyn>> plan to transition to p.o. antibiotics upon discharge Received IV fluids May need Urology Eval as outpatient Hemoglobin drop likely hemo-dilutional secondary to IV fluids No overt bleeding issues Hypokalemia Hypomagnesemia Due to GI loses Replace and monitor electrolytes as needed Mood disorder stable H/O Crohn's disease Chronic diarrhea--unchanged per patient On Remicade, mercaptopurine Hold above Meds in setting of acute infection DVT Px: Lovenox Sq Code Status Full code Disposition: Plan to discharge home today Total Time Total Time Spent Total Time Spent (In Minutes): 39 minutes Total Time Includes: Examination of the Patient, Discharge Planning, Medication Reconciliation, Communication With Other Providers and Other Discharge Plan Discharge Items Patient Disposition: Home - Self-Care Reason For Visit: SEPSIS Discharge Diagnosis: Sepsis Acute Pyelonephritis Hypokalemia Hypomagnesemia Discharge Goals: Decrease discomfort, Improve disease control and Improve function Activity: Resume your previous activity Exercise/Sports: Gradually increase as tolerated Non-emergency contact: Primary Care Provider and Urologist Call non-emergency contact if: you have any medication questions, your symptoms worsen, your pain is not controlled, your pain is worsening, your pain is unusual for you, your pain is concerning for you and you have a fever Follow-up/Referrals: Yasir Villalobos DO [Primary Care Provider] - Diet: Lactose Intolerant Addtl Provider Instructions: Follow-up with your primary care physician on 03/07/19 at 12:45pm Follow-up with your urologist as outpatient as per recommendations by your primary care physician Complete the antibiotic course as prescribed Avoid taking ondansetron while on antibiotic--ciprofloxacin. Seek immediate medical attention if your symptoms reoccur or worsen Prescriptions: New ciprofloxacin HCl [Cipro] 500 mg tablet 500 mg PO BID Qty: 10 RF: 0 prochlorperazine maleate [Compazine] 5 mg tablet 5 mg PO BID PRN (Reason: nausea and vomiting) 5 Days Qty: 10 RF: 0 Continued albuterol sulfate [Ventolin HFA] 90 mcg/actuation Hfa Aerosol Inhaler 2 puff INHALATION Q6H PRN (Reason: Shortness Of Breath Or Wheezing) RF: 0 mercaptopurine 50 mg tablet 75 mg PO DAILY RF: 0 ondansetron 8 mg tablet,disintegrating 8 mg translingual Q6 PRN (Reason: Nausea) RF: 0 hyoscyamine sulfate 0.125 mg tablet 0.25 mg PO TID PRN (Reason: Abdominal Pain) RF: 0 acetaminophen [Tylenol Extra Strength] 500 mg Tablet 2,000 mg PO BID PRN (Reason: Pain) RF: 0 Remicade 100 mg Recon Soln 100 mg IV .EVERY 6 WEEKS RF: 0 Stand-Alone Forms: Call Back Authorization, [facility] Discharge Orders: Discharge Order (Routine); Ordered 03/06/19 Ordered By: Meir Bueno Admission Data Admit Date/Time: 03/03/19 02:58 Attending Provider: Meir Bueno Admit Provider: Robbi Weldon Primary Care Provider: Yasir Villalobos Other Providers: Robbi Weldon Service: Telemetry Medical Other Interventions: Discharge Summary Assessment (RN) Last Done: 03/06/19 13:44 Pending Studies at Discharge: No DC Date/Time DO NOT enter until pt leaves facility: 03/06/19 15:09
[2019-03-06 13:47] VITALS: BP 110/72
== END 2019-03-06 15:09 | disposition home or self-care (01) | DRG 872 ==
LOC: ED 21:11 → 2W 03-03 02:58
DX: E83.42 Hypomagnesemia; E87.6 Hypokalemia; K21.9 Gastro-esophageal reflux disease without esophagitis; K50.90 Crohn's disease, unspecified, without complications; N10 Acute pyelonephritis; Z79.899 Other long term (current) drug therapy; J45.909 Unspecified asthma, uncomplicated; F32.9 Major depressive disorder, single episode, unspecified; D64.9 Anemia, unspecified; A41.9 Sepsis, unspecified organism; F39 Unspecified mood [affective] disorder; Q63.1 Lobulated, fused and horseshoe kidney

== ENCOUNTER 2021-08-09 16:38 | Inpatient (IN) ==
[2021-08-09] MEDS ORDERED: LACTATED RINGER'S 500 ML IV ONE (17:18)
[2021-08-09] MEDS ORDERED: LACTATED RINGER'S 1,000 ML IV PRN (17:18)
[2021-08-09 20:54] LABS: Basophils # (auto) 0.02 K/uL (0-0.2); Basophils % (auto) 0.2 %; Eosinophils # (auto) 0.05 K/uL (0-0.5); Eosinophils % (auto) 0.5 %; Hematocrit (blood only) 30.3 % (37-47); Hemoglobin 10.5 g/dL (12.0-16.0); Immature Granulocytes # (auto) 0.05 K/uL (0.00-0.02); Immature Granulocytes % (auto) 0.5 %; Lymphocytes # (auto) 2.33 K/uL (1.2-3.4); Lymphocytes % (auto) 22.6 %; Mean Corpuscular Hemoglobin 27.9 pg (25-34); Mean Corpuscular Hgb Conc 34.7 g/dL (32-36); Mean Corpuscular Volume 80.4 fL (80-100); Mean Platelet Volume 9.8 fL (7.4-10.4); Monocytes % (auto) 5.8 %; Neutrophils # (auto) 7.26 K/uL (1.4-6.5); Neutrophils % (auto) 70.4 %; Platelet Count 259 K/uL (130-400); RDW Coefficient of Variation 15.1 % (11.5-14.5); RDW Standard Deviation 44.5 fL (36.4-46.3); Red Blood Count 3.77 M/uL (4.2-5.4); White Blood Count 10.31 K/uL (4.8-10.8)
[2021-08-09] MEDS ORDERED: miSOPROStoL 200 MCG TAB ONE (21:03)
[2021-08-09] MEDS ORDERED: ceFAZolin 2000MG 2,000 MG/15 ML SYR IV ONE (21:30)
--- NOTE | 2021-08-09 21:38 | Anesthesiology Consultation ---
Date of Service August 09, 2021 Assessment & Plan Chart Review Chart Review: Acceptable Risk for Surgery Consults Requested none History Surgery Operation Date: 08/09/21 22:00 Proposed Procedures p Section in LD(Bilateral) - Qasim Flaherty MD Height/Weight Height: 5 ft Weight: 71.668 kg Allergies Allergy/AdvReac Type Severity Reaction Status Date / Time No Known Allergies Allergy ` Verified 03/16/21 17:02 Medications Home Medications Medication Instructions Recorded Confirmed Last Taken albuterol sulfate 90 mcg/actuation 2 puff INHALATION Q6H PRN 06/15/18 08/09/21 11/05/20 aerosol inhaler (Ventolin HFA) ondansetron 8 mg disintegrating 8 mg PO .Q6-8H PRN 07/12/20 08/09/21 08/01/21 12:00 tablet prenat.vits,niki,bdi-yamw-arjcq 1 tab PO DAILY 08/01/21 08/09/21 07/31/21 12:00 Active Medications Generic Name Dose Route Start Last Admin Trade Name Freq PRN Reason Stop Dose Admin Lactated Ringer's 1,000 mls @ 125 mls/hr 08/09/21 17:18 08/09/21 18:23 Lr IV 09/08/21 17:17 125 mls/hr .Q8H PRN Administration L&D Protocol Protocol Past Medical History Medical History Anxiety Asthma uses PRN inh 1xwk on average Depression GERD (gastroesophageal reflux disease) IBS (irritable bowel syndrome) Sepsis Past Family History Family History Grandmother Kidney stone Other No family history of adverse response to anesthesia Past Surgical History Surgical History H/O cystoscopy History of adenoidectomy History of History of cholecystectomy History of colonoscopy History of colposcopy History of tonsillectomy History of tooth extraction Social History Smoking Status: Never smoker Hx Alcohol Use: No Hx Substance Use: No substance use type: does not use Physical Exam Vital Signs Last Vital Signs Temp 36.9 C 08/09/21 19:11 Pulse 66 11/02/21 21:26 Resp 18 08/09/21 19:11 BP 123/76 08/09/21 21:26 Testing Laboratory Results 08/09/21 20:43
[2021-08-09] MEDS ORDERED: ONDANSETRON INJ 2 MG/ML 2 ML VIAL IV PRN (21:39)
[2021-08-09] MEDS ORDERED: NALOXONE HCL 0.08 MG in SYRINGE 1.8 ML IV PRN (21:39)
[2021-08-09] MEDS ORDERED: LACTATED RINGER'S 500 ML IV PRN (21:39)
[2021-08-09] MEDS ORDERED: METOCLOPRAMIDE HCL 10 MG in SODIUM CHLORIDE 0.9% 50 ML IV PRN (21:39)
[2021-08-09] MEDS ORDERED: diphenhydrAMINE 50 MG/ML VIAL IV PRN (21:39)
[2021-08-09] MEDS ORDERED: ePHEDrine sulfate 50 MG/ML AMP IV PRN (21:39)
[2021-08-09] MEDS ORDERED: CITRIC ACID/SODIUM CITRATE 15 ML UDC PO STA (21:39)
[2021-08-09] MEDS ORDERED: MoRPHine SULFATE PF 1 MG/ML 10 ML AMP/VIAL INT SPINAL ONE (21:39)
[2021-08-09] MEDS ORDERED: NALOXONE HCL 1 MG in SODIUM CHLORIDE 0.9% 1000ML 1,000 ML IV PRN (21:39)
[2021-08-09] MEDS ORDERED: PROMETHAZINE HCL 12.5 MG in SODIUM CHLORIDE 0.9% 50 ML IV PRN (21:39)
[2021-08-09] MEDS ORDERED: NALOXONE HCL 0.4 MG/1 ML VIAL/CARP IV PRN (21:39)
[2021-08-09] MEDS ORDERED: NALBUPHINE HCL INJ 10 MG/ML AMP IV PRN (21:39)
[2021-08-09] MEDS ORDERED: OXYTOCIN 10 UNITS/ML VIAL ONE (21:44)
[2021-08-09] MEDS ORDERED: ePHEDrine sulfate 50 MG/ML SYR ONE (21:44)
[2021-08-09] MEDS ORDERED: NO NARCOTICS OR SEDATIVES SCH (21:45)
[2021-08-09] MEDS ORDERED: SODIUM CHLORIDE 0.9% 1000ML 1,000 ML IV SCH (21:45)
[2021-08-09] MEDS ORDERED: MoRPHine SULFATE PF 1 MG/ML 10 ML AMP/VIAL ONE (21:45)
[2021-08-09] MEDS ORDERED: DC INTRASPINAL MORPHINE SCH (21:45)
--- NOTE | 2021-08-09 21:47 | Progress Note ---
Date of Service August 09, 2021 Assessment & Plan (1) : Plan: Pt is 30yo at term Prior c/sec sec. pt is seen on L&D for labor check pt has ctx 1-2mins pt wishes to have repeat c./sec consent obtained discussed an reviewed risk of surgery Admission and Anticipated Discharge Date Admission Date: August 09, 2021 Results & Data ([facility]) Vital Signs (Past 12 Hours) Vital Signs Temp Pulse Resp BP 08/09/21 21:26 66 123/76 08/09/21 19:12 73 139/64 08/09/21 19:11 36.9 C 18 08/09/21 18:00 18 08/09/21 16:47 80 115/76 08/09/21 16:46 36.8 C 18
--- NOTE | 2021-08-09 21:50 | History & Physical Report ---
Date of Service August 09, 2021 Assessment & Plan (1) : Plan: admit c/sec consnet obtained [facility] for repeat c/sec Admission and Anticipated Discharge Date Admission Date: August 09, 2021 History of Present Illness Chief Complaint: at term. prior c/sec wishes to have repeat c/sec Primary Care Provider: Yasir Villalobos DO Pt is 30yo at term. prior c./sec wishes to have repeat c/sec pPt is kelechi Q 1-2 mns Allergies Allergy/AdvReac Type Severity Reaction Status Date / Time No Known Allergies Allergy ` Verified 03/16/21 17:02 Home Medications Medication Instructions Recorded Confirmed Type albuterol sulfate 90 mcg/actuation 2 puff INHALATION Q6H PRN 06/15/18 08/09/21 History aerosol inhaler (Ventolin HFA) ondansetron 8 mg disintegrating 8 mg PO .Q6-8H PRN 07/12/20 08/09/21 History tablet prenat.vits,niki,xir-ftaw-gsblv 1 tab PO DAILY 08/01/21 08/09/21 History Past Med/Surg History Medical History Anxiety Asthma uses PRN inh 1xwk on average Depression GERD (gastroesophageal reflux disease) IBS (irritable bowel syndrome) Sepsis Surgical History H/O cystoscopy History of adenoidectomy History of History of cholecystectomy History of colonoscopy History of colposcopy History of tonsillectomy History of tooth extraction Family History Grandmother Kidney stone Other No family history of adverse response to anesthesia Social History Smoking Status: Never smoker Second Hand Exposure: No; Hx Alcohol Use: No Hx Substance Use: No Preferred Language: Italian Communication Ability: Effective Blunger Loader Required: No Beliefs That Will Affect Care: None marital status: Single Current Living Situation: Significant 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 Feels Safe at Home: Yes Assistive Devices: Contacts and Glasses Review of Systems Review of Systems: All systems reviewed & are unremarkable except as noted in HPI & below Physical Exam Constitutional: WD/WN, vitals as above well developed and well nourished Eyes: PERRL, conjunctivae normal, anicteric sclerae Neck: trachea midline, no thyromegaly Respiratory: normal respiratory effort, lungs clear to auscultation Auscultation: no crackles, no rales and no wheezes Cardiovascular: RRR, no murmur, no edema Gastrointestinal (Abdomen): normal bowel sounds, soft, nontender, no hepatosplenomegaly Uterus is below umbilicus Musculoskeletal: no cyanosis or clubbing, extremities motor strength 5/5 Skin: no rashes, warm and dry Neurologic: patellar DTR's 2+ bilat, sensation intact Psychiatric: A+Ox3, euthymic affect Genitourinary: normal external appearance Results & Data Results & Data ([facility]) Vital Signs (Past 12 Hours) Vital Signs Temp Pulse Resp BP 08/09/21 21:26 66 123/76 08/09/21 19:12 73 139/64 08/09/21 19:11 36.9 C 18 08/09/21 18:00 18 08/09/21 16:47 80 115/76 08/09/21 16:46 36.8 C 18 Code Status & VTE Plan VTE Prophylaxis Plan VTE Prophylaxis will be ordered: No
[2021-08-09] MEDS ORDERED: LACTATED RINGER'S 1,000 ML IV SCH ×3 (22:00→23:15)
[2021-08-09] MEDS ORDERED: fentaNYL citrate 100 MCG/2 ML VIAL ONE ×3 (22:25→22:43)
[2021-08-09] MEDS ORDERED: MIDAZOLAM HCL 1 MG/ML 2ML VIAL ONE (22:44)
[2021-08-09 23:05] LABS: Oxygen Sat Cord Arterial Blood < 60.0 % (<60)
[2021-08-09 23:07] LABS: Cord Venous Blood HCO3 25 mmol/L (18.4-26.8); Cord Venous Blood PCO2 45 mmHg (30.4-57.2); Cord Venous Blood PO2 21 mmHg (14.1-43.3); Cord Venous Blood pH 7.36 (7.20-7.44); O2 Saturation Cord Venous Bld < 60.0 % (<68)
[2021-08-09 23:09] LABS: Base Excess Cord Arterial Bld -1.7 mEq/L (-9-1.8); CO2 Cord Arterial Blood 57 mmHg (39.1-73.5); HCO3 Cord Arterial Blood 26 mmol/L (19.7-28.5); PO2 Cord Arterial Blood 10 mmHg (4.1-31.7); pH Cord Arterial Blood 7.28 (7.1-7.38)
[2021-08-09] MEDS ORDERED: BENZOCAINE 20% AER SPR 82.5 GM CAN EXT PRN (23:13)
[2021-08-09] MEDS ORDERED: HYDROCORTISONE ACETATE 25 MG SUPP PR PRN (23:13)
[2021-08-09] MEDS ORDERED: SENNA 8.6 MG TAB PO PRN (23:13)
[2021-08-09] MEDS ORDERED: MAGNESIUM HYDROXIDE SUSP 30 ML UDC PO PRN (23:13)
[2021-08-09] MEDS ORDERED: SUPERCREAM 0.870% 15 GM JAR EXT PRN (23:13)
[2021-08-09] MEDS ORDERED: DIPHTHERIA/TETANUS/PERTUSSIS 0.5 ML SYR/VIAL IM ONE (23:13)
[2021-08-09] MEDS ORDERED: IBUPROFEN 600 MG TAB PO PRN (23:13)
[2021-08-09] MEDS: MoRPHine SULFATE 2 MG/ML CARP IV PRN (23:22)
[2021-08-09] MEDS: HYDROmorphone INJ 0.5 MG/0.5 ML SYR IV PRN (23:49)
[2021-08-10] MEDS: MEPERIDINE HCL 25 MG/ML CARP/VIAL IV PRN ×4 (00:29→10:03)
--- NOTE | 2021-08-10 00:29 | Anesthesiology Progress Note ---
Date of Service August 10, 2021 Anesthesia Post Procedure Vital Signs Vital Signs: Temp Pulse Resp BP Pulse Ox 08/10/21 00:24 75 100 08/10/21 00:19 73 100 08/10/21 00:18 70 113/55 L 08/10/21 00:14 76 100 08/10/21 00:09 77 100 08/10/21 00:08 75 107/55 L 08/10/21 00:04 77 100 08/09/21 23:59 83 100 08/09/21 23:56 79 116/57 L 08/09/21 23:54 81 100 08/09/21 23:53 222/128 H 08/09/21 23:50 100 H 176/123 H 08/09/21 23:49 79 18 100 08/09/21 23:44 79 100 08/09/21 23:41 83 84 L 08/09/21 23:40 127/64 08/09/21 23:39 85 18 100 08/09/21 23:35 180/96 H 08/09/21 23:34 88 97 08/09/21 23:32 88 94 08/09/21 23:29 98 H 20 91 08/09/21 23:28 224/113 H 08/09/21 23:26 89 92 08/09/21 23:25 99 H 218/122 H 08/09/21 23:24 82 194/132 H 08/09/21 23:23 91 H 99 08/09/21 23:19 90 18 156/118 H 93 08/09/21 23:18 87 96 08/09/21 23:13 87 97 08/09/21 23:09 36.8 C 80 18 89/65 L 08/09/21 23:08 80 100 08/09/21 21:26 66 123/76 08/09/21 19:12 73 139/64 08/09/21 19:11 36.9 C 18 08/09/21 18:00 18 08/09/21 16:47 80 115/76 08/09/21 16:46 36.8 C 18 Pain Intensity Bilateral Lower Abdomen: Pain Intensity: 7 Transfer of Care Handoff Completed per policy Notes Mental Status: alert / awake / arousable and participated in evaluation Patient Amnestic to Procedure: Yes Nausea / Vomiting: adequately controlled Pain: adequately controlled Airway Patency, RR, SpO2: stable & adequate BP & HR: stable & adequate Hydration State: stable & adequate Neuraxial Anesthesia: was administered and sensory block is resolving Anesthetic Complications: no major complications apparent
[2021-08-10] MEDS ORDERED: miSOPROStoL 200 MCG TAB PR ONE (00:41)
[2021-08-10] MEDS ORDERED: OXYTOCIN 10 UNITS/ML VIAL IM ONE (00:41)
[2021-08-10] MEDS: OXYTOCIN 20 UNITS in LACTATED RINGER'S 1,000 ML IV SCH ×2 (01:20→09:46)
[2021-08-10] MEDS ORDERED: ceFAZolin 2000MG 2,000 MG/15 ML SYR IV SCH (06:00)
[2021-08-10] MEDS ORDERED: CITRIC ACID/SODIUM CITRATE 15 ML UDC PO SCH (06:00)
--- NOTE | 2021-08-10 06:20 | Operative Report (OR) ---
DATE OF PROCEDURE: 08/09/2021 INDICATION FOR SURGERY: This is a 30-year-old G2, P1 at term, prior section, who presented to labor and delivery for labor check. She was found to be kelechi every 1 to 2 minutes. [place] on was therefore made to proceed with anticipated section. PREOPERATIVE DIAGNOSES: 1. at term. 2. Previous section, wishes to have repeat section. SURGEON: Qasim Flaherty MD. MILK DRYING MACHINE OPERATOR: Oksana Arzola RN. ESTIMATED BLOOD LOSS: 600 mL. INTRAVENOUS FLUIDS: 800 mL URINE OUTPUT: 100 mL of clear urine at the end of the procedure. PROCEDURE: Repeat section. FINDINGS: Normal female escutcheon. Laparotomy findings uterus, adnexa appeared grossly normal. Th e patient had moderate adhesions, which were easily dissected without difficulty. Infant delivered. Weight and Apgars in the pediatric record. SPECIMEN: Cord blood, cord gas and placenta. DRAINS: Vargas catheter. COMPLICATIONS: None. DESCRIPTION OF PROCEDURE: The patient was taken to the operating room where she was prepped and drap ed in normal sterile fashion. Pfannenstiel incision was made with a scalpel and carried down through the old scar down to the fascia. Fascia was incised in the midline and extended laterally on both s ides. Fascia was sharply dissected off the rectus abdominis muscle. Peritoneum was identified and e ntered sharply. Once inside the abdomen, Yash retractor was placed for retraction. Dissection of the vesicouterine peritoneum was performed without difficulty. A low transverse incision was made on the lower segment of the uterus and extended laterally on both sides. Infant was delivered. Cord w as clamped and cut, handed over to the waiting pediatric team. Details of 's weight and Apgars are in the pediatric record. Placenta was manually removed. Uterus was exteriorized and cleared of all clots and debris. Uterus was closed in two layers with Vicryl suture. There was good hemostasi s. Uterus was returned to the abdominal cavity and copious amount of irrigation used to irrigate the abdomen. Peritoneum was closed with a plain suture. Fascia was closed in a running fashion with Vi cryl stitch. Subcutaneous space was irrigated and approximated with plain suture and the skin was cl osed with alden. All instruments were removed from the abdomen and accounted for x2 including sponges, needles, and re tractors. The patient is sent to recovery room in stable condition. Job ID: [id number]
[2021-08-10] MEDS: HYDROmorphone INJ 0.5 MG/0.5 ML SYR IV PRN (06:27)
[2021-08-10 06:50] LABS: Basophils # (auto) 0.03 K/uL (0-0.2); Basophils % (auto) 0.2 %; Eosinophils # (auto) 0.05 K/uL (0-0.5); Eosinophils % (auto) 0.3 %; Hematocrit (blood only) 24.4 % (37-47); Hemoglobin 8.4 g/dL (12.0-16.0); Immature Granulocytes # (auto) 0.05 K/uL (0.00-0.02); Immature Granulocytes % (auto) 0.3 %; Lymphocytes % (auto) 22.1 %; Mean Corpuscular Hemoglobin 28.1 pg (25-34); Mean Corpuscular Hgb Conc 34.4 g/dL (32-36); Mean Corpuscular Volume 81.6 fL (80-100); Mean Platelet Volume 10.2 fL (7.4-10.4); Monocytes # (auto) 1.49 K/uL (0.11-0.59); Monocytes % (auto) 10.3 %; Neutrophils # (auto) 9.68 K/uL (1.4-6.5); Neutrophils % (auto) 66.8 %; Platelet Count 216 K/uL (130-400); RDW Coefficient of Variation 15.1 % (11.5-14.5); RDW Standard Deviation 44.4 fL (36.4-46.3); Red Blood Count 2.99 M/uL (4.2-5.4)
[2021-08-10] MEDS ORDERED: FERROUS SULFATE 325 MG TAB PO SCH (08:00)
[2021-08-10] MEDS: SIMETHICONE 80 MG CHEW PO SCH ×4 (08:22→20:39)
[2021-08-10] MEDS: PRENATAL VITAMIN 1 TAB PO SCH (08:22)
[2021-08-10] MEDS: DOCUSATE SODIUM 100 MG CAP PO SCH ×2 (08:22→20:38)
[2021-08-10] MEDS: MoRPHine SULFATE 2 MG/ML CARP IV PRN (08:31)
[2021-08-10] MEDS ORDERED: ACETAMINOPHEN 1000 MG/100 ML IV IV PRN (09:47)
--- NOTE | 2021-08-10 09:54 | Obstetrical Progress Note ---
Date of Service August 10, 2021 Assessment & Plan Admission and Anticipated Discharge Date Admission Date: August 09, 2021 Subjective Patient is seen and examined. She feels sore around incision. Pain is not under control with 25 mg of Demerol. IV Toradol was not ordered due to h/o Chron's disease Not OOB yet. Tolerating clear diet with out N&V Bleeding is minimal No fever/ chills/ CP/ SOB/ N&V/ Leg pain Breast and bottle feeding without problems Vital Signs Temp Pulse Pulse Resp BP BP Pulse Ox 08/10/21 06:05 18 97 08/10/21 05:00 16 97 08/10/21 04:25 37.5 C 71 18 111/66 98 08/10/21 03:45 18 97 08/10/21 02:15 37.4 C 83 18 117/71 97 08/10/21 01:40 18 100 08/10/21 01:29 73 99 08/10/21 01:24 72 98 08/10/21 01:19 75 100 08/10/21 01:16 75 112/59 L 08/10/21 01:14 71 100 08/10/21 01:09 37.7 C H 74 18 100 08/10/21 01:04 76 100 08/10/21 00:59 71 100 08/10/21 00:56 72 93/54 L 08/10/21 00:54 75 100 08/10/21 00:49 76 100 08/10/21 00:44 74 112/56 L 100 08/10/21 00:39 84 18 100 08/10/21 00:34 73 100 08/10/21 00:29 73 100 08/10/21 00:28 72 107/60 08/10/21 00:24 75 100 08/10/21 00:19 73 100 08/10/21 00:18 70 113/55 L 08/10/21 00:14 76 100 08/10/21 00:09 77 18 100 08/10/21 00:08 75 107/55 L 08/10/21 00:04 77 100 08/09/21 23:59 83 18 100 08/09/21 23:56 79 116/57 L 08/09/21 23:54 81 100 08/09/21 23:53 222/128 H 08/09/21 23:50 100 H 176/123 H 08/09/21 23:49 79 18 100 08/09/21 23:44 79 100 08/09/21 23:41 83 84 L 08/09/21 23:40 127/64 08/09/21 23:39 85 18 100 08/09/21 23:35 180/96 H 08/09/21 23:34 88 97 08/09/21 23:32 88 94 08/09/21 23:29 98 H 20 91 08/09/21 23:28 224/113 H 08/09/21 23:26 89 92 08/09/21 23:25 99 H 218/122 H 08/09/21 23:24 82 194/132 H 08/09/21 23:23 91 H 99 08/09/21 23:19 90 18 156/118 H 93 08/09/21 23:18 87 96 08/09/21 23:13 87 97 08/09/21 23:09 36.8 C 80 18 89/65 L 08/09/21 23:08 80 100 Intake & Output 08/09/21 08/10/21 08/10/21 22:59 06:59 14:59 Intake Total 1289.583 / 2089.583 800 / 2089.583 1002 / 1002 Output Total 525 / 525 400 / 400 Balance 1289.583 / 1564.583 275 / 1564.583 602 / 602 Weight 71.668 kg Intake: IV 1289.583 / 3886.481 0724 / 1002 Lactated Ringer's 1,000 ml @ 1289.583 / 1289.583 125 mls/hr IV .Q8H PRN Rx#: [id number] Oxytocin 20 units In Lactated 1002 / 1002 Ringer's 1,000 ml @ 125 mls/hr IV .Q8H1M DEYSI Rx#:[id number] IV Perioperative 800 / 800 Output: Urine Amount (Catheter) 525 / 525 400 / 400 Vargas/Indwelling 525 / 525 400 / 400 Other: Weight Measurement Method Last Office Visit PE: General: Alert, orientedx3, NAD CVS: S1S2 RRR Lungs; CTAB Abd: soft, NT, ND, BS+, fundus firm, below Umbilicus IncisionDressing: Clean, dry, intact Perineum intact, Lochia rubra minimal Ext; NT, no edema AP: 30 yo s/p C Section, pod# 1 VSS Afebrile inadequate pain control Will adjust meds, add IV Tylenol Continue routine postop care Encourage ambulation, PO intake All questions were answered Results & Data ([facility]) Vital Signs (Past 12 Hours) Vital Signs Temp Pulse Pulse Resp BP BP Pulse Ox 08/10/21 06:05 18 97 08/10/21 05:00 16 97 08/10/21 04:25 37.5 C 71 18 111/66 98 08/10/21 03:45 18 97 08/10/21 02:15 37.4 C 83 18 117/71 97 08/10/21 01:40 18 100 08/10/21 01:29 73 99 08/10/21 01:24 72 98 08/10/21 01:19 75 100 08/10/21 01:16 75 112/59 L 08/10/21 01:14 71 100 08/10/21 01:09 37.7 C H 74 18 100 08/10/21 01:04 76 100 08/10/21 00:59 71 100 08/10/21 00:56 72 93/54 L 08/10/21 00:54 75 100 08/10/21 00:49 76 100 08/10/21 00:44 74 112/56 L 100 08/10/21 00:39 84 18 100 08/10/21 00:34 73 100 08/10/21 00:29 73 100 08/10/21 00:28 72 107/60 08/10/21 00:24 75 100 08/10/21 00:19 73 100 08/10/21 00:18 70 113/55 L 08/10/21 00:14 76 100 08/10/21 00:09 77 18 100 08/10/21 00:08 75 107/55 L 08/10/21 00:04 77 100 08/09/21 23:59 83 18 100 08/09/21 23:56 79 116/57 L 08/09/21 23:54 81 100 08/09/21 23:53 222/128 H 08/09/21 23:50 100 H 176/123 H 08/09/21 23:49 79 18 100 08/09/21 23:44 79 100 08/09/21 23:41 83 84 L 08/09/21 23:40 127/64 08/09/21 23:39 85 18 100 08/09/21 23:35 180/96 H 08/09/21 23:34 88 97 08/09/21 23:32 88 94 08/09/21 23:29 98 H 20 91 08/09/21 23:28 224/113 H 08/09/21 23:26 89 92 08/09/21 23:25 99 H 218/122 H 08/09/21 23:24 82 194/132 H 08/09/21 23:23 91 H 99 08/09/21 23:19 90 18 156/118 H 93 08/09/21 23:18 87 96 08/09/21 23:13 87 97 08/09/21 23:09 36.8 C 80 18 89/65 L 08/09/21 23:08 80 100
[2021-08-10] MEDS ORDERED: ACETAMINOPHEN 1,000 MG/100 ML VIAL IV PRN (10:00)
[2021-08-10] MEDS ORDERED: diphenhydrAMINE 50 MG/ML VIAL IV PRN (15:39)
[2021-08-10] MEDS ORDERED: diphenhydrAMINE Capsule 25 MG CAP PO PRN (15:39)
[2021-08-10] MEDS ORDERED: PROMETHAZINE HCL 25 MG in SODIUM CHLORIDE 0.9% 50 ML IV PRN (15:39)
[2021-08-10] MEDS ORDERED: ZOLPIDEM TARTRATE 5 MG TAB PO PRN (15:39)
[2021-08-10] MEDS: oxyCODONE/ACETAMINOPHEN 5mg/325mg TAB PO PRN ×2 (15:52→20:50)
[2021-08-10] MEDS ORDERED: MEPERIDINE HCL 25 MG/ML CARP/VIAL IV PRN (18:52)
[2021-08-10] MEDS ORDERED: Nursing to Pharmacy Communication SCH (19:00)
[2021-08-10] MEDS: MEPERIDINE HCL 50 MG/ML CARP IV PRN ×2 (19:10→23:15)
[2021-08-10] MEDS ORDERED: bisacodyL 5 MG TABEC PO SCH (20:00)
[2021-08-11] MEDS: oxyCODONE/ACETAMINOPHEN 5mg/325mg TAB PO PRN ×3 (02:03→10:15)
[2021-08-11] MEDS: FERROUS SULFATE 325 MG TAB PO SCH ×2 (03:02→08:21)
[2021-08-11] MEDS: MEPERIDINE HCL 50 MG/ML CARP IV PRN (03:49)
[2021-08-11 07:53] LABS: Hematocrit (blood only) 25.6 % (37-47); Hemoglobin 8.9 g/dL (12.0-16.0)
[2021-08-11] MEDS: SIMETHICONE 80 MG CHEW PO SCH ×3 (08:20→17:53)
[2021-08-11] MEDS: PRENATAL VITAMIN 1 TAB PO SCH (08:21)
[2021-08-11] MEDS: DOCUSATE SODIUM 100 MG CAP PO SCH ×2 (08:21→19:32)
--- NOTE | 2021-08-11 10:49 | Obstetrical Progress Note ---
Date of Service August 11, 2021 Subjective Ambulation: ambulating normally Voiding: no voiding problems Passing Gas:: Yes Diet Tolerance:: regular diet Feeding Type:: breast feeding Current Pain Level(1-10): 0 doing well POD#2 Physical Exam Constitutional WD/WN, vitals as above comfortable abdomen soft and non-tender fundus firm incision c/d/i tent d/c in AM Results & Data ([facility]) Vital Signs (Past 12 Hours) Vital Signs Temp Pulse Resp BP Pulse Ox 08/11/21 07:43 36.5 C 65 18 106/71 98 08/10/21 23:15 36.7 C 71 18 107/74 97 Laboratory Results 08/09/21 08/09/21 08/09/21 20:35 20:35 20:43 WBC 10.31 RBC 3.77 L Hgb 10.5 L Hct 30.3 L MCV 80.4 MCH 27.9 MCHC 34.7 RDW Std Deviation 44.5 RDW Coeff of Kervin 15.1 H Plt Count 259 MPV 9.8 Immature Gran % (Auto) 0.5 Neut % (Auto) 70.4 Lymph % (Auto) 22.6 Bea[place]gard % (Auto) 5.8 Eos % (Auto) 0.5 Baso % (Auto) 0.2 Neut # (Auto) 7.26 H Lymph # (Auto) 2.33 [place] # (Auto) 0.60 H Eos # (Auto) 0.05 Baso # (Auto) 0.02 Immature Gran # (Auto) 0.05 H Cord ABG pH Cord ABG pCO2 Cord ABG pO2 Cord ABG HCO3 Cord ABG Base Excess Cord ABG O2 Sat Cord VBG pH Cord VBG pCO2 Cord VBG pO2 Cord VBG HCO3 Cord VBG Base Excess Cord VBG O2 Sat Barometric Pressure Blood Gas Comments COVID-19 Eval Order Covid19 IDNow atMMIC SARS-CoV-2, RNA, NAAT NEGATIVE 08/09/21 08/09/21 08/10/21 22:27 22:27 06:25 WBC 14.50 H RBC 2.99 L Hgb 8.4 L Hct 24.4 L MCV 81.6 MCH 28.1 MCHC 34.4 RDW Std Deviation 44.4 RDW Coeff of Kervin 15.1 H Plt Count 216 MPV 10.2 Immature Gran % (Auto) 0.3 Neut % (Auto) 66.8 Lymph % (Auto) 22.1 [place] % (Auto) 10.3 Eos % (Auto) 0.3 Baso % (Auto) 0.2 Neut # (Auto) 9.68 H Lymph # (Auto) 3.20 [place] # (Auto) 1.49 H Eos # (Auto) 0.05 Baso # (Auto) 0.03 Immature Gran # (Auto) 0.05 H Cord ABG pH 7.28 Cord ABG pCO2 57 Cord ABG pO2 10 Cord ABG HCO3 26 Cord ABG Base Excess -1.7 Cord ABG O2 Sat < 60.0 Cord VBG pH 7.36 Cord VBG pCO2 45 Cord VBG pO2 21 Cord VBG HCO3 25 Cord VBG Base Excess -1.0 Cord VBG O2 Sat < 60.0 Barometric Pressure 735.8 Blood Gas Comments INFANT A INFANT A COVID-19 Eval Order SARS-CoV-2, RNA, NAAT 08/11/21 07:24 WBC RBC Hgb 8.9 L Hct 25.6 L MCV MCH MCHC RDW Std Deviation RDW Coeff of Kervin Plt Count MPV Immature Gran % (Auto) Neut % (Auto) Lymph % (Auto) [place] % (Auto) Eos % (Auto) Baso % (Auto) Neut # (Auto) Lymph # (Auto) [place] # (Auto) Eos # (Auto) Baso # (Auto) Immature Gran # (Auto) Cord ABG pH Cord ABG pCO2 Cord ABG pO2 Cord ABG HCO3 Cord ABG Base Excess Cord ABG O2 Sat Cord VBG pH Cord VBG pCO2 Cord VBG pO2 Cord VBG HCO3 Cord VBG Base Excess Cord VBG O2 Sat Barometric Pressure Blood Gas Comments COVID-19 Eval Order SARS-CoV-2, RNA, NAAT
[2021-08-11] MEDS: ONDANSETRON INJ 2 MG/ML 2 ML VIAL IV PRN ×3 (10:57→22:06)
[2021-08-11] MEDS ORDERED: oxyCODONE/ACETAMINOPHEN 10-325 TAB PO PRN (13:01)
[2021-08-11] MEDS ORDERED: oxyCODONE/ACETAMINOPHEN 10-325 TAB ONE (13:11)
[2021-08-11] MEDS ORDERED: MoRPHine SULFATE 2 MG/ML CARP IV STA ×2 (17:33→19:39)
[2021-08-11 17:57] LABS: Basophils # (auto) 0.03 K/uL (0-0.2); Basophils % (auto) 0.2 %; Eosinophils % (auto) 0.6 %; Hematocrit (blood only) 26.8 % (37-47); Hemoglobin 9.3 g/dL (12.0-16.0); Immature Granulocytes # (auto) 0.14 K/uL (0.00-0.02); Immature Granulocytes % (auto) 0.8 %; Lymphocytes # (auto) 2.72 K/uL (1.2-3.4); Lymphocytes % (auto) 15.5 %; Mean Corpuscular Volume 80.7 fL (80-100); Mean Platelet Volume 9.3 fL (7.4-10.4); Monocytes # (auto) 1.32 K/uL (0.11-0.59); Monocytes % (auto) 7.5 %; Neutrophils # (auto) 13.23 K/uL (1.4-6.5); Neutrophils % (auto) 75.4 %; Platelet Count 266 K/uL (130-400); RDW Coefficient of Variation 15.4 % (11.5-14.5); RDW Standard Deviation 44.9 fL (36.4-46.3); Red Blood Count 3.32 M/uL (4.2-5.4); White Blood Count 17.54 K/uL (4.8-10.8)
[2021-08-11 18:21] LABS: BUN Creatinine Ratio 10.8 (10-20); Calcium 8.2 mg/dl (8.5-10.1); Creatinine Clr Calc Pharmacy 125.2 ml/min; Est GFR (African American) 142.2 ml/min; Est GFR (Non-African American) 122.7 ml/min
[2021-08-11 18:24] LABS: Albumin Globulin Ratio 0.5 (0.9-2); Bilirubin,Total 0.3 mg/dl (0.2-1); Globulin 4.4 gm/dl (2.5-4.0); Total Protein 6.4 gm/dl (6.4-8.2)
--- NOTE | 2021-08-11 18:24 | XRay Report ---
KUB HISTORY: Acute lower abdominal pain with recent section abd pain COMPARISON: CT abdomen and pelvis 10/18/2020 FINDINGS: Cholecystectomy. Moderate gaseous distention of the large bowel. No definite bowel obstruct ion. No renal calculi. No ureteral calculi. Trace pneumoperitoneum. No pneumatosis identified. Trans versely oriented surgical clips of the pelvis. No unexpected opaque foreign body identified. No acute fracture. IMPRESSION: 1. Surgical clips of the lower pelvis compatible with recent section. Trace pneumoperitoneum is an expected finding considering recent surgery. 2. Gaseous distention of the colon suggestive of ileus. ACT 112: Negative or not required by law. The above report was generated using voice recognition software. It may contain grammatical, syntax o r spelling errors. Electronically signed by: Cj Castro M.D. 08/11/2021 6:22 PM
[2021-08-11 18:32] LABS: Mean Corpuscular Hgb Conc 34.7 g/dL (32-36)
[2021-08-11] MEDS ORDERED: MoRPHine SULFATE 2 MG/ML CARP IV PRN (18:44)
--- NOTE | 2021-08-11 18:44 | Consultation ---
Date of Consultation August 11, 2021 Assessment & Plan (1) Abdominal pain: (2) Ileus: (3) Hypokalemia: This is a 30-year-old female who has a known past medical history of Crohn's disease typically treated with Remicade, asthma, GERD, horseshoe kidney, history of pyelonephritis who is postop day 2 . Her postoperative course has been unremarkable except last evening she developed increasing upper abdominal pain. KUB: Ileus Pt with Leukocytosis, 17k, increased from 14k on 08/10 She does not meet SIRS/SEPSIS criteria Given abd pain and increased WBC w/ hx of Crohn's obtain CT a/p with IV contrast Urinalysis D/C Simethicone D/C Ferrous sulfate for now until bowels moving regularly Change colace to Senna S twice daily continue prn oxycodone, add IV dilaudid 0.5mg q6hr prn, avoid narcotics as much as possible in setting of Ileus unable to use nsaids due to recent surg hx of Crohns IVF LR + KCL KUB In a.m. Hypokalemia replete with 10meq KCL IV x 2 IVF LR @125cc/hr + 20meq KCL repeat in a.m. Dispo: OB floor, remain hospitalized until abd pain subsides and is passing flatus/stool FULL CODE Pt was seen and examined in collaboration with Dr. Castillo, please see addendum Thank you for this consultation. We will follow the patient with you during their hospital stay. You can reach a member of the [facility] Hospitalist Team 30/04 via hospitalist role on tiger text. Supervising Physician Co-Signing Physician Notes Pt was seen and examined. Agreed with Shayy POLO exam, assessment and plan. S/P day 2 then developed increasing upper abdominal pain. KUB showed surgical clips of the lower pelvis compatible with recent section. Trace pneumoperitoneum is an expected finding considering recent surgery. Gaseous distention of the colon suggestive of ileus. Illeus related to postop. Will do conservative management. Will continue IVF and bowel rest. Pain control. Will repeat KUB in am. Continue monitor closely. I performed a history and physical examination of the patient on 08/11/21, including specifically H&P. I have discussed the patient's management with the advanced practitioner. Please refer to the Shayy POLO note for the do cumented findings and plan of care. MD Anna History of Present Illness Requesting Physician: Dr. Miranda Reason for Consultation: Abdominal pain POD #2 Csection Attending Physician: Qasim Flaherty MD History of Present Illness This is a 30-year-old female who has a known past medical history of Crohn's disease typically treated with Remicade, asthma, GERD, horseshoe kidney, history of pyelonephritis who is postop day 2 . Her postoperative course has been unremarkable except last evening she developed increasing upper abdominal pain. Pain comes and goes and is improved with oxycodone. It is made worse with change in position specifically lying. Pain is mostly in the upper to middle abdomen and is superior to her incision. She does have incisional discomfort, but this pain is different. She describes the pain as waxing and waning, but at its worst sharp and stabbing. Her pain currently is 9 out of 10. She has not yet moved her bowels and has not passed flatus. She has tried to walk the halls, but this has not improved symptoms. She has chronic nausea for which she takes Zofran at home and feels her nausea is at baseline. She denies any vomiting but has been unable to tolerate oral intake. She is tolerating liquids. She denies any fever, chills, sweats, lightheadedness, dizziness, chest pain, shortness of breath, cough. She also complains of urinary urgency but denies hematuria, dysuria or urinary frequency. Allergies Allergy/AdvReac Type Severity Reaction Status Date / Time No Known Allergies Allergy ` Verified 03/16/21 17:02 Home Medications Medication Instructions Recorded Confirmed Type albuterol sulfate 90 mcg/actuation 2 puff INHALATION Q6H PRN 06/15/18 08/09/21 History aerosol inhaler (Ventolin HFA) ondansetron 8 mg disintegrating 8 mg PO .Q6-8H PRN 07/12/20 08/09/21 History tablet prenat.vits,niki,jex-ktkw-ypmkm 1 tab PO DAILY 08/01/21 08/09/21 History oxycodone-acetaminophen 10 mg-325 1 tab PO Q4H PRN #20 tab 08/12/21 Rx mg tablet potassium chloride 10 mEq 10 meq PO DAILY #30 cap 11/05/21 Rx capsule,extended release vits no.124-ferrous fum 1 tab PO DAILY@08 #90 tab 08/12/21 Rx 27 mg iron-folic acid 800 mcg tablet ( Vitamin) Patient History Medical History Anxiety Asthma uses PRN inh 1xwk on average Depression GERD (gastroesophageal reflux disease) IBS (irritable bowel syndrome) Sepsis Surgical History H/O cystoscopy History of adenoidectomy History of History of cholecystectomy History of colonoscopy History of colposcopy History of tonsillectomy History of tooth extraction Family History Grandmother Kidney stone Other History of No family history of adverse response to anesthesia Social History Smoking Status: Never smoker Second Hand Exposure: No; Hx Alcohol Use: No Hx Substance Use: No Preferred Language: Pashto Communication Ability: Effective 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 Required: No Beliefs That Will Affect Care: None marital status: Single Current Living Situation: Significant Other current occupation: [employer] Feels Safe at Home: Yes Assistive Devices: None Review of Systems Review of Systems: All systems reviewed & are unremarkable except as noted in HPI & below Physical Exam Physical Exam: Constitutional: WD/WN, vitals as above, appears in pain, sitting up in bed, pleasant, conversing easily Head: Normocephalic, Atraumatic Eyes: PERRL, conjunctivae normal, anicteric sclerae ENMT: external ear and nose normal, oropharynx normal Neck: trachea midline, no thyromegaly normal visual inspection Respiratory: normal respiratory effort, lungs clear to auscultation, no wheeze, rales, rhonchi. Normal insp/exp effort, no accessory muscle use Cardiovascular: RRR, no murmur, no edema Vessels: no JVD or carotid bruit Chest: normal inspection of chest Abdomen: diminished bowel sounds, soft, but tender umbilically, + rebound, no guarding or rigidity, no hepatosplenomegaly + pubic incision alden intact, clean dry, no erythema Musculoskeletal: no cyanosis or clubbing, extremities motor strength 5/5 Skin: no rashes, warm and dry normal turgor Neurologic: PERRL, EOMI, accommodation nl, no face palsy, no dysarthria CN's II-XI intact bilaterally and moves all extremities Psychiatric: A+Ox3, euthymic affect Lymphatic: no cervical or axillary lymphadenopathy : deferred Results & Data ([facility]) Vital Signs (Past 12 Hours) Vital Signs Temp Pulse Resp BP Pulse Ox 08/11/21 07:43 36.5 C 65 18 106/71 98 Laboratory Results Short CBC 08/11/21 08/11/21 Range/Units 07:24 17:48 WBC 17.54 H (4.8-10.8) K/uL Hgb 8.9 L 9.3 L (12.0-16.0) g/dL Hct 25.6 L 26.8 L (37-47) % Plt Count 266 (130-400) K/uL BMP 08/11/21 17:48 Sodium 138 Potassium 3.0 L Chloride 104 Carbon Dioxide 28 BUN 6 L Creatinine 0.57 L Glucose 98 Calcium 8.2 L Liver Function 08/11/21 Range/Units 17:48 Total Bilirubin 0.3 (0.2-1) mg/dl AST 14 L (15-37) U/L ALT 9 L (12-78) U/L Alkaline Phosphatase 142 H (45-117) U/L Albumin 2.0 L (3.4-5.0) gm/dl Diagnostic Findings KUB X-Ray 08/11/21 17:33 KUB HISTORY: Acute lower abdominal pain with recent section abd pain COMPARISON: CT abdomen and pelvis 10/18/2020 FINDINGS: Cholecystectomy. Moderate gaseous distention of the large bowel. No definite bowel obstruction. No renal calculi. No ureteral calculi. Trace pneumoperitoneum. No pneumatosis identified. Transversely oriented surgical clips of the pelvis. No unexpected opaque foreign body identified. No acute fracture. IMPRESSION: 1. Surgical clips of the lower pelvis compatible with recent section. Trace pneumoperitoneum is an expected finding considering recent surgery. 2. Gaseous distention of the colon suggestive of ileus. ACT 112: Negative or not required by law. The above report was generated using voice recognition software. It may contain grammatical, syntax or spelling errors. Electronically signed by: Cj Castro M.D. 08/11/2021 6:22 PM Medications Administered Current Inpatient Medications Benzocaine (Benzocaine 20% Aer Spr 82.5 Gm Can) 1 appln EXT UD PRN PRN Reason: use on skin as needed Stop: 09/08/21 23:12 Bisacodyl (Bisacodyl 10 Mg Supp) 10 mg LA PRN PRN PRN Reason: Constipation Stop: 09/10/21 23:12 Cocaine HCl (Supercream 0.870% 15 Gm Jar) 1 gm EXT UD PRN PRN Reason: hemmorrhoidal inflammation Stop: 08/23/21 23:12 Diphenhydramine HCl (Diphenhydramine Capsule 25 Mg Cap) 25 mg PO QID PRN PRN Reason: Itching Stop: 09/09/21 15:38 Diphenhydramine HCl (Diphenhydramine 50 Mg/Ml Vial) 25 mg IV QID PRN PRN Reason: Itching Stop: 09/09/21 15:38 Docusate Sodium (Docusate Sodium 100 Mg Cap) 100 mg PO DAILY@ DEYSI Stop: 09/09/21 07:59 Last Admin: 08/11/21 19:32 Dose: Not Given Documented by: Hydrocortisone (Hydrocortisone Acetate 25 Mg Supp) 25 mg LA BID PRN PRN Reason: Hemorrhoids Stop: 09/08/21 23:12 Lactated Ringer's (Lr) 1,000 mls @ 125 mls/hr IV .Q8H PRN; Protocol PRN Reason: L&D Protocol Stop: 09/08/21 17:17 Last Infusion: 08/09/21 21:30 Dose: 999 mls/hr Documented by: Lactated Ringer's (Lr) 1,000 mls @ 125 mls/hr IV .Q8H DEYSI Stop: 09/08/21 21:59 Lactated Ringer's (Lr) 1,000 mls @ 125 mls/hr IV .Q8H DEYSI Stop: 09/08/21 23:14 Promethazine HCl 25 mg/ Sodium (Chloride) 51 mls @ 204 mls/hr IV Q4H PRN PRN Reason: Nausea And Vomiting Stop: 09/09/21 15:38 Oxytocin 20 units/ Lactated (Ringer's) 1,002 mls @ 125 mls/hr IV .Q8H1M [facility] Stop: 09/08/21 23:29 Last Infusion: 08/10/21 15:53 Dose: 0 mls/hr Documented by: Acetaminophen (Ofirmev) 1,000 mg in 100 mls @ 400 mls/hr IV Q8H PRN; Protocol PRN Reason: Pain Stop: 08/13/21 09:59 Last Admin: 08/10/21 12:39 Dose: 400 mls/hr Documented by: Potassium Chloride 20 meq/ (Lactated Ringer's) 1,010 mls @ 80 mls/hr IV .[id number] [facility] Stop: 09/10/21 18:59 Last Admin: 08/11/21 19:28 Dose: 80 mls/hr Documented by: Potassium Chloride (K Ra / Wtr) 10 meq in 100 mls @ 100 mls/hr IV Q1H [facility] Stop: 08/11/21 20:59 Ibuprofen (Ibuprofen 600 Mg Tab) 600 mg PO Q4H PRN PRN Reason: Pain Stop: 09/08/21 23:12 Magnesium Hydroxide (Magnesium Hydroxide Susp 30 Ml Udc) 30 ml PO HS PRN PRN Reason: Constipation Stop: 09/08/21 23:12 Last Admin: 08/11/21 12:31 Dose: 30 ml Documented by: Meperidine HCl (Meperidine Hcl 25 Mg/Ml Carp/Vial) 25 mg IV Q4H PRN PRN Reason: PAIN SCALE 1-5 Stop: 08/24/21 18:51 Meperidine HCl (Meperidine Hcl 50 Mg/Ml Carp) 50 mg IV Q4H PRN PRN Reason: PAIN SCALE 6-10 Stop: 08/24/21 18:52 Last Admin: 08/11/21 03:49 Dose: 50 mg Documented by: Morphine Sulfate (Morphine Sulfate 2 Mg/Ml Carp) 2 mg IV Q2H PRN PRN Reason: Severe Pain Stop: 08/25/21 18:43 Ondansetron HCl (Ondansetron Inj 2 Mg/Ml 2 Ml Vial) 4 mg IV Q4H PRN PRN Reason: Nausea And Vomiting Stop: 09/09/21 15:38 Last Admin: 08/11/21 16:16 Dose: 4 mg Documented by: Oxycodone/Acetaminophen (Oxycodone/Acetaminophen 10-325 Tab) 1 tab PO Q4H PRN PRN Reason: Pain Stop: 08/25/21 13:00 Prenat Multivit/Compressed Gas Equipment Mechanic/Iron/Folic Ac ( Vitamin 1 Tab) 1 tab PO DAILY@08 DEYSI Stop: 09/09/21 07:59 Last Admin: 08/11/21 08:21 Dose: 1 tab Documented by: Sennosides (Senna 8.6 Mg Tab) 17.2 mg PO HS PRN PRN Reason: Constipation Stop: 09/08/21 23:12 Zolpidem Tartrate (Zolpidem Tartrate 5 Mg Tab) 5 mg PO HS PRN PRN Reason: Sleep Stop: 09/09/21 15:38
[2021-08-11] MEDS: POTASSIUM CHLORIDE 20 MEQ in LACTATED RINGER'S 1,000 ML IV SCH (19:28)
[2021-08-11] MEDS: POTASSIUM CHLORIDE / WTR 10 MEQ/100 ML PLCT IV SCH ×2 (19:30→22:03)
[2021-08-11] MEDS ORDERED: OPTIRAY 320 100ml IV ONE ×2 (20:25→20:43)
--- NOTE | 2021-08-11 20:58 | CT Scan Report ---
ABDOMEN AND PELVIS CT WITH IV CONTRAST CT DOSE: 299.90 mGy.cm HISTORY: Acute lower abdominal and pelvic pain status post section. abd pain TECHNIQUE: Multiaxial CT images of the abdomen and pelvis were performed following the IV administrat ion of 92 cc of Optiray, A dose lowering technique was utilized adhering to the principles of ALARA. COMPARISON STUDY: KUB of same day, CT abdomen and pelvis 10/18/2020 FINDINGS: Trace pleural effusions. The imaged inferior cardiac chambers are unremarkable. Mild hepatomegaly wit h hepatic steatosis. The spleen measures the upper limits of normal in size. The pancreas and adrenal glands are unremarkable. Cholecystectomy. Horseshoe kidney. 3 mm nonobstructing calculus of the left moiety redemonstrated. Cyst of the right kidney measure up to 1.3 cm. Mild symmetric hydronephrosis without obstructing lesion identified. Urinary bladder wall thickening with partial distention. Enlarged heterogeneous post gravid appearance of the uterus with air and debris is within the endomet rial canal and also within the scar the lower uterine segment. Air, inflammatory stranding and small amount of free fluid is noted within the intraperitoneal extraperitoneal tissues anterior t o the lower uterine segment. No drainable fluid collection. Air and edema is also noted within the re ctus sheath and adjacent subcutaneous tissues with anterior cutaneous skin alden. Small fat and flu id filled periumbilical hernia. Small volume pneumoperitoneum. Air and fluid-filled distended large and small bowel without transition point identified. Layering hy perdense material within the cecum and proximal appendix. No CT evidence of acute appendicitis. Dupli cated IVC. Unremarkable aorta. No acute fracture. IMPRESSION: 1. Enlarged heterogeneous post gravid appearance of the uterus with air and debris present within the endometrial canal and scar of the lower uterine segment. Additional air with inflammatory stranding and trace free fluid is present within the intraperitoneal and extraperitoneal tissues ante rior to the lower uterus, likely expected postoperative changes. No discrete postoperative fluid neelam ection. 2. Air and fluid-filled mildly distended loops of large and small bowel without transition point is s uggestive of ileus. 3. Trace pleural effusions. 4. Horseshoe kidney with mild symmetric hydronephrosis. 5. 3 mm nonobstructing calculus of the left kidney moiety redemonstrated. ACT 112: Negative or not required by law. The above report was generated using voice recognition software. It may contain grammatical, syntax o r spelling errors. Electronically signed by: Cj Castro M.D. 08/11/2021 8:56 PM
--- NOTE | 2021-08-11 21:15 | Obstetrical Progress Note ---
Date of Service August 11, 2021 Assessment & Plan (1) Hypokalemia: (2) Ileus: (3) : Continue IV fluids NPO Medical consult noted and appreciated Day #:: 2 Subjective Ambulation: limited ambulation Passing Gas:: No Diet Tolerance:: NPO Lochia:: Small still in pain Physical Exam Constitutional WD/WN, vitals as above + ill appearing and + in distress abdomen is soft but with palpation has pain incision c/d/i no edema of legss neg Gerardo's Results & Data ([facility]) Vital Signs (Past 12 Hours) Vital Signs Temp Pulse Resp BP Pulse Ox 08/11/21 16:20 36.4 C L 87 20 108/74 99
[2021-08-11] MEDS: DOCUSATE SODIUM/SENNA 50/8.6MG TAB PO SCH (21:17)
[2021-08-11 21:46] LABS: Appearance Urine Clear (Clear); Bacteria Urine Automated Negative (Negative); Bilirubin Urine Negative (Negative); Blood Urine 3+ (Negative); Cast Urine Automated 0 /lpf (0-5); Color Urine Yellow; Glucose Urine UA Negative (Negative); Ketones Urine Trace (Negative); Leukocyte Esterase Urine Negative (Negative); Nitrite Urine Negative (Negative); Protein Urine Negative (Negative); Specific Gravity Urine 1.019 (1.000-1.030); Urobilinogen Urine Negative (Negative)
[2021-08-11] MEDS: HYDROmorphone INJ 0.5 MG/0.5 ML SYR IV PRN (22:02)
[2021-08-11 22:06] LABS: Amphetamines+Metham, Urine Neg (Neg); Barbiturates, Urine Neg (Neg); Benzodiazepine, Urine Neg (Neg); Cocaine, Urine Neg (Neg); MDMA (Ecstacy), Urine Neg (Neg); Methadone, Urine Neg (Neg); Opiate, Urine Pos (Neg); Phencyclidine, Urine Neg (Neg)
[2021-08-11] MEDS ORDERED: bisacodyL 10 MG SUPP PR PRN (23:13)
[2021-08-12] MEDS: HYDROmorphone INJ 0.5 MG/0.5 ML SYR IV PRN ×2 (03:37→09:35)
[2021-08-12 06:56] LABS: Basophils # (auto) 0.03 K/uL (0-0.2); Basophils % (auto) 0.2 %; Eosinophils # (auto) 0.16 K/uL (0-0.5); Eosinophils % (auto) 1.1 %; Hematocrit (blood only) 24.7 % (37-47); Hemoglobin 8.3 g/dL (12.0-16.0); Immature Granulocytes # (auto) 0.14 K/uL (0.00-0.02); Lymphocytes # (auto) 3.05 K/uL (1.2-3.4); Lymphocytes % (auto) 20.7 %; Mean Corpuscular Hemoglobin 27.9 pg (25-34); Mean Corpuscular Hgb Conc 33.6 g/dL (32-36); Mean Corpuscular Volume 82.9 fL (80-100); Mean Platelet Volume 9.8 fL (7.4-10.4); Monocytes # (auto) 1.05 K/uL (0.11-0.59); Monocytes % (auto) 7.1 %; Neutrophils % (auto) 69.9 %; Platelet Count 250 K/uL (130-400); RDW Coefficient of Variation 15.6 % (11.5-14.5); RDW Standard Deviation 46.5 fL (36.4-46.3); Red Blood Count 2.98 M/uL (4.2-5.4); White Blood Count 14.73 K/uL (4.8-10.8)
[2021-08-12 07:27] LABS: Alanine Aminotransferase 8 U/L (12-78); Albumin Level 1.8 gm/dl (3.4-5.0); Aspartate Aminotransferase 13 U/L (15-37); BUN Creatinine Ratio 13.2 (10-20); Blood Urea Nitrogen 6 mg/dl (7-18); Calcium 7.7 mg/dl (8.5-10.1); Carbon Dioxide 24 mmol/L (21-32); Chloride 107 mmol/L (98-107); Creatinine Clr Calc Pharmacy 158.6 ml/min; Est GFR (African American) > 150.0 ml/min; Est GFR (Non-African American) 132.6 ml/min; Glucose 77 mg/dl (70-99); Magnesium 2.2 mg/dl (1.8-2.4); Potassium 3.4 mmol/L (3.5-5.1); Sodium 137 mmol/L (136-145)
[2021-08-12 07:30] LABS: Albumin Globulin Ratio 0.5 (0.9-2); Alkaline Phosphatase 121 U/L (45-117); Bilirubin,Total 0.4 mg/dl (0.2-1); Globulin 3.9 gm/dl (2.5-4.0); Total Protein 5.7 gm/dl (6.4-8.2)
[2021-08-12] MEDS ORDERED: POTASSIUM CHLORIDE / WTR 10 MEQ/100 ML PLCT IV SCH (08:30)
[2021-08-12] MEDS: DOCUSATE SODIUM/SENNA 50/8.6MG TAB PO SCH (09:00)
[2021-08-12] MEDS: PRENATAL VITAMIN 1 TAB PO SCH (09:34)
--- NOTE | 2021-08-12 09:40 | Obstetrical Progress Note ---
Date of Service August 12, 2021 Assessment & Plan Admission and Anticipated Discharge Date Admission Date: August 09, 2021 Subjective Patient is seen and examined. She feels better but complains of abdominal pain. Pain is under control with IV meds. Found to have ileus last night and was put on IV pain meds and NPO Ambulating without dizziness Voiding without difficulty Was Tolerating regular diet with out N&V but has not eaten much since delivery, no apetite Flatus + started this morning BM + very small this morning Bleeding is minimal No fever/ chills/ CP/ SOB/ N&V/ Leg pain Breast feeding without problems Vital Signs Temp Pulse Resp BP Pulse Ox 08/12/21 07:49 36.9 C 68 20 129/95 99 08/12/21 03:42 36.7 C 66 20 132/80 08/11/21 23:30 36.6 C 78 18 133/76 08/11/21 21:03 36.7 C 82 18 123/77 99 08/11/21 16:20 36.4 C L 87 20 108/74 99 Intake and Output 08/11/21 08/12/21 08/12/21 22:59 06:59 14:59 Intake Total 164.000 / 164.000 Output Total 400 / 850 Balance 164.000 / -686.000 -400 / -686.000 Intake: IV 164.000 / 164.000 Potassium Chloride / Wtr 10 meq 100 / 100 In 100 ml @ 100 mls/hr IV Q1H [facility] Rx#:[id number] Potassium Chloride 20 meq In 64.000 / 64.000 Lactated Ringer's 1,000 ml @ 80 mls/hr IV .[id number] [facility] Rx#: [id number] Output: Urine 400 / 850 Other: Weight 71.668 kg Lab Results 08/09/21 08/09/21 08/09/21 Range/Units 20:35 20:35 20:43 WBC 10.31 (4.8-10.8) K/uL RBC 3.77 L (4.2-5.4) M/uL Hgb 10.5 L (12.0-16.0) g/dL Hct 30.3 L (37-47) % MCV 80.4 (80-100) fL MCH 27.9 (25-34) pg MCHC 34.7 (32-36) g/dL RDW Std Deviation 44.5 (36.4-46.3) fL RDW Coeff of Kervin 15.1 H (11.5-14.5) % Plt Count 259 (130-400) K/uL MPV 9.8 (7.4-10.4) fL Immature Gran % (Auto) 0.5 % Neut % (Auto) 70.4 % Lymph % (Auto) 22.6 % [place] % (Auto) 5.8 % Eos % (Auto) 0.5 % Baso % (Auto) 0.2 % Neut # (Auto) 7.26 H (1.4-6.5) K/uL Lymph # (Auto) 2.33 (1.2-3.4) K/uL [place] # (Auto) 0.60 H (0.11-0.59) K/uL Eos # (Auto) 0.05 (0-0.5) K/uL Baso # (Auto) 0.02 (0-0.2) K/uL Immature Gran # (Auto) 0.05 H (0.00-0.02) K/uL Cord ABG pH (7.1-7.38) Cord ABG pCO2 (39.1-73.5) mmHg Cord ABG pO2 (4.1-31.7) mmHg Cord ABG HCO3 (19.7-28.5) mmol/L Cord ABG Base Excess (-9-1.8) mEq/L Cord ABG O2 Sat (<60) % Cord VBG pH (7.20-7.44) Cord VBG pCO2 (30.4-57.2) mmHg Cord VBG pO2 (14.1-43.3) mmHg Cord VBG HCO3 (18.4-26.8) mmol/L Cord VBG Base Excess (-7.7-1.9) mEq/L Cord VBG O2 Sat (<68) % Barometric Pressure mm/Hg Blood Gas Comments Sodium (136-145) mmol/L Potassium (3.5-5.1) mmol/L Chloride (98-107) mmol/L Carbon Dioxide (21-32) mmol/L Anion Gap (3-11) BUN (7-18) mg/dl Creatinine (0.6-1.2) mg/dl Est Cr Clr Drug Dosing ml/min Est GFR ( Amer) ml/min Est GFR (Non-Af Amer) ml/min BUN/Creatinine Ratio (10-20) Glucose (70-99) mg/dl Calcium (8.5-10.1) mg/dl Magnesium (1.8-2.4) mg/dl Total Bilirubin (0.2-1) mg/dl AST (15-37) U/L ALT (12-78) U/L Alkaline Phosphatase (45-117) U/L Total Protein (6.4-8.2) gm/dl Albumin (3.4-5.0) gm/dl Globulin (2.5-4.0) gm/dl Albumin/Globulin Ratio (0.9-2) Lipase (73-393) U/L Urine Color Urine Appearance (Clear) Urine pH (4.5-7.5) Ur Specific [place] (1.000-1.030) Urine Protein (Negative) Urine Glucose (UA) (Negative) Urine Ketones (Negative) Urine Blood (Negative) Urine Nitrite (Negative) Urine Bilirubin (Negative) Urine Urobilinogen (Negative) Ur Leukocyte Esterase (Negative) Urine WBC (Auto) (0-5) /hpf Urine RBC (Auto) (0-4) /hpf U Hyaline Cast (Auto) (0-5) /lpf U Epithel Cells (Auto) (0-5) /lpf Urine Bacteria (Auto) (Negative) Urine Opiates Screen (Neg) Ur Methadone, Qual (Neg) Urine Barbiturates (Neg) Ur Phencyclidine (PCP) (Neg) U Amphetamin/Meth Scrn (Neg) MDMA (Ecstasy) Screen (Neg) U Benzodiazepines Scrn (Neg) Ur Cocaine Metabolite (Neg) U Marijuana (THC) Screen (Neg) COVID-19 Eval Order Covid19 IDNow [facility] SARS-CoV-2, RNA, NAAT NEGATIVE (NEGATIVE) 08/09/21 08/09/21 08/10/21 Range/Units 22:27 22:27 06:25 WBC 14.50 H (4.8-10.8) K/uL RBC 2.99 L (4.2-5.4) M/uL Hgb 8.4 L (12.0-16.0) g/dL Hct 24.4 L (37-47) % MCV 81.6 (80-100) fL MCH 28.1 (25-34) pg MCHC 34.4 (32-36) g/dL RDW Std Deviation 44.4 (36.4-46.3) fL RDW Coeff of Kervin 15.1 H (11.5-14.5) % Plt Count 216 (130-400) K/uL MPV 10.2 (7.4-10.4) fL Immature Gran % (Auto) 0.3 % Neut % (Auto) 66.8 % Lymph % (Auto) 22.1 % [place] % (Auto) 10.3 % Eos % (Auto) 0.3 % Baso % (Auto) 0.2 % Neut # (Auto) 9.68 H (1.4-6.5) K/uL Lymph # (Auto) 3.20 (1.2-3.4) K/uL [place] # (Auto) 1.49 H (0.11-0.59) K/uL Eos # (Auto) 0.05 (0-0.5) K/uL Baso # (Auto) 0.03 (0-0.2) K/uL Immature Gran # (Auto) 0.05 H (0.00-0.02) K/uL Cord ABG pH 7.28 (7.1-7.38) Cord ABG pCO2 57 (39.1-73.5) mmHg Cord ABG pO2 10 (4.1-31.7) mmHg Cord ABG HCO3 26 (19.7-28.5) mmol/L Cord ABG Base Excess -1.7 (-9-1.8) mEq/L Cord ABG O2 Sat < 60.0 (<60) % Cord VBG pH 7.36 (7.20-7.44) Cord VBG pCO2 45 (30.4-57.2) mmHg Cord VBG pO2 21 (14.1-43.3) mmHg Cord VBG HCO3 25 (18.4-26.8) mmol/L Cord VBG Base Excess -1.0 (-7.7-1.9) mEq/L Cord VBG O2 Sat < 60.0 (<68) % Barometric Pressure 735.8 mm/Hg Blood Gas Comments A INFANT A Sodium (136-145) mmol/L Potassium (3.5-5.1) mmol/L Chloride (98-107) mmol/L Carbon Dioxide (21-32) mmol/L Anion Gap (3-11) BUN (7-18) mg/dl Creatinine (0.6-1.2) mg/dl Est Cr Clr Drug Dosing ml/min Est GFR ( Amer) ml/min Est GFR (Non-Af Amer) ml/min BUN/Creatinine Ratio (10-20) Glucose (70-99) mg/dl Calcium (8.5-10.1) mg/dl Magnesium (1.8-2.4) mg/dl Total Bilirubin (0.2-1) mg/dl AST (15-37) U/L ALT (12-78) U/L Alkaline Phosphatase (45-117) U/L Total Protein (6.4-8.2) gm/dl Albumin (3.4-5.0) gm/dl Globulin (2.5-4.0) gm/dl Albumin/Globulin Ratio (0.9-2) Lipase (73-393) U/L Urine Color Urine Appearance (Clear) Urine pH (4.5-7.5) Ur Specific [place] (1.000-1.030) Urine Protein (Negative) Urine Glucose (UA) (Negative) Urine Ketones (Negative) Urine Blood (Negative) Urine Nitrite (Negative) Urine Bilirubin (Negative) Urine Urobilinogen (Negative) Ur Leukocyte Esterase (Negative) Urine WBC (Auto) (0-5) /hpf Urine RBC (Auto) (0-4) /hpf U Hyaline Cast (Auto) (0-5) /lpf U Epithel Cells (Auto) (0-5) /lpf Urine Bacteria (Auto) (Negative) Urine Opiates Screen (Neg) Ur Methadone, Qual (Neg) Urine Barbiturates (Neg) Ur Phencyclidine (PCP) (Neg) U Amphetamin/Meth Scrn (Neg) MDMA (Ecstasy) Screen (Neg) U Benzodiazepines Scrn (Neg) Ur Cocaine Metabolite (Neg) U Marijuana (THC) Screen (Neg) COVID-19 Eval Order SARS-CoV-2, RNA, NAAT (NEGATIVE) 08/11/21 08/11/21 08/11/21 Range/Units 07:24 17:48 17:48 WBC 17.54 H (4.8-10.8) K/uL RBC 3.32 L (4.2-5.4) M/uL Hgb 8.9 L 9.3 L (12.0-16.0) g/dL Hct 25.6 L 26.8 L (37-47) % MCV 80.7 (80-100) fL MCH 28.0 (25-34) pg MCHC 34.7 (32-36) g/dL RDW Std Deviation 44.9 (36.4-46.3) fL RDW Coeff of Kervin 15.4 H (11.5-14.5) % Plt Count 266 (130-400) K/uL MPV 9.3 (7.4-10.4) fL Immature Gran % (Auto) 0.8 % Neut % (Auto) 75.4 % Lymph % (Auto) 15.5 % [place] % (Auto) 7.5 % Eos % (Auto) 0.6 % Baso % (Auto) 0.2 % Neut # (Auto) 13.23 H (1.4-6.5) K/uL Lymph # (Auto) 2.72 (1.2-3.4) K/uL [place] # (Auto) 1.32 H (0.11-0.59) K/uL Eos # (Auto) 0.10 (0-0.5) K/uL Baso # (Auto) 0.03 (0-0.2) K/uL Immature Gran # (Auto) 0.14 H (0.00-0.02) K/uL Cord ABG pH (7.1-7.38) Cord ABG pCO2 (39.1-73.5) mmHg Cord ABG pO2 (4.1-31.7) mmHg Cord ABG HCO3 (19.7-28.5) mmol/L Cord ABG Base Excess (-9-1.8) mEq/L Cord ABG O2 Sat (<60) % Cord VBG pH (7.20-7.44) Cord VBG pCO2 (30.4-57.2) mmHg Cord VBG pO2 (14.1-43.3) mmHg Cord VBG HCO3 (18.4-26.8) mmol/L Cord VBG Base Excess (-7.7-1.9) mEq/L Cord VBG O2 Sat (<68) % Barometric Pressure mm/Hg Blood Gas Comments Sodium 138 (136-145) mmol/L Potassium 3.0 L (3.5-5.1) mmol/L Chloride 104 (98-107) mmol/L Carbon Dioxide 28 (21-32) mmol/L Anion Gap 6.0 (3-11) BUN 6 L (7-18) mg/dl Creatinine 0.57 L (0.6-1.2) mg/dl Est Cr Clr Drug Dosing 125.2 ml/min Est GFR ( Amer) 142.2 ml/min Est GFR (Non-Af Amer) 122.7 ml/min BUN/Creatinine Ratio 10.8 (10-20) Glucose 98 (70-99) mg/dl Calcium 8.2 L (8.5-10.1) mg/dl Magnesium (1.8-2.4) mg/dl Total Bilirubin 0.3 (0.2-1) mg/dl AST 14 L (15-37) U/L ALT 9 L (12-78) U/L Alkaline Phosphatase 142 H (45-117) U/L Total Protein 6.4 (6.4-8.2) gm/dl Albumin 2.0 L (3.4-5.0) gm/dl Globulin 4.4 H (2.5-4.0) gm/dl Albumin/Globulin Ratio 0.5 L (0.9-2) Lipase 76 (73-393) U/L Urine Color Urine Appearance (Clear) Urine pH (4.5-7.5) Ur Specific Center Line (1.000-1.030) Urine Protein (Negative) Urine Glucose (UA) (Negative) Urine Ketones (Negative) Urine Blood (Negative) Urine Nitrite (Negative) Urine Bilirubin (Negative) Urine Urobilinogen (Negative) Ur Leukocyte Esterase (Negative) Urine WBC (Auto) (0-5) /hpf Urine RBC (Auto) (0-4) /hpf U Hyaline Cast (Auto) (0-5) /lpf U Epithel Cells (Auto) (0-5) /lpf Urine Bacteria (Auto) (Negative) Urine Opiates Screen (Neg) Ur Methadone, Qual (Neg) Urine Barbiturates (Neg) Ur Phencyclidine (PCP) (Neg) U Amphetamin/Meth Scrn (Neg) MDMA (Ecstasy) Screen (Neg) U Benzodiazepines Scrn (Neg) Ur Cocaine Metabolite (Neg) U Marijuana (THC) Screen (Neg) COVID-19 Eval Order SARS-CoV-2, RNA, NAAT (NEGATIVE) 08/11/21 08/11/21 08/12/21 Range/Units 21:24 21:24 06:19 WBC 14.73 H (4.8-10.8) K/uL RBC 2.98 L (4.2-5.4) M/uL Hgb 8.3 L (12.0-16.0) g/dL Hct 24.7 L (37-47) % MCV 82.9 (80-100) fL MCH 27.9 (25-34) pg MCHC 33.6 (32-36) g/dL RDW Std Deviation 46.5 H (36.4-46.3) fL RDW Coeff of Kervin 15.6 H (11.5-14.5) % Plt Count 250 (130-400) K/uL MPV 9.8 (7.4-10.4) fL Immature Gran % (Auto) 1.0 % Neut % (Auto) 69.9 % Lymph % (Auto) 20.7 % [place] % (Auto) 7.1 % Eos % (Auto) 1.1 % Baso % (Auto) 0.2 % Neut # (Auto) 10.30 H (1.4-6.5) K/uL Lymph # (Auto) 3.05 (1.2-3.4) K/uL [place] # (Auto) 1.05 H (0.11-0.59) K/uL Eos # (Auto) 0.16 (0-0.5) K/uL Baso # (Auto) 0.03 (0-0.2) K/uL Immature Gran # (Auto) 0.14 H (0.00-0.02) K/uL Cord ABG pH (7.1-7.38) Cord ABG pCO2 (39.1-73.5) mmHg Cord ABG pO2 (4.1-31.7) mmHg Cord ABG HCO3 (19.7-28.5) mmol/L Cord ABG Base Excess (-9-1.8) mEq/L Cord ABG O2 Sat (<60) % Cord VBG pH (7.20-7.44) Cord VBG pCO2 (30.4-57.2) mmHg Cord VBG pO2 (14.1-43.3) mmHg Cord VBG HCO3 (18.4-26.8) mmol/L Cord VBG Base Excess (-7.7-1.9) mEq/L Cord VBG O2 Sat (<68) % Barometric Pressure mm/Hg Blood Gas Comments Sodium (136-145) mmol/L Potassium (3.5-5.1) mmol/L Chloride (98-107) mmol/L Carbon Dioxide (21-32) mmol/L Anion Gap (3-11) BUN (7-18) mg/dl Creatinine (0.6-1.2) mg/dl Est Cr Clr Drug Dosing ml/min Est GFR ( Amer) ml/min Est GFR (Non-Af Amer) ml/min BUN/Creatinine Ratio (10-20) Glucose (70-99) mg/dl Calcium (8.5-10.1) mg/dl Magnesium (1.8-2.4) mg/dl Total Bilirubin (0.2-1) mg/dl AST (15-37) U/L ALT (12-78) U/L Alkaline Phosphatase (45-117) U/L Total Protein (6.4-8.2) gm/dl Albumin (3.4-5.0) gm/dl Globulin (2.5-4.0) gm/dl Albumin/Globulin Ratio (0.9-2) Lipase (73-393) U/L Urine Color Yellow Urine Appearance Clear (Clear) Urine pH 8.0 H (4.5-7.5) Ur Specific Center Line 1.019 (1.000-1.030) Urine Protein Negative (Negative) Urine Glucose (UA) Negative (Negative) Urine Ketones Trace H (Negative) Urine Blood 3+ H (Negative) Urine Nitrite Negative (Negative) Urine Bilirubin Negative (Negative) Urine Urobilinogen Negative (Negative) Ur Leukocyte Esterase Negative (Negative) Urine WBC (Auto) 1-5 (0-5) /hpf Urine RBC (Auto) 10-30 H (0-4) /hpf U Hyaline Cast (Auto) 0 (0-5) /lpf U Epithel Cells (Auto) 10-20 H (0-5) /lpf Urine Bacteria (Auto) Negative (Negative) Urine Opiates Screen Pos H (Neg) Ur Methadone, Qual Neg (Neg) Urine Barbiturates Neg (Neg) Ur Phencyclidine (PCP) Neg (Neg) U Amphetamin/Meth Scrn Neg (Neg) MDMA (Ecstasy) Screen Neg (Neg) U Benzodiazepines Scrn Neg (Neg) Ur Cocaine Metabolite Neg (Neg) U Marijuana (THC) Screen Neg (Neg) COVID-19 Eval Order SARS-CoV-2, RNA, NAAT (NEGATIVE) 08/12/21 Range/Units 06:19 WBC (4.8-10.8) K/uL RBC (4.2-5.4) M/uL Hgb (12.0-16.0) g/dL Hct (37-47) % MCV (80-100) fL MCH (25-34) pg MCHC (32-36) g/dL RDW Std Deviation (36.4-46.3) fL RDW Coeff of Kervin (11.5-14.5) % Plt Count (130-400) K/uL MPV (7.4-10.4) fL Immature Gran % (Auto) % Neut % (Auto) % Lymph % (Auto) % [place] % (Auto) % Eos % (Auto) % Baso % (Auto) % Neut # (Auto) (1.4-6.5) K/uL Lymph # (Auto) (1.2-3.4) K/uL [place] # (Auto) (0.11-0.59) K/uL Eos # (Auto) (0-0.5) K/uL Baso # (Auto) (0-0.2) K/uL Immature Gran # (Auto) (0.00-0.02) K/uL Cord ABG pH (7.1-7.38) Cord ABG pCO2 (39.1-73.5) mmHg Cord ABG pO2 (4.1-31.7) mmHg Cord ABG HCO3 (19.7-28.5) mmol/L Cord ABG Base Excess (-9-1.8) mEq/L Cord ABG O2 Sat (<60) % Cord VBG pH (7.20-7.44) Cord VBG pCO2 (30.4-57.2) mmHg Cord VBG pO2 (14.1-43.3) mmHg Cord VBG HCO3 (18.4-26.8) mmol/L Cord VBG Base Excess (-7.7-1.9) mEq/L Cord VBG O2 Sat (<68) % Barometric Pressure mm/Hg Blood Gas Comments Sodium 137 (136-145) mmol/L Potassium 3.4 L (3.5-5.1) mmol/L Chloride 107 (98-107) mmol/L Carbon Dioxide 24 (21-32) mmol/L Anion Gap 6.0 (3-11) BUN 6 L (7-18) mg/dl Creatinine 0.45 L (0.6-1.2) mg/dl Est Cr Clr Drug Dosing 158.6 ml/min Est GFR ( Amer) > 150.0 ml/min Est GFR (Non-Af Amer) 132.6 ml/min BUN/Creatinine Ratio 13.2 (10-20) Glucose 77 (70-99) mg/dl Calcium 7.7 L (8.5-10.1) mg/dl Magnesium 2.2 (1.8-2.4) mg/dl Total Bilirubin 0.4 (0.2-1) mg/dl AST 13 L (15-37) U/L ALT 8 L (12-78) U/L Alkaline Phosphatase 121 H (45-117) U/L Total Protein 5.7 L (6.4-8.2) gm/dl Albumin 1.8 L (3.4-5.0) gm/dl Globulin 3.9 (2.5-4.0) gm/dl Albumin/Globulin Ratio 0.5 L (0.9-2) Lipase (73-393) U/L Urine Color Urine Appearance (Clear) Urine pH (4.5-7.5) Ur Specific Center Line (1.000-1.030) Urine Protein (Negative) Urine Glucose (UA) (Negative) Urine Ketones (Negative) Urine Blood (Negative) Urine Nitrite (Negative) Urine Bilirubin (Negative) Urine Urobilinogen (Negative) Ur Leukocyte Esterase (Negative) Urine WBC (Auto) (0-5) /hpf Urine RBC (Auto) (0-4) /hpf U Hyaline Cast (Auto) (0-5) /lpf U Epithel Cells (Auto) (0-5) /lpf Urine Bacteria (Auto) (Negative) Urine Opiates Screen (Neg) Ur Methadone, Qual (Neg) Urine Barbiturates (Neg) Ur Phencyclidine (PCP) (Neg) U Amphetamin/Meth Scrn (Neg) MDMA (Ecstasy) Screen (Neg) U Benzodiazepines Scrn (Neg) Ur Cocaine Metabolite (Neg) U Marijuana (THC) Screen (Neg) COVID-19 Eval Order SARS-CoV-2, RNA, NAAT (NEGATIVE) PE: General: Alert, orientedx3, NAD CVS: S1S2 RRR Lungs; CTAB Abd: soft, NT, ND, BS+but sluggish, fundus firm, below Umbilicus Incision: Clean, dry, intact Perineum intact, Lochia rubra minimal Ext; NT, no edema AP: 30 yo s/p RC Section, pod# 3, ileus since last night, NPO, on IV fluids with KCL VSS Afebrile doing well Today's XR report pending Continue routine postop care Encourage ambulation, NPO All questions were answered Anticipate D/C home tomorrow Results & Data ([facility]) Vital Signs (Past 12 Hours) Vital Signs Temp Pulse Resp BP Pulse Ox 08/12/21 07:49 36.9 C 68 20 129/95 99 08/12/21 03:42 36.7 C 66 20 132/80 08/11/21 23:30 36.6 C 78 18 133/76
[2021-08-12] MEDS: POTASSIUM CHLORIDE 20 MEQ in LACTATED RINGER'S 1,000 ML IV SCH (10:03)
--- NOTE | 2021-08-12 10:40 | XRay Report ---
XR KUB/Abdomen 1 view CLINICAL HISTORY: ileus TECHNIQUE: 1 view of the abdomen was obtained. Comparison: Comparison is made to abdominal radiograph 08/11/2021 FINDINGS: Lung bases are unremarkable. Right upper quadrant surgical clips are seen. The osseous structures are grossly unremarkable. The bowel gas pattern is nonobstructive. A moderate amount of stool is noted w ithin the large bowel. Surgical alden are seen within the pelvis. IMPRESSION: Nonobstructive bowel gas pattern. Interval resolution of previously noted ileus. ACT 112: Negative or not required by law. Electronically signed by: Alin Cuevas M.D. 08/12/2021 10:39 AM
--- NOTE | 2021-08-12 13:05 | Hospitalist Progress Note ---
Date of Service August 12, 2021 Assessment & Plan (1) Abdominal pain: (2) Ileus: (3) Hypokalemia: Plan: This is a 30-year-old female who has a known past medical history of Crohn's disease typically treated with Remicade, asthma, GERD, horseshoe kidney, history of pyelonephritis who is postop day 2 . Her postoperative course has been unremarkable except last evening she developed increasing upper abdominal pain. KUB: Ileus Pt with Leukocytosis, 17k, increased from 14k on 08/10 She does not meet SIRS/SEPSIS criteria Given abd pain and increased WBC w/ hx of Crohn's obtain CT a/p with IV contrast Urinalysis unremarkable D/C Simethicone D/C Ferrous sulfate for now until bowels moving regularly Change colace to Senna S twice daily continue prn oxycodone, add IV dilaudid 0.5mg q6hr prn, avoid narcotics as much as possible in setting of Ileus unable to use nsaids due to recent surg hx of Crohns Repeat KUB with Nonobstructive bowel gas pattern. Interval resolution of previously noted ileus Had large bowel movement prior to evaluation today, passing flatus Advance to regular diet for lunch. If she tolerates, okay to discharge from medical perspective Hypokalemia Replaced Dispo: Per OB FULL CODE Pt was seen and examined in collaboration with Dr. Dinero, please see addendum Thank you for this consultation. We will follow the patient with you during their hospital stay. You can reach a member of the [facility] [address] [facility] Hospitalist Team 30/04 via hospitalist role on tiger text. Admission and Anticipated Discharge Date Admission Date: August 09, 2021 Supervising Physician Co-Signing Physician Notes Patient is doing okay. Her primary complaint is pain. Did have a large bowel movement today. Start patient on a regular diet. Denies any nausea vomiting. If patient tolerates diet, she can be discharged from a medicine perspective. I performed a history and physical examination of the patient on 08/12/21, including specifically H&P. I have discussed the patient's management with the advanced practitioner. Please refer to the [facility] note for the documented findings and plan of care. Subjective Seen and examined in 438 bed 1. Feeling better today with small bowel movement earlier today just before time of our evaluation. Feeling hungry and ready to try regular diet. Some abdominal tenderness status post . Denies any fever, chills, lightheadedness, headache, chest pain, shortness of breath, nausea and vomiting, dysuria or diarrhea. Review of Systems Review of Systems: At least ten systems reviewed and negative except as noted in the HPI. Physical Exam Physical Exam: Gen: WD/WN, NAD, sitting in bed, A&Ox3 HEENT: Normocephalic, atraumatic, conjunctivae moist, sclerae anicteric, mucous membranes moist Lung: Clear to Auscultation bilaterally, no wheezes/rales/rhonchi Heart: Regular rate, regular rhythm, no murmurs, rubs, or gallops Abdomen: Soft, mild postop TTP, ND +BS x 4 Extremities: no edema Skin: Warm, no rash Results & Data Results & Data ([facility]) Vital Signs (Past 12 Hours) Vital Signs Temp Pulse Resp BP Pulse Ox 08/12/21 07:49 36.9 C 68 20 129/95 99 08/12/21 03:42 36.7 C 66 20 132/80 Laboratory Results Short CBC 08/11/21 08/12/21 Range/Units 17:48 06:19 WBC 17.54 H 14.73 H (4.8-10.8) K/uL Hgb 9.3 L 8.3 L (12.0-16.0) g/dL Hct 26.8 L 24.7 L (37-47) % Plt Count 266 250 (130-400) K/uL BMP 08/11/21 08/12/21 17:48 06:19 Sodium 138 137 Potassium 3.0 L 3.4 L Chloride 104 107 Carbon Dioxide 28 24 BUN 6 L 6 L Creatinine 0.57 L 0.45 L Glucose 98 77 Calcium 8.2 L 7.7 L Liver Function 08/11/21 08/12/21 Range/Units 17:48 06:19 Total Bilirubin 0.3 0.4 (0.2-1) mg/dl AST 14 L 13 L (15-37) U/L ALT 9 L 8 L (12-78) U/L Alkaline Phosphatase 142 H 121 H (45-117) U/L Albumin 2.0 L 1.8 L (3.4-5.0) gm/dl Urine 08/11/21 Range/Units 21:24 Urine Color Yellow Urine Appearance Clear (Clear) Urine pH 8.0 H (4.5-7.5) Ur Specific [place] 1.019 (1.000-1.030) Urine Protein Negative (Negative) Urine Glucose (UA) Negative (Negative) Diagnostic Findings KUB X-Ray 08/11/21 17:33 KUB HISTORY: Acute lower abdominal pain with recent section abd pain COMPARISON: CT abdomen and pelvis 10/18/2020 FINDINGS: Cholecystectomy. Moderate gaseous distention of the large bowel. No definite bowel obstruction. No renal calculi. No ureteral calculi. Trace pneumoperitoneum. No pneumatosis identified. Transversely oriented surgical clips of the pelvis. No unexpected opaque foreign body identified. No acute fracture. IMPRESSION: 1. Surgical clips of the lower pelvis compatible with recent section. Trace pneumoperitoneum is an expected finding considering recent surgery. 2. Gaseous distention of the colon suggestive of ileus. ACT 112: Negative or not required by law. The above report was generated using voice recognition software. It may contain grammatical, syntax or spelling errors. Electronically signed by: Cj Castro M.D. 08/11/2021 6:22 PM Abdomen/Pelvis CT 08/11/21 18:[address] WITH IV CONTRAST CT DOSE: 299.90 mGy.cm HISTORY: Acute lower abdominal and pelvic pain status post section. abd pain TECHNIQUE: Multiaxial CT images of the abdomen and pelvis were performed following the IV administration of 92 cc of Optiray, A dose lowering technique was utilized adhering to the principles of ALARA. COMPARISON STUDY: KUB of same day, CT abdomen and pelvis 10/18/2020 FINDINGS: Trace pleural effusions. The imaged inferior cardiac chambers are unremarkable. Mild hepatomegaly with hepatic steatosis. The spleen measures the upper limits of normal in size. The pancreas and adrenal glands are unremarkable. Cholecystectomy. Horseshoe kidney. 3 mm nonobstructing calculus of the left moiety redemonstrated. Cyst of the right kidney measure up to 1.3 cm. Mild symmetric hydronephrosis without obstructing lesion identified. Urinary bladder wall thickening with partial distention. Enlarged heterogeneous post gravid appearance of the uterus with air and debris is within the endometrial canal and also within the scar the lower uterine segment. Air, inflammatory stranding and small amount of free fluid is noted within the intraperitoneal extraperitoneal tissues anterior to the lower uterine segment. No drainable fluid collection. Air and edema is also noted within the rectus sheath and adjacent subcutaneous tissues with anterior cutaneous skin alden. Small fat and fluid filled periumbilical hernia. Small volume pneumoperitoneum. Air and fluid-filled distended large and small bowel without transition point identified. Layering hyperdense material within the cecum and proximal appendix. No CT evidence of acute appendicitis. Duplicated IVC. Unremarkable aorta. No acute fracture. IMPRESSION: 1. Enlarged heterogeneous post gravid appearance of the uterus with air and debris present within the endometrial canal and scar of the lower uterine segment. Additional air with inflammatory stranding and trace free fluid is present within the intraperitoneal and extraperitoneal tissues anterior to the lower uterus, likely expected postoperative changes. No discrete postoperative fluid collection. 2. Air and fluid-filled mildly distended loops of large and small bowel without transition point is suggestive of ileus. 3. Trace pleural effusions. 4. Horseshoe kidney with mild symmetric hydronephrosis. 5. 3 mm nonobstructing calculus of the left kidney moiety redemonstrated. ACT 112: Negative or not required by law. The above report was generated using voice recognition software. It may contain grammatical, syntax or spelling errors. Electronically signed by: Cj Castro M.D. 08/11/2021 8:56 PM KUB X-Ray 08/12/21 07:00 XR KUB/Abdomen 1 view CLINICAL HISTORY: ileus TECHNIQUE: 1 view of the abdomen was obtained. Comparison: Comparison is made to abdominal radiograph 08/11/2021 FINDINGS: Lung bases are unremarkable. Right upper quadrant surgical clips are seen. The osseous structures are grossly unremarkable. The bowel gas pattern is nonobstructive. A moderate amount of stool is noted within the large bowel. Surgical alden are seen within the pelvis. IMPRESSION: Nonobstructive bowel gas pattern. Interval resolution of previously noted ileus. ACT 112: Negative or not required by law. Electronically signed by: Alin Cuevas M.D. 08/12/2021 10:39 AM
[2021-08-12] MEDS: oxyCODONE/ACETAMINOPHEN 10-325 TAB PO PRN ×2 (13:28→17:32)
--- NOTE | 2021-08-12 17:57 | Obstetrical Progress Note ---
Date of Service August 12, 2021 Assessment & Plan Admission and Anticipated Discharge Date Admission Date: August 09, 2021 Subjective Patient is reevaluated She feels much better and wants to go home Passing gas, BM+, ate full dinner with no N&V Pain is under control with meds Abd XRay: resolved ileus Abd: Soft, NT, ND, BS+, incision C/D/I, fundus firm below U No VB Plan to d/c home and f/u in office Discussed when to call All questions wee answered. Results & Data ([facility]) Vital Signs (Past 12 Hours) Vital Signs Temp Pulse Resp BP Pulse Ox 08/12/21 07:49 36.9 C 68 20 129/95 99
[2021-08-12 17:58] VITALS: BP 105/69; PULSE 75; TEMP 97.9; O2SAT 98
[2021-08-14 11:07] LABS: Codeine Urine NEGATIVE ng/mL (<50); Hydrocodone Urine NEGATIVE ng/mL (<50); Hydromor Urine NEGATIVE ng/mL (<50); Morphine Urine 1330 ng/mL (<50); Norhydrocodone Conf Ur NEGATIVE ng/mL (<50); Noroxycodone Urine 284 ng/mL (<50); Oxycodone Urine 60 ng/mL (<50); Oxymorph Urine 1670 ng/mL (<50)
--- NOTE | 2021-08-16 22:46 | Discharge Summary (DS) ---
DATE OF ADMISSION: 08/09/2021. DATE OF DISCHARGE: 08/12/2021. CHIEF COMPLAINT: 1. at term. 2. Prior section, wishes to have repeat . HISTORY OF PRESENT ILLNESS: This is a 30-year-old G2, P1, term , patient had prior section, presented to labor and delivery for labor check. She was found to be kelechi. Decisio n was therefore made to proceed with section on 08/09/2021. Surgery was otherwise unremarka ble. Details of surgery and pediatric information are on their respective records. The patient did well and met all milestones for recovery. On postop day #1, patient developed an ileus. Medicine co nsult was placed and with expectant management the patient's ileus resolved. She was discharged home in stable condition as stated above on 08/12/2021. PAST MEDICAL HISTORY: History of anxiety, asthma, gastroesophageal reflux disease, irritable bowel s yndrome and Crohn's disease. PAST SURGICAL HISTORY: History of cystoscopy, adenoidectomy, , cholecystectomy, colonoscopy , colposcopy and dental procedures. ALLERGIES: No known drug allergies. SOCIAL HISTORY: The patient denies tobacco, drug or alcohol use. FAMILY HISTORY: Noncontributory. REVIEW OF SYSTEMS: Negative except as dictated in the HPI. PHYSICAL EXAMINATION: VITAL SIGNS: On 08/12/2021 showed blood pressure 105/69, pulse of 75, respiration of 18, temperature 36.6. GENERAL: Well-developed, well-nourished white female in no acute distress. HEART: S1 and S2, regular rhythm and rate. LUNGS: Clear to auscultation bilaterally. ABDOMEN: Nontender, positive bowel sounds. Incision clean, dry and intact. EXTREMITIES: No cyanosis, clubbing or edema. LABORATORY DATA: At discharge, hemoglobin was 8.3, hematocrit was 24.7, platelets were 250. CONDITION ON DISCHARGE: Stable. OPERATIONS: Repeat section. DISCHARGE DIAGNOSIS: Postoperative after repeat section. PLAN ON DISCHARGE: The patient is discharged home with instructions regarding activity, diet, follow up appointment and medications. Job ID: [id number]
--- NOTE | 2021-08-25 11:52 | Coding Query ---
Your help is needed for correct coding of this account; please clarify if the patients Post-operative Ileus was: ( x) expected out of the surgery ( ) unexpected complication from the surgery ( )other please specify Thank you Anabel PADILLA
== END 2021-08-12 20:00 | disposition home or self-care (01) | DRG 787 ==
LOC: OPB 16:38 → 4S1 16:38 → 4S2 08-10 01:30